=== PATIENT | male | born 1985 | race Caucasian/White ===

== ENCOUNTER 2017-06-25 22:02 | Inpatient (IN) | payer OTHER ==
[2017-06-25] MEDS ORDERED: diazePAM 5 MG TABLET PO ONE (22:07)
[2017-06-25] MEDS ORDERED: diphenhydrAMINE HCL 50 MG CAPSULE PO PRN (22:07)
[2017-06-25] MEDS ORDERED: MENTHOL/PHENOL 1 EACH UD MM PRN (22:07)
[2017-06-25] MEDS ORDERED: IBUPROFEN 400 MG TABLET (FP) PO PRN (22:07)
[2017-06-25] MEDS ORDERED: LOPERAMIDE HCL 2 MG CAPSULE PO PRN (22:07)
[2017-06-25] MEDS ORDERED: hydrOXYzine PAMOATE 25 MG CAPSULE (FP) PO PRN (22:07)
[2017-06-25] MEDS ORDERED: MAG HYDROX/AL HYDROX/SIMETH 30 ML UNIT-DOSE CUP PO PRN (22:07)
[2017-06-25] MEDS ORDERED: NICOTINE POLACRILEX 2 MG GUM BC PRN (22:07)
[2017-06-25] MEDS ORDERED: MAGNESIUM CITRATE 300 ML BOTTLE PO PRN (22:07)
[2017-06-25] MEDS ORDERED: ACETAMINOPHEN 325 MG TABLET (FP) PO PRN (22:07)
[2017-06-25] MEDS ORDERED: P-EPHED 60MG/TRIPROLIDI 2.5MG TABLET PO PRN (22:07)
[2017-06-25] MEDS ORDERED: MAGNESIUM HYDROX 2400MG/30ML ORAL SUSPENSION 30 ML CUP PO PRN (22:07)
[2017-06-25] MEDS ORDERED: CYCLOBENZAPRINE HCL 5 MG TABLET PO PRN (22:10)
--- NOTE | 2017-06-25 22:17 | HP ---
COWS - Scale Resting Pulse: 1= MS 81-100 Sweatin= Beads of Sweat on Face Restless Observation: 1= Difficult to Sit Still Pupil Size: 1= Pupils >than Normal Bone or Joint Aches: 2= Severe Diffuse Aches Runny Nose/ Eye Tearin= Runny Nose/Eyes GI Upset > 30mins: 1= Stomach Cramp Tremor Observation: 2= Slight Tremor Visible Yawning Observation: 0= None Anxiety or Irritability: 2=Irritable/Anxious Goose Flesh Skin: 0=Smooth Skin COWS Score: 15 CIWA Score - CIWA Score Nausea/Vomitin Muscle Tremors: 3 Anxiety: 3 Agitation: 2 Paroxysmal Sweats: 2 Orientation: 0-Oriented Tacttile Disturbances: 2-Mild Itch/Numbness/Burn Auditory Disturbances: 2-Mild Harshness/Frighten Visual Disturbances: 2-Mild Sensitivity Headache: 2-Mild CIWA-Ar Total Score: 20 Admission ROS BHS - HPI Chief Complaint: DEPENDENT ON HEROIN, ETOH, COCAINE AND OCC. MARIJUANA Allergies/Adverse Reactions: Allergies Allergy/AdvReac Type Severity Reaction Status Date / Time No Known Allergies Allergy Verified 12/05/15 15:39 History of Present Illness: THE PT. IS REQUESTING ADMISSION TO THE DETOX UNIT AND CAME FOR MEDICAL CLEARANCE. Exam Limitations: No Limitations - Ebola screening Have you traveled outside of the country in the last 21 days: No Have you had contact with anyone from an Ebola affected area: No Have you been sick,other than usual withdrawal symptoms: No Do you have a fever: No - Review of Systems Constitutional: See HPI, Malaise, Weakness EENT: reports: See HPI Respiratory: reports: See HPI Cardiac: reports: See HPI GI: reports: See HPI, Nausea, Abdominal cramping : reports: No Symptoms Reported, See HPI Musculoskeletal: reports: See HPI, Muscle Pain, Muscle Weakness Integumentary: reports: See HPI, Flushing, Sweating Neuro: reports: See HPI, Headache, Tremors, Weakness Endocrine: reports: See HPI Hematology: reports: See HPI Psychiatric: reports: Judgement Intact, Orientated x3, Anxious, Depressed Patient History - Patient Medical History Hx Seizures: No Hx Human Immunodeficiency Virus (HIV): No Hx Hepatitis C: No Hx Depression: Yes (AND ANXIETY) - Patient Surgical History Past Surgical History: Yes Hx Orthopedic Surgery: Yes (FOR FRACTURED RT. ANKLE BONES IN 2014) Other Surgical History: SURGERY FOR ABSCESS ON THE NECK - SEVERAL YRS. AGO - Smoking Cessation Smoking history: Current every day smoker Aproximately how many cigarettes per day: 10 Hx Chewing Tobacco Use: No Initiated information on smoking cessation: Yes 'Breaking Loose' booklet given: 06/25/17 - Substance & Tx. History Hx Alcohol Use: Yes Hx Substance Use: Yes Substance Use Type: Alcohol, Cocaine, Heroin, Marijuana Hx Substance Use Treatment: Yes - Substances Abused Alcohol Route: Oral Frequency: Daily Amount used: LIQUOR 20 SHOTS/D Age of first use: 7 Date of Last Use: 06/25/17 Heroin Route: Injection Frequency: Daily Amount used: 15 Age of first use: 25 Date of Last Use: 06/25/17 Cocaine Route: Injection Frequency: 3-6 times per week Amount used: $200/ON ALT. DAY Age of first use: 25 Date of Last Use: 06/24/17 Marijuana/Hashish Route: Smoking Frequency: 1-3 times last 30 days Amount used: $10/ONCE A MONTH Age of first use: 9 Date of Last Use: 06/18/17 Family Disease History - Family Disease History Family Disease History: Other: Father (DEPENDENT ON ETOH AND DRUGS), Mother ( DEPENDENT ON ETOH AND DRUGS) Admission Physical Exam [facility] - Physical General Appearance: Yes: No Apparent Distress, Nourished, Appropriately Dressed , Alcohol on Breath, Tremorous, Irritable, Sweating, Anxious HEENTM: Yes: Hearing grossly Normal, Normocephalic, Normal Voice, DEXTER, Pharynx Normal Respiratory: Yes: Chest Non-Tender, Lungs Clear, Normal Breath Sounds, No Respiratory Distress, No Accessory Muscle Use Neck: Yes: No masses,lesions,Nodules, Supple, Trachea in good position Breast: Yes: Breast Exam Deferred, Axillae without masses Cardiology: Yes: Regular Rhythm, S1, S2, Tachycardia Abdominal: Yes: Normal Bowel Sounds, Non Tender, Soft, Protuberent Back: Yes: Normal Inspection Musculoskeletal: Yes: full range of Motion, Gait Steady, Pelvis Stable, Muscle Pain, Muscle weakness Extremities: Yes: Normal Capillary Refill, Normal Range of Motion, Non-Tender, Tremors Neurological: Yes: ticket dispenser changer II-XII NML intact, Fully Oriented, Alert, Motor Strength 5/5, Normal Response, Depressed Affect Integumentary: Yes: Normal Color, Moist, Track [place] Lymphatic: Yes: Within Normal Limits - Diagnostic (1) Heroin dependence Current Visit: Yes Status: Chronic (2) EtOH dependence Current Visit: Yes Status: Chronic Qualifiers: Substance use status: uncomplicated Qualified Code(s): F10.20 - Alcohol dependence, uncomplicated; F10.20 - Alcohol dependence, uncomplicated; F10.20 - Alcohol dependence, uncomplicated (3) Cocaine dependence Current Visit: Yes Status: Chronic Qualifiers: Substance use status: uncomplicated Qualified Code(s): F14.20 - Cocaine dependence, uncomplicated; F14.20 - Cocaine dependence, uncomplicated; F14.20 - Cocaine dependence, uncomplicated (4) Cannabis dependence Current Visit: Yes Status: Chronic (5) Anxiety and depression Current Visit: Yes Status: Chronic (6) Nicotine dependence Current Visit: Yes Status: Chronic Qualifiers: Nicotine product type: cigarettes (7) Methadone maintenance therapy patient Current Visit: Yes Status: Chronic Cleared for Admission S - Detox or Rehab S Level of Care: Medically Managed Detox Regimen/Protocol: Valium S Breath Alcohol Content Breath Alcohol Content: 0.138 Vital Signs - Vital Signs Vital Signs Refused: No Temperature: 96.9 F Temperature Source: Oral Pulse Rate: 94 Respiratory Rate: 16 Blood Pressure: 139/94 BP Location: Left Arm - Height Height: 5 ft 6 in - Weight Weight: 190 lb Weight Measurement Method: Estimated by Patient Body Mass Index (BMI): 30.7 Urine Drug Screen - Test Device Lot Number: [id number] Expiration Date: 02/22/19 - Control Is Test Valid: Yes - Results Drug Screen Negative: No Urine Drug Screen Results: THC-Marijuana, KAYLEE-Cocaine, OPI-Opiates, BZO- Benzodiazepines, MTD-Methadone
[2017-06-25 22:42] VITALS: BMI 30.7
[2017-06-25] MEDS: guaiFENesin/D-METHORPHAN HB 10 ML UNIT-DOSE CUPS PO PRN (23:20)
[2017-06-25] MEDS: diazePAM 5 MG TABLET PO SCH (23:24)
[2017-06-26] MEDS: diazePAM 5 MG TABLET PO SCH ×3 (05:26→22:03)
[2017-06-26] MEDS: guaiFENesin/D-METHORPHAN HB 10 ML UNIT-DOSE CUPS PO PRN (07:19)
[2017-06-26] MEDS: METHADONE HCL 10 MG TABLET PO SCH (07:19)
[2017-06-26] MEDS: cloNIDine HCL 0.1 MG TABLET PO PRN (07:24)
[2017-06-26] MEDS: diazePAM 5 MG TABLET PO PRN ×2 (10:09→16:56)
[2017-06-26] MEDS: PRENATAL VITAMINS W/ FOLIC ACID TABLET (FP) PO SCH (10:09)
[2017-06-26] MEDS: NICOTINE 14 MG/24 HOURS TOPICAL PATCH TD SCH (10:10)
[2017-06-26] MEDS ORDERED: cloNIDine HCL 0.1 MG TABLET PO ONE (10:44)
--- NOTE | 2017-06-26 10:44 | PN ---
S CIWA - CIWA Score Nausea/Vomitin Muscle Tremors: 4-Moderate,w/Arms Extend Anxiety: 4-Mod. Anxious/Guarded Agitation: 4-Moderately Restless Paroxysmal Sweats: 3 Orientation: 0-Oriented Tacttile Disturbances: 0-None Auditory Disturbances: 0-None Visual Disturbances: 0-None Headache: 0-None Present CIWA-Ar Total Score: 18 BHS COWS - Scale Resting Pulse: 2= CO 101-120 Sweatin= Chills/Flushing Restless Observation: 1= Difficult to Sit Still Pupil Size: 1= Pupils >than Normal Bone or Joint Aches: 2= Severe Diffuse Aches Runny Nose/ Eye Tearin= Runny Nose/Eyes GI Upset > 30mins: 2= Nausea/Diarrhea Tremor Observation of Outstretched Hands: 2= Slight Tremor Visible Yawning Observation: 1= 1-2x During Session Anxiety or Irritability: 2=Irritable/Anxious Goose Flesh Skin: 3=Piloerection COWS Score: 19 S Progress Note (SOAP) Subjective: nausea, sweats, interrupted sleep, anxiety, tremors, body aches, tachycardia Objective: 06/26/17 10:43 Vital Signs - 24 hr 06/25/17 06/25/17 06/26/17 22:41 23:03 01:42 Temperature 96.9 F L 97.5 F L Pulse Rate 94 H 93 H Respiratory 16 18 18 Rate Blood Pressure 139/94 140/81 06/26/17 06/26/17 06/26/17 03:30 06:19 08:58 Temperature 97.3 F L 97.5 F L Pulse Rate 115 H 106 H Respiratory 18 18 20 Rate Blood Pressure 152/94 155/83 labs pending, tachycardia and hypertension noted to give all prn valium Assessment: 06/26/17 10:44 withdrawal sx Plan: cont detox, fluids, symptomatic relief of withdrawal prn valium as ordered to be given encoruage ambulation
--- NOTE | 2017-06-26 11:23 | CONSULT ---
[facility] Psychiatric Consult - Data Date of interview: 06/26/17 Admission source: [facility] Identifying data: First admission to [facility] for this 31 y/o male seeking detox treatment on for heroin,cocaine,alcohol and marijuana dependence.Patient s single,a father of three,domiciled,unemployed and supported by relatives. Substance Abuse History: Confirmed by patient in this session. Smoking Cessation. Smoking history: Current every day smoker. Aproximately how many cigarettes per day: 10. Hx Chewing Tobacco Use: No. Initiated information on smoking cessation: Yes. 'Breaking Loose' booklet given: 06/25/17. - Substance & Tx. History. Hx Alcohol Use: Yes. Hx Substance Use: Yes. Substance Use Type : Alcohol, Cocaine, Heroin, Marijuana. Hx Substance Use Treatment: Yes. - Substances Abused. Alcohol. Route: Oral. Frequency: Daily. Amount used: LIQUOR 20 SHOTS/D. Age of first use: 7. Date of Last Use: 06/25/17. Heroin. Route: Injection. Frequency: Daily. Amount used: 15. Age of first use: 25. Date of Last Use: 06/25/17. Cocaine. Route: Injection. Frequency : 3-6 times per week. Amount used: $200/ON ALT. DAY. Age of first use: 25. Date of Last Use: 06/24/17. Marijuana/Hashish. Route: Smoking. Frequency: 1-3 times last 30 days. Amount used: $10/ONCE A MONTH. Age of first use: 9. Date of Last Use: 06/18/17 Medical History: Remarkable for bronchial asthma,sciatica,nephrolithiasis and a history of orthosurgery for fracture of right ankle (2014). Psychiatric History: No reported history of psychiatric hospitalizations.Diagnosed with ADHD during adolescence.No OPD care.Mr Alex reports that he used to be on methadone maintenance (160 mg/day) at [facility] (downstairs).Patient denies history of sucicide attempts. Physical/Sexual Abuse/Trauma History: Patient denies history of abuse. Additional Comment: Urine Drug Screen Results: THC-Marijuana, KAYLEE-Cocaine, OPI- Opiates, BZO-Benzodiazepines, MTD-Methadone.Noted. Mental Status Exam - Mental Status Exam Alert and Oriented to: Time, Place, Person Cognitive Function: Good Patient Appearance: Well Groomed (tattoos on arms + forearms) Mood: Nervous, Withdrawn Affect: Mood Congruent Patient Behavior: Fatigued, Cooperative (superficiallly) Speech Pattern: Clear Voice Loudness: Normal Thought Process: Goal Oriented Thought Disorder: Not Present Hallucinations: Denies Suicidal Ideation: Denies Homicidal Ideation: Denies Insight/Judgement: Poor Sleep: Poorly, Difficulty falling asleep (wants ambien) Appetite: Good Muscle strength/Tone: Normal Gait/Station: Normal Psychiatric Findings - Problem List (Roann 1, 2,3) (1) Opioid dependence on agonist therapy Current Visit: Yes Status: Acute (2) EtOH dependence Current Visit: Yes Status: Chronic Qualifiers: Substance use status: uncomplicated Qualified Code(s): F10.20 - Alcohol dependence, uncomplicated; F10.20 - Alcohol dependence, uncomplicated; F10.20 - Alcohol dependence, uncomplicated (3) Cannabis dependence Current Visit: Yes Status: Acute (4) Cocaine dependence Current Visit: Yes Status: Acute Qualifiers: Substance use status: uncomplicated Qualified Code(s): F14.20 - Cocaine dependence, uncomplicated; F14.20 - Cocaine dependence, uncomplicated; F14.20 - Cocaine dependence, uncomplicated (5) Nicotine dependence Current Visit: Yes Status: Acute Qualifiers: Nicotine product type: cigarettes (6) Substance induced mood disorder Current Visit: Yes Status: Acute (7) Back pain Current Visit: Yes Status: Chronic (8) Insomnia Current Visit: Yes Status: Acute - Initial Treatment Plan Initial Treatment Plan: Psychoeducation.Detoxification.Ambien 10 mg po hs prn.Patient is made aware of parasomnias.Agrees with this careplan.Observation.
[2017-06-26] MEDS: PANTOPRAZOLE 40 MG TABLET (FP) PO SCH (11:53)
[2017-06-26] MEDS: NAPROXEN 500 MG TABLET (FP) PO SCH ×2 (11:54→22:03)
--- NOTE | 2017-06-26 11:57 | EKG ---
Test Reason : Blood Pressure : / mmHG Vent. Rate : 094 BPM Atrial Rate : 094 BPM P-R Int : 112 ms QRS Dur : 096 ms QT Int : 400 ms P-R-T Axes : 051 044 077 degrees QTc Int : 500 ms NORMAL SINUS RHYTHM LEFT VENTRICULAR HYPERTROPHY WITH REPOLARIZATION ABNORMALITY PROLONGED QT ABNORMAL ECG NO PREVIOUS ECGS AVAILABLE Confirmed by STEPHANIE DALY MD ([id number]) on 06/26/2017 11:56:55 AM Referred By: Richard Lira Confirmed By:STEPHANIE DALY MD
[2017-06-26] MEDS ORDERED: ZOLPIDEM TARTRATE 5 MG TABLET PO PRN (12:22)
[2017-06-26] MEDS: CYCLOBENZAPRINE HCL 5 MG TABLET PO SCH ×2 (13:31→22:03)
[2017-06-26] MEDS: GABAPENTIN 100 MG CAPSULE (FP) PO SCH ×2 (13:31→22:03)
[2017-06-26 13:33] LABS: MCHC 34.2 g/dl (32.0-35.9); MEAN CELL VOLUME 90.8 fl (80-96); MEAN PLT VOLUME 9.3 fl (7.5-11.1); PLATELET COUNT 289 K/MM3 (134-434); RDW 14.6 % (11.9-15.9); WHITE BLOOD COUNT 10.2 K/mm3 (4.0-10.0)
[2017-06-26 13:46] LABS: ALBUMIN 3.9 g/dl (3.4-5.0); ANION GAP 13 (8-16); CALCIUM 9.6 mg/dL (8.5-10.1); CO2 31 mmol/L (21-32); GLUCOSE,RANDOM 112 mg/dL (74-106); SGOT/AST 60 U/L (15-37); SGPT/ALT 63 U/L (12-78)
[2017-06-26 13:48] LABS: ALK PHOS 133 U/L (45-117); BILIRUBIN,TOTAL 1.3 mg/dL (0.2-1.0)
[2017-06-26 14:45] LABS: HIV 1 & 2 AB NEGATIVE; HIV 1 AGp24 NEGATIVE
[2017-06-26] MEDS ORDERED: ZOLPIDEM TARTRATE 10 MG TABLET (PARK CARE ONLY) PO PRN (22:00)
[2017-06-26] MEDS ORDERED: THIAMINE HCL 100 MG TABLET (FP) PO SCH (22:00)
[2017-06-27] MEDS: GABAPENTIN 100 MG CAPSULE (FP) PO SCH ×2 (05:37→15:00)
[2017-06-27] MEDS: METHADONE HCL 10 MG TABLET PO SCH (05:37)
[2017-06-27] MEDS: CYCLOBENZAPRINE HCL 5 MG TABLET PO SCH ×2 (05:37→15:00)
[2017-06-27 09:19] VITALS: TEMP 97.8
[2017-06-27] MEDS ORDERED: diazePAM 5 MG TABLET PO SCH (10:00)
[2017-06-27] MEDS: PRENATAL VITAMINS W/ FOLIC ACID TABLET (FP) PO SCH (10:06)
[2017-06-27] MEDS: NAPROXEN 500 MG TABLET (FP) PO SCH (10:06)
[2017-06-27] MEDS: cloNIDine HCL 0.1 MG TABLET PO PRN (10:06)
[2017-06-27] MEDS: PANTOPRAZOLE 40 MG TABLET (FP) PO SCH (10:06)
[2017-06-27] MEDS: NICOTINE 14 MG/24 HOURS TOPICAL PATCH TD SCH (10:08)
--- NOTE | 2017-06-27 11:26 | PN ---
S CIWA - CIWA Score Nausea/Vomitin Muscle Tremors: 4-Moderate,w/Arms Extend Anxiety: 3 Agitation: 1-Slight > Activity Paroxysmal Sweats: No Perspiration Orientation: 2-Disoriented Date<2 days Tacttile Disturbances: 2-Mild Itch/Numbness/Burn Auditory Disturbances: 0-None Visual Disturbances: 0-None Headache: 3-Moderate CIWA-Ar Total Score: 20 BHS COWS - Scale Resting Pulse: 0= NV 80 or Below Sweatin= Chills/Flushing Restless Observation: 1= Difficult to Sit Still Pupil Size: 0= Normal to Room Light Bone or Joint Aches: 2= Severe Diffuse Aches Runny Nose/ Eye Tearin= None GI Upset > 30mins: 1= Stomach Cramp Tremor Observation of Outstretched Hands: 2= Slight Tremor Visible Yawning Observation: 0= None Anxiety or Irritability: 2=Irritable/Anxious Goose Flesh Skin: 3=Piloerection COWS Score: 12 S Progress Note (SOAP) Subjective: Body Aches, Tremors, H/A, Fatigue, Vomiting. Objective: PT. A & O X 2 (DISORIENTED ABOUT DAY / DATE). NO ACUTE DISTRESS. 06/27/17 11:23 Vital Signs Temperature 97.8 F 06/27/17 09:18 Pulse Rate 79 06/27/17 09:18 Respiratory Rate 18 06/27/17 09:18 Blood Pressure 144/84 06/27/17 09:18 O2 Sat by Pulse Oximetry (%) Laboratory Tests 06/26/17 06/26/17 06/26/17 09:00 09:00 09:00 WBC 10.2 H D RBC 4.80 Hgb 14.9 Hct 43.6 MCV 90.8 MCH 31.0 MCHC 34.2 RDW 14.6 Plt Count 289 MPV 9.3 Sodium 133 L Potassium 3.6 D Chloride 89 L D Carbon Dioxide 31 Anion Gap 13 BUN 13 D Creatinine 1.0 Creat Clearance w eGFR > 60 Random Glucose 112 H Calcium 9.6 Total Bilirubin 1.3 H D AST 60 H D ALT 63 D Alkaline Phosphatase 133 H D Total Protein 8.0 Albumin 3.9 RPR Titer Nonreactive HIV 1&2 Antibody Screen HIV P24 Antigen 06/26/17 09:00 WBC RBC Hgb Hct MCV MCH MCHC RDW Plt Count MPV Sodium Potassium Chloride Carbon Dioxide Anion Gap BUN Creatinine Creat Clearance w eGFR Random Glucose Calcium Total Bilirubin AST ALT Alkaline Phosphatase Total Protein Albumin RPR Titer HIV 1&2 Antibody Screen Negative HIV P24 Antigen Negative LABS NOTED. UA RESULTS PENDING. 06/27/17 11:25 Assessment: 06/27/17 11:24 WITHDRAWAL SYMPTOMS. Plan: CONTINUE DETOX. INCREASE DAILY PO FLUID INTAKE.
[2017-06-27] MEDS ORDERED: TRIMETHOBENZAMIDE HCL 200MG/2ML INJ IM PRN (12:45)
[2017-06-27] MEDS: diazePAM 5 MG TABLET PO PRN (12:46)
[2017-06-27 14:23] VITALS: BP 123/63; PULSE 84
--- NOTE | 2017-06-27 15:17 | DS ---
[facility] Detox Discharge Summary Admission Date: 06/25/17 Discharge Date: 06/27/17 - History Present History: Alcohol Dependence, Cannabis Dependence, Cocaine Dependence, Opioid Dependence, MMTP Additional Comments: PATIENT DOES NOT WISH TO COMPLETE DETOX REGIMEN. PATIENT PREFERS TO RETURN TO HIS PREVIOUS MMTP PROGRAM ([facility] OTP / MMTP PROGRAM, [facility].) FOR TREATMENT RATHER THAN TO STAY TO COMPLETE DETOX REGIMEN. PATIENT ADVISED TO GO IMMEDIATELY TO NEAREST ER SHOULD ANY INTOLERABLE DETOX SYMPTOMS DEVELOP AT ANY TIME. PATIENT LEFT DETOX UNIT IN STABLE MEDICAL CONDITION. Pertinent Past History: MMTP, Anxiety / Depression, Insomnia. - Physical Exam Results Vital Signs: Vital Signs Temperature 97.8 F 06/27/17 14:22 Pulse Rate 84 06/27/17 14:22 Respiratory Rate 18 06/27/17 14:22 Blood Pressure 123/63 06/27/17 14:22 O2 Sat by Pulse Oximetry (%) Pertinent Admission Physical Exam Findings: WITHDRAWAL SYMPTOMS. Laboratory Tests 06/26/17 06/26/17 06/26/17 09:00 09:00 09:00 WBC 10.2 H D RBC 4.80 Hgb 14.9 Hct 43.6 MCV 90.8 MCH 31.0 MCHC 34.2 RDW 14.6 Plt Count 289 MPV 9.3 Sodium 133 L Potassium 3.6 D Chloride 89 L D Carbon Dioxide 31 Anion Gap 13 BUN 13 D Creatinine 1.0 Creat Clearance w eGFR > 60 Random Glucose 112 H Calcium 9.6 Total Bilirubin 1.3 H D AST 60 H D ALT 63 D Alkaline Phosphatase 133 H D Total Protein 8.0 Albumin 3.9 RPR Titer Nonreactive HIV 1&2 Antibody Screen HIV P24 Antigen 06/26/17 09:00 WBC RBC Hgb Hct MCV MCH MCHC RDW Plt Count MPV Sodium Potassium Chloride Carbon Dioxide Anion Gap BUN Creatinine Creat Clearance w eGFR Random Glucose Calcium Total Bilirubin AST ALT Alkaline Phosphatase Total Protein Albumin RPR Titer HIV 1&2 Antibody Screen Negative HIV P24 Antigen Negative LABS NOTED. - Treatment Hospital Course: Detoxed Safely - Medication Discharge Medications: Ambulatory Orders NK [No Known Home Medication] 06/25/17 - Diagnosis (1) Cannabis dependence Current Visit: Yes Status: Acute (2) Cocaine dependence Current Visit: Yes Status: Acute Qualifiers: Substance use status: uncomplicated Qualified Code(s): F14.20 - Cocaine dependence, uncomplicated; F14.20 - Cocaine dependence, uncomplicated; F14.20 - Cocaine dependence, uncomplicated (3) Insomnia Current Visit: Yes Status: Acute Qualifiers: Insomnia type: unspecified Qualified Code(s): G47.00 - Insomnia, unspecified; G47.00 - Insomnia, unspecified (4) Nicotine dependence Current Visit: Yes Status: Chronic Qualifiers: Nicotine product type: cigarettes Substance use status: uncomplicated Qualified Code(s): F17.210 - Nicotine dependence, cigarettes, uncomplicated; F17.210 - Nicotine dependence, cigarettes, uncomplicated (5) Opioid dependence on agonist therapy Current Visit: Yes Status: Chronic (6) Substance induced mood disorder Current Visit: Yes Status: Acute (7) Anxiety and depression Current Visit: Yes Status: Chronic (8) Methadone maintenance therapy patient Current Visit: Yes Status: Chronic - AMA Did Patient Leave Against Medical Advice: Yes (PT DID NOT WISH TO STAY TO COMPLETE DETOX. SEE COMMENTS SECTION ABOVE.)
[2017-06-27 17:10] LABS: URINE APPEARANCE SLCLOUDY; URINE BILIRUBIN NEGATIVE (NEGATIVE); URINE BLOOD NEGATIVE (NEGATIVE); URINE COLOR AMBER; URINE GLUCOSE (UA) NEGATIVE (NEGATIVE); URINE KETONE TRACE (NEGATIVE); URINE LEUK ESTERASE NEGATIVE (NEGATIVE); URINE NITRITE NEGATIVE (NEGATIVE)
[2017-06-27 17:14] LABS: URINE PROTEIN 1+ (NEGATIVE)
[2017-06-27 18:03] LABS: URINE HYALINE CAST 5 /lpf; URINE MUCUS MANY; URINE RBC 5 /hpf (0-3); URINE WBC 18 /hpf (3-5)
[2017-06-29] MEDS ORDERED: diazePAM 5 MG TABLET PO SCH (10:00)
== END 2017-06-27 14:50 | disposition left against medical advice (07) | DRG 770 ==
LOC: YASAS 22:02 → Y3N 22:03 → UNDODISIN 06-27 14:55
PROVIDERS: ADMIT Internal Medicine; ATTEND Internal Medicine
PROC: HZ2ZZZZ Detoxification Services for Substance Abuse Treatment (ICD-10-PCS; principal; 2017-06-25)
DX: F11.20 Opioid dependence, uncomplicated (principal); F10.20 Alcohol dependence, uncomplicated; F14.20 Cocaine dependence, uncomplicated; F12.20 Cannabis dependence, uncomplicated; F17.210 Nicotine dependence, cigarettes, uncomplicated; F19.24 Other psychoactive substance dependence with psychoactive substance-induced mood disorder; F41.8 Other specified anxiety disorders; G47.00 Insomnia, unspecified; M54.5 Low back pain; G89.29 Other chronic pain
CPT/HCPCS: 36415; 80053; 81003; 81015; 85027; 86593; 87389; 93005; 93010

== ENCOUNTER 2018-02-02 21:28 | Inpatient (IN) | payer OTHER ==
[2018-02-02 23:39] VITALS: BMI 29.1
--- NOTE | 2018-02-03 02:34 | HP ---
COWS - Scale Resting Pulse: 1= OK 81-100 Sweatin=Flushed/Facial Moisture Restless Observation: 1= Difficult to Sit Still Pupil Size: 1= Pupils >than Normal Bone or Joint Aches: 2= Severe Diffuse Aches Runny Nose/ Eye Tearin= Nasal Congestion GI Upset > 30mins: 3= Vomiting/Diarrhea (vomiting x 7, diarrhea x 5) Tremor Observation: 2= Slight Tremor Visible Yawning Observation: 0= None Anxiety or Irritability: 2=Irritable/Anxious Goose Flesh Skin: 0=Smooth Skin COWS Score: 15 CIWA Score - CIWA Score Nausea/Vomitin Muscle Tremors: 4-Moderate,w/Arms Extend Anxiety: 4-Mod. Anxious/Guarded Agitation: 2 Paroxysmal Sweats: No Perspiration Orientation: 0-Oriented Tacttile Disturbances: 0-None Auditory Disturbances: 0-None Visual Disturbances: 0-None Headache: 3-Moderate CIWA-Ar Total Score: 16 Admission ROS S - HPI Chief Complaint: Alcohol and heroin withdrawal symptoms Allergies/Adverse Reactions: Allergies Allergy/AdvReac Type Severity Reaction Status Date / Time No Known Allergies Allergy Verified 02/03/18 02:42 History of Present Illness: 32 years old male with aq long history of alcohol and heroin dependence is seeking admission to detox. Patient has been to previous detox and reports 3 years of sobriety. He has medical history of HTN, asthma, depression and anxiety. Patient has an abscess to his left arm. He starts that he wasa treated at [facility] and released today. He denies suicide attempt and suicidal ideation at this time. He is on methadone 120mg tablet at [facility]. LDM was 02/02/2018. Dose is yet to be confirmed by the nurse. Exam Limitations: No Limitations - Ebola screening Have you traveled outside of the country in the last 21 days: No Have you had contact with anyone from an Ebola affected area: No Have you been sick,other than usual withdrawal symptoms: No Do you have a fever: No - Review of Systems Constitutional: Chills, Loss of Appetite, Malaise, Night Sweats, Changes in sleep EENT: reports: No Symptoms Reported Respiratory: reports: No Symptoms reported Cardiac: reports: No Symptoms Reported GI: reports: Diarrhea, Nausea, Poor Appetite, Poor Fluid Intake, Vomiting : reports: No Symptoms Reported Musculoskeletal: reports: Back Pain, Muscle Pain Integumentary: reports: No Symptoms Reported Neuro: reports: Tremors Endocrine: reports: No Symptoms Reported Hematology: reports: No Symptoms Reported Psychiatric: reports: Orientated x3, Agitated, Anxious, Depressed Other Systems: Reviewed and Negative Patient History - Patient Medical History Hx Asthma: Yes (VENTOLIN) Hx Chronic Obstructive Pulmonary Disease (COPD): No Hx Cardiac Disorders: No Hx Hypertension: Yes (Not on medication) Hx Seizures: No Hx Diabetes: No Hx Gastrointestinal Disorders: No Hx Genitourinary Disorders: No Hx Sexually Transmitted Disorders: No Hx Renal Disease (ESRD): No Hx Human Immunodeficiency Virus (HIV): No Hx Hepatitis C: No Hx Depression: Yes Hx Suicide Attempt: No Hx Bipolar Disorder: No Hx Schizophrenia: No - Patient Surgical History Past Surgical History: Yes Hx Neurologic Surgery: No Hx Cataract Extraction: No Hx Cardiac Surgery: No Hx Lung Surgery: No Hx Breast Surgery: No Hx Breast Biopsy: No Hx Abdominal Surgery: No Hx Appendectomy: No Hx Cholecystectomy: No Hx Genitourinary Surgery: No Hx Section: No Hx Orthopedic Surgery: Yes (FOR FRACTURED RT. ANKLE BONES IN 2014) Other Surgical History: SURGERY FOR ABSCESS ON THE NECK - SEVERAL YRS. AGO Anesthesia Reaction: No - PPD History Previous Implant?: Yes Documented Results: Negative w/o proof Implanted On Prior [facility] Admission?: No Date: 06/27/17 - Smoking Cessation Smoking history: Current every day smoker Have you smoked in the past 12 months: Yes Aproximately how many cigarettes per day: 10 Hx Chewing Tobacco Use: No Initiated information on smoking cessation: Yes 'Breaking Loose' booklet given: 02/03/18 - Substance & Tx. History Hx Alcohol Use: Yes Hx Substance Use: Yes Substance Use Type: Cocaine, Heroin Hx Substance Use Treatment: Yes - Substances Abused Cocaine Route: Smoking Frequency: Daily Amount used: $50 Age of first use: 17 Date of Last Use: 02/02/18 Heroin Route: Inhalation Frequency: Daily Amount used: 10bags Age of first use: 19 Date of Last Use: 02/03/18 Alcohol Route: Oral Frequency: Daily Amount used: liquor- 2nibs Age of first use: 18 Date of Last Use: 02/03/18 xanax Route: Oral Frequency: Daily Amount used: 2mg Age of first use: 17 Date of Last Use: 02/01/18 Family Disease History - Family Disease History Family Disease History: Other: Father (DEPENDENT ON ETOH AND DRUGS), Mother ( DEPENDENT ON ETOH AND DRUGS) Admission Physical Exam [facility] - Vital Signs Vital Signs: Vital Signs - 24 hr 02/02/18 23:36 Temperature 98.6 F Pulse Rate 93 H Respiratory 20 Rate Blood Pressure 155/91 - Physical General Appearance: Yes: Moderate Distress, Tremorous, Irritable, Sweating, Anxious HEENTM: Yes: Normal ENT Inspection, Normal Voice, DEXTER Respiratory: Yes: Lungs Clear, Normal Breath Sounds, No Respiratory Distress Neck: Yes: Supple Breast: Yes: Breast Exam Deferred Cardiology: Yes: Regular Rhythm, Regular Rate Abdominal: Yes: Normal Bowel Sounds, Soft Genitourinary: Yes: Within Normal Limits Back: Yes: Normal Inspection Musculoskeletal: Yes: Back pain, Muscle Pain Extremities: Yes: Tremors Neurological: Yes: Alert, Normal Mood/Affect Integumentary: Yes: Dry, Rash Lymphatic: Yes: Within Normal Limits - Diagnostic (1) HTN (hypertension) Current Visit: Yes Status: Chronic (2) Asthma Current Visit: Yes Status: Chronic Qualifiers: Asthma complication type: unspecified (3) Cannabis dependence Current Visit: Yes Status: Chronic (4) Cocaine dependence Current Visit: Yes Status: Chronic Qualifiers: Substance use status: uncomplicated Qualified Code(s): F14.20 - Cocaine dependence, uncomplicated (5) Anxiety and depression Current Visit: Yes Status: Chronic (6) Methadone maintenance therapy patient Current Visit: Yes Status: Chronic (7) Opioid dependence on agonist therapy Current Visit: Yes Status: Chronic S Breath Alcohol Content Breath Alcohol Content: 0.228 Urine Drug Screen - Results Drug Screen Negative: No Urine Drug Screen Results: KAYLEE-Cocaine, OPI-Opiates, BZO-Benzodiazepines, MTD- Methadone
[2018-02-03] MEDS ORDERED: diazePAM 5 MG TABLET PO ONE (02:47)
[2018-02-03] MEDS ORDERED: guaiFENesin/D-METHORPHAN HB 10 ML UNIT-DOSE CUPS PO PRN (02:47)
[2018-02-03] MEDS ORDERED: MAGNESIUM CITRATE 300 ML BOTTLE PO PRN (02:47)
[2018-02-03] MEDS ORDERED: MAG HYDROX/AL HYDROX/SIMETH 30 ML UNIT-DOSE CUP PO PRN (02:47)
[2018-02-03] MEDS ORDERED: MAGNESIUM HYDROX 2400MG/30ML ORAL SUSPENSION 30 ML CUP PO PRN (02:47)
[2018-02-03] MEDS ORDERED: P-EPHED 60MG/TRIPROLIDI 2.5MG TABLET PO PRN (02:47)
[2018-02-03] MEDS ORDERED: NICOTINE POLACRILEX 2 MG GUM BC PRN (02:47)
[2018-02-03] MEDS ORDERED: LOPERAMIDE HCL 2 MG CAPSULE PO PRN (02:47)
[2018-02-03] MEDS ORDERED: MENTHOL/PHENOL 1 EACH UD MM PRN (02:47)
[2018-02-03] MEDS: ACETAMINOPHEN 325 MG TABLET (FP) PO PRN ×2 (03:22→22:08)
[2018-02-03] MEDS: IBUPROFEN 400 MG TABLET (FP) PO PRN ×2 (05:35→18:14)
[2018-02-03] MEDS: diazePAM 5 MG TABLET PO SCH ×3 (05:36→22:07)
[2018-02-03] MEDS: diazePAM 5 MG TABLET PO PRN ×2 (07:34→17:32)
--- NOTE | 2018-02-03 09:23 | EKG ---
Test Reason : Blood Pressure : / mmHG Vent. Rate : 083 BPM Atrial Rate : 083 BPM P-R Int : 134 ms QRS Dur : 090 ms QT Int : 420 ms P-R-T Axes : 002 008 006 degrees QTc Int : 493 ms NORMAL SINUS RHYTHM MODERATE VOLTAGE CRITERIA FOR LVH, MAY BE NORMAL VARIANT CANNOT RULE OUT INFERIOR INFARCT , AGE UNDETERMINED ABNORMAL ECG WHEN COMPARED WITH ECG OF 25-JUN-2017 22:58, MINIMAL CRITERIA FOR INFERIOR INFARCT ARE NOW PRESENT ST NO LONGER DEPRESSED IN LATERAL LEADS T WAVE INVERSION NO LONGER EVIDENT IN ANTERIOR LEADS Confirmed by RENATA CRAWFORD, HEELN ([id number]) on 02/03/2018 9:22:47 AM Referred By: Greg Smith Confirmed By:HELEN YANEZ MD
[2018-02-03] MEDS ORDERED: METHADONE HCL 10 MG TABLET PO SCH (09:45)
[2018-02-03] MEDS: PRENATAL VITAMINS W/ FOLIC ACID TABLET (FP) PO SCH (10:11)
[2018-02-03] MEDS: NICOTINE 14 MG/24 HOURS TOPICAL PATCH TD SCH (10:11)
[2018-02-03 10:12] LABS: URINE APPEARANCE CLEAR; URINE BILIRUBIN NEGATIVE (<2.0 mg/dL); URINE COLOR YELLOW; URINE GLUCOSE (UA) NEGATIVE (NEGATIVE); URINE KETONE TRACE (NEGATIVE); URINE LEUK ESTERASE NEGATIVE (NEGATIVE); URINE NITRITE NEGATIVE (NEGATIVE); URINE PROTEIN NEGATIVE (NEGATIVE); URINE UROBILINOGEN 4.0 E.U/dl mg/dL (0.2-1.0)
[2018-02-03 10:21] LABS: HEMATOCRIT 38.1 % (35.4-49); HEMOGLOBIN 13.2 GM/dL (11.7-16.9); MCH 33.2 pg (25.7-33.7); MCHC 34.7 g/dl (32.0-35.9); MEAN CELL VOLUME 95.5 fl (80-96); MEAN PLT VOLUME 8.7 fl (7.5-11.1); PLATELET COUNT 233 K/MM3 (134-434); RBC 3.99 M/mm3 (4.00-5.60); RDW 13.6 % (11.9-15.9); WHITE BLOOD COUNT 5.9 K/mm3 (4.0-10.0)
[2018-02-03 10:40] LABS: CHLORIDE 103 mmol/L (98-107); POTASSIUM 4.2 mmol/L (3.5-5.1); SODIUM 141 mmol/L (136-145)
[2018-02-03 11:12] LABS: ALBUMIN 3.1 g/dl (3.4-5.0); ALK PHOS 114 U/L (45-117); ANION GAP 9 (8-16); BILIRUBIN,TOTAL 0.7 mg/dL (0.2-1.0); BLOOD UREA NITROGEN 11 mg/dL (7-18); CALCIUM 8.6 mg/dL (8.5-10.1); CO2 29 mmol/L (21-32); CREATININE 0.8 mg/dL (0.7-1.3); GLUCOSE,RANDOM 100 mg/dL (74-106); SGOT/AST 116 U/L (15-37); SGPT/ALT 61 U/L (12-78); TOT PROT 6.6 g/dl (6.4-8.2)
[2018-02-03] MEDS ORDERED: CEPHALEXIN MONOHYDRATE 500 MG CAPSULE (UD) PO ONE (13:30)
--- NOTE | 2018-02-03 15:37 | EKG ---
Test Reason : Blood Pressure : / mmHG Vent. Rate : 071 BPM Atrial Rate : 071 BPM P-R Int : 106 ms QRS Dur : 094 ms QT Int : 450 ms P-R-T Axes : 014 044 039 degrees QTc Int : 489 ms SINUS RHYTHM WITH SHORT TN PROLONGED QT ABNORMAL ECG WHEN COMPARED WITH ECG OF 03-FEB-2018 03:31, MINIMAL CRITERIA FOR INFERIOR INFARCT ARE NO LONGER PRESENT Confirmed by RENATA CRAWFORD, HELEN ([id number]) on 02/03/2018 3:37:41 PM Referred By: Greg Smtih Confirmed By:HELEN YANEZ MD
[2018-02-03] MEDS ORDERED: cloNIDine HCL 0.1 MG TABLET PO ONE ×2 (16:05→22:20)
[2018-02-03] MEDS: CEPHALEXIN MONOHYDRATE 500 MG CAPSULE (UD) PO SCH ×2 (17:32→23:19)
[2018-02-03] MEDS ORDERED: ONDANSETRON *ODT* 4 MG TABLET SL PRN (18:01)
[2018-02-03] MEDS: ALBUTEROL SO4 18 GM HFA INHALER IH PRN (18:11)
[2018-02-03] MEDS: THIAMINE HCL 100 MG TABLET (FP) PO SCH (22:08)
--- NOTE | 2018-02-03 22:26 | PN ---
[facility] Progress Note (SOAP) Subjective: Nurse, Mr. Casey Sharma reports that patient's blood pressure is B/P 165/112 , HR 73. Patient is asymptomatic. Objective: 02/03/18 22:25 Vital Signs Temperature 97.5 F L 02/03/18 22:20 Pulse Rate 73 02/03/18 22:20 Respiratory Rate 22 02/03/18 22:20 Blood Pressure 165/112 02/03/18 22:20 O2 Sat by Pulse Oximetry (%) Laboratory Last Values WBC 5.9 K/mm3 (4.0-10.0) D 02/03/18 08:00 RBC 3.99 M/mm3 (4.00-5.60) L 02/03/18 08:00 Hgb 13.2 GM/dL (11.7-16.9) D 02/03/18 08:00 Hct 38.1 % (35.4-49) 02/03/18 08:00 MCV 95.5 fl (80-96) 02/03/18 08:00 MCH 33.2 pg (25.7-33.7) 02/03/18 08:00 MCHC 34.7 g/dl (32.0-35.9) 02/03/18 08:00 RDW 13.6 % (11.9-15.9) 02/03/18 08:00 Plt Count 233 K/MM3 (134-434) 02/03/18 08:00 MPV 8.7 fl (7.5-11.1) 02/03/18 08:00 Sodium 141 mmol/L (136-145) 02/03/18 08:00 Potassium 4.2 mmol/L (3.5-5.1) 02/03/18 08:00 Chloride 103 mmol/L (98-107) D 02/03/18 08:00 Carbon Dioxide 29 mmol/L (21-32) 02/03/18 08:00 Anion Gap 9 (8-16) 02/03/18 08:00 BUN 11 mg/dL (7-18) 02/03/18 08:00 Creatinine 0.8 mg/dL (0.7-1.3) 02/03/18 08:00 Creat Clearance w eGFR > 60 (>60) 02/03/18 08:00 Random Glucose 100 mg/dL (74-106) 02/03/18 08:00 Calcium 8.6 mg/dL (8.5-10.1) 02/03/18 08:00 Total Bilirubin 0.7 mg/dL (0.2-1.0) D 02/03/18 08:00 AST 116 U/L (15-37) H D 02/03/18 08:00 ALT 61 U/L (12-78) 02/03/18 08:00 Alkaline Phosphatase 114 U/L (45-117) 02/03/18 08:00 Total Protein 6.6 g/dl (6.4-8.2) 02/03/18 08:00 Albumin 3.1 g/dl (3.4-5.0) L D 02/03/18 08:00 Urine Color Yellow 02/03/18 08:00 Urine Appearance Clear 02/03/18 08:00 Urine pH 6.0 (5.0-8.0) 02/03/18 08:00 Ur Specific [place] 1.021 (1.001-1.035) 02/03/18 08:00 Urine Protein Negative (NEGATIVE) 02/03/18 08:00 Urine Glucose (UA) Negative (NEGATIVE) 02/03/18 08:00 Urine Ketones Trace (NEGATIVE) H 02/03/18 08:00 Urine Blood Negative (NEGATIVE) 02/03/18 08:00 Urine Nitrite Negative (NEGATIVE) 02/03/18 08:00 Urine Bilirubin Negative (<2.0 mg/dL) 02/03/18 08:00 Urine Urobilinogen 4.0 e.u/dl mg/dL (0.2-1.0) 02/03/18 08:00 Ur Leukocyte Esterase Negative (NEGATIVE) 02/03/18 08:00 RPR Titer Nonreactive (NONREACTIVE) 02/03/18 08:00 labs reviewed Assessment: 02/03/18 22:25 HTN Withdrawal symptoms Plan: Clonidine 0.1mg tablet oral stat
[2018-02-04] MEDS: CEPHALEXIN MONOHYDRATE 500 MG CAPSULE (UD) PO SCH ×4 (05:47→23:18)
[2018-02-04] MEDS: METHADONE HCL 40 MG DISPERSABLE TABLET PO SCH (05:47)
[2018-02-04] MEDS: diazePAM 5 MG TABLET PO SCH ×3 (05:47→22:14)
[2018-02-04] MEDS: ACETAMINOPHEN 325 MG TABLET (FP) PO PRN ×3 (05:49→20:45)
[2018-02-04] MEDS: diazePAM 5 MG TABLET PO PRN ×3 (08:42→17:26)
[2018-02-04] MEDS: NICOTINE 14 MG/24 HOURS TOPICAL PATCH TD SCH (10:36)
[2018-02-04] MEDS: PRENATAL VITAMINS W/ FOLIC ACID TABLET (FP) PO SCH (10:36)
[2018-02-04] MEDS: ALBUTEROL SO4 18 GM HFA INHALER IH PRN ×2 (10:48→13:55)
--- NOTE | 2018-02-04 14:51 | CONSULT ---
[facility] Psychiatric Consult - Data Date of interview: 02/04/18 Admission source: Self-referred Identifying data: Patient is a 32 y/o male single, unemployed , homeless, father of 4 children Substance Abuse History: He came in for Detox of ETOH, cocaine, Heroin, Cocaine , Cigarettes, Methadone dependent. Refer to [facility] for more detailed drug history Medical History: Medical history is significant for bronchial asthma,sciatica, nephrolithiasis and a history of orthosurgery for fracture of right ankle (2014) . Psychiatric History: Patient prior psychistric admission, he was diagnosed with ADHD during his latency age, his mother has refused him to be medicated with psychostimulant Physical/Sexual Abuse/Trauma History: Patient denies history of abuse Mental Status Exam - Mental Status Exam Alert and Oriented to: Place, Person Cognitive Function: Grossly Intact Patient Appearance: Well Groomed Mood: Depressed, Nervous Affect: Appropriate Patient Behavior: Cooperative Speech Pattern: Clear Voice Loudness: Normal Thought Process: Intact Thought Disorder: Not Present Hallucinations: None Suicidal Ideation: None Homicidal Ideation: None Insight/Judgement: Poor Sleep: Well Appetite: Good Muscle strength/Tone: Normal Gait/Station: Normal Psychiatric Findings - Problem List ([place] 1, 2,3) (1) Asthma Current Visit: Yes Status: Chronic Qualifiers: Asthma complication type: unspecified (2) Cannabis dependence Current Visit: Yes Status: Acute (3) Cocaine dependence Current Visit: Yes Status: Acute Qualifiers: Substance use status: uncomplicated Qualified Code(s): F14.20 - Cocaine dependence, uncomplicated (4) HTN (hypertension) Current Visit: Yes Status: Chronic (5) Methadone maintenance therapy patient Current Visit: Yes Status: Chronic (6) Opioid dependence on agonist therapy Current Visit: Yes Status: Acute - Initial Treatment Plan Initial Treatment Plan: Continue in patient Detox treatment
--- NOTE | 2018-02-04 15:52 | PN ---
[facility] CIWA - CIWA Score Nausea/Vomitin Muscle Tremors: 3 Anxiety: 3 Agitation: 3 Paroxysmal Sweats: 3 Orientation: 0-Oriented Tacttile Disturbances: 1-Very Mild Itch/Numbness Auditory Disturbances: 0-None Visual Disturbances: 0-None Headache: 1-Very Mild CIWA-Ar Total Score: 17 [facility] Progress Note (SOAP) Subjective: Tremor, anxious, nauseous Objective: 02/04/18 15:51 Last Vital Signs Temp Pulse Resp BP Pulse Ox 97.7 F 58 L 16 131/82 02/04/18 09:36 02/04/18 09:36 02/04/18 09:36 02/04/18 09:36 Laboratory Tests 02/03/18 02/03/18 02/03/18 08:00 08:00 08:00 WBC 5.9 D RBC 3.99 L Hgb 13.2 D Hct 38.1 MCV 95.5 MCH 33.2 MCHC 34.7 RDW 13.6 Plt Count 233 MPV 8.7 Sodium 141 Potassium 4.2 Chloride 103 D Carbon Dioxide 29 Anion Gap 9 BUN 11 Creatinine 0.8 Creat Clearance w eGFR > 60 Random Glucose 100 Calcium 8.6 Total Bilirubin 0.7 D AST 116 H D ALT 61 Alkaline Phosphatase 114 Total Protein 6.6 Albumin 3.1 L D Urine Color Urine Appearance Urine pH Ur Specific [place] Urine Protein Urine Glucose (UA) Urine Ketones Urine Blood Urine Nitrite Urine Bilirubin Urine Urobilinogen Ur Leukocyte Esterase RPR Titer Nonreactive 02/03/18 08:00 WBC RBC Hgb Hct MCV MCH MCHC RDW Plt Count MPV Sodium Potassium Chloride Carbon Dioxide Anion Gap BUN Creatinine Creat Clearance w eGFR Random Glucose Calcium Total Bilirubin AST ALT Alkaline Phosphatase Total Protein Albumin Urine Color Yellow Urine Appearance Clear Urine pH 6.0 Ur Specific [place] 1.021 Urine Protein Negative Urine Glucose (UA) Negative Urine Ketones Trace H Urine Blood Negative Urine Nitrite Negative Urine Bilirubin Negative Urine Urobilinogen 4.0 e.u/dl Ur Leukocyte Esterase Negative RPR Titer Labs reviewed Assessment: 02/04/18 15:51 Withdrawal symptoms Plan: Continue detox Encouraged PO hydration
[2018-02-04] MEDS: IBUPROFEN 400 MG TABLET (FP) PO PRN (18:48)
[2018-02-04] MEDS: THIAMINE HCL 100 MG TABLET (FP) PO SCH (22:14)
[2018-02-04] MEDS: MELATONIN 5 MG TABLETS PO PRN (22:15)
[2018-02-05] MEDS: CEPHALEXIN MONOHYDRATE 500 MG CAPSULE (UD) PO SCH ×3 (05:45→17:12)
[2018-02-05] MEDS: METHADONE HCL 40 MG DISPERSABLE TABLET PO SCH (05:45)
[2018-02-05] MEDS: diazePAM 5 MG TABLET PO PRN ×4 (05:47→21:37)
[2018-02-05] MEDS: diazePAM 5 MG TABLET PO SCH ×2 (10:15→21:37)
[2018-02-05] MEDS: NICOTINE 14 MG/24 HOURS TOPICAL PATCH TD SCH (10:15)
[2018-02-05] MEDS: PRENATAL VITAMINS W/ FOLIC ACID TABLET (FP) PO SCH (10:15)
[2018-02-05] MEDS: IBUPROFEN 400 MG TABLET (FP) PO PRN ×2 (12:25→20:10)
--- NOTE | 2018-02-05 13:43 | PN ---
[facility] CIWA - CIWA Score Nausea/Vomitin-Mild Nausea/No Vomiting Muscle Tremors: 4-Moderate,w/Arms Extend Anxiety: 4-Mod. Anxious/Guarded Agitation: 4-Moderately Restless Paroxysmal Sweats: 1-Minimal Palms Moist Orientation: 0-Oriented Tacttile Disturbances: 0-None Auditory Disturbances: 0-None Visual Disturbances: 0-None Headache: 0-None Present CIWA-Ar Total Score: 14 S Progress Note (SOAP) Subjective: sweat tremor anxiety restlessness trouble sleep at night Objective: 02/05/18 13:42 Vital Signs Temperature 97.0 F L 02/05/18 10:13 Pulse Rate 66 02/05/18 10:13 Respiratory Rate 20 02/05/18 10:13 Blood Pressure 138/88 02/05/18 10:13 O2 Sat by Pulse Oximetry (%) Laboratory Last Values WBC 5.9 K/mm3 (4.0-10.0) D 02/03/18 08:00 RBC 3.99 M/mm3 (4.00-5.60) L 02/03/18 08:00 Hgb 13.2 GM/dL (11.7-16.9) D 02/03/18 08:00 Hct 38.1 % (35.4-49) 02/03/18 08:00 MCV 95.5 fl (80-96) 02/03/18 08:00 MCH 33.2 pg (25.7-33.7) 02/03/18 08:00 MCHC 34.7 g/dl (32.0-35.9) 02/03/18 08:00 RDW 13.6 % (11.9-15.9) 02/03/18 08:00 Plt Count 233 K/MM3 (134-434) 02/03/18 08:00 MPV 8.7 fl (7.5-11.1) 02/03/18 08:00 Sodium 141 mmol/L (136-145) 02/03/18 08:00 Potassium 4.2 mmol/L (3.5-5.1) 02/03/18 08:00 Chloride 103 mmol/L (98-107) D 02/03/18 08:00 Carbon Dioxide 29 mmol/L (21-32) 02/03/18 08:00 Anion Gap 9 (8-16) 02/03/18 08:00 BUN 11 mg/dL (7-18) 02/03/18 08:00 Creatinine 0.8 mg/dL (0.7-1.3) 02/03/18 08:00 Creat Clearance w eGFR > 60 (>60) 02/03/18 08:00 Random Glucose 100 mg/dL (74-106) 02/03/18 08:00 Calcium 8.6 mg/dL (8.5-10.1) 02/03/18 08:00 Total Bilirubin 0.7 mg/dL (0.2-1.0) D 02/03/18 08:00 AST 116 U/L (15-37) H D 02/03/18 08:00 ALT 61 U/L (12-78) 02/03/18 08:00 Alkaline Phosphatase 114 U/L (45-117) 02/03/18 08:00 Total Protein 6.6 g/dl (6.4-8.2) 02/03/18 08:00 Albumin 3.1 g/dl (3.4-5.0) L D 02/03/18 08:00 Urine Color Yellow 02/03/18 08:00 Urine Appearance Clear 02/03/18 08:00 Urine pH 6.0 (5.0-8.0) 02/03/18 08:00 Ur Specific [place] 1.021 (1.001-1.035) 02/03/18 08:00 Urine Protein Negative (NEGATIVE) 02/03/18 08:00 Urine Glucose (UA) Negative (NEGATIVE) 02/03/18 08:00 Urine Ketones Trace (NEGATIVE) H 02/03/18 08:00 Urine Blood Negative (NEGATIVE) 02/03/18 08:00 Urine Nitrite Negative (NEGATIVE) 02/03/18 08:00 Urine Bilirubin Negative (<2.0 mg/dL) 02/03/18 08:00 Urine Urobilinogen 4.0 e.u/dl mg/dL (0.2-1.0) 02/03/18 08:00 Ur Leukocyte Esterase Negative (NEGATIVE) 02/03/18 08:00 RPR Titer Nonreactive (NONREACTIVE) 02/03/18 08:00 lab noted Assessment: 02/05/18 13:42 withdrawal sx Plan: continue detox
[2018-02-05] MEDS: ALBUTEROL SO4 18 GM HFA INHALER IH PRN (20:11)
[2018-02-05] MEDS: THIAMINE HCL 100 MG TABLET (FP) PO SCH (21:37)
[2018-02-05] MEDS: MELATONIN 5 MG TABLETS PO PRN (21:39)
[2018-02-06] MEDS: CEPHALEXIN MONOHYDRATE 500 MG CAPSULE (UD) PO SCH ×2 (00:06→05:33)
[2018-02-06] MEDS: METHADONE HCL 40 MG DISPERSABLE TABLET PO SCH (05:33)
[2018-02-06] MEDS: IBUPROFEN 400 MG TABLET (FP) PO PRN (05:36)
[2018-02-06 06:14] VITALS: BP 149/83; PULSE 65; TEMP 97
--- NOTE | 2018-02-06 08:40 | DS ---
[facility] Detox Discharge Summary Admission Date: 02/03/18 Discharge Date: 02/06/18 - History Present History: Alcohol Dependence Additional Comments: 32 years old male admitted on 02/03/18 for alcohol withdrawal sx feeling better tolerated detox regimen well denies alcohol withdrawal sx patient is alert oriented x 3 no acute distress, wants to return home today and return to [facility] the next day for rehab patient is on methadone maintenance program 120 mg po daily, agrees to follow up with the methadone program for addiction and biopsychosocial services. - Physical Exam Results Vital Signs: Vital Signs Temperature 97.0 F L 02/06/18 06:00 Pulse Rate 65 02/06/18 06:00 Respiratory Rate 18 02/06/18 06:00 Blood Pressure 149/83 02/06/18 06:00 O2 Sat by Pulse Oximetry (%) Pertinent Admission Physical Exam Findings: withdrawal sx Vital Signs Temperature 97.0 F L 02/06/18 06:00 Pulse Rate 65 02/06/18 06:00 Respiratory Rate 18 02/06/18 06:00 Blood Pressure 149/83 02/06/18 06:00 O2 Sat by Pulse Oximetry (%) Laboratory Last Values WBC 5.9 K/mm3 (4.0-10.0) D 02/03/18 08:00 RBC 3.99 M/mm3 (4.00-5.60) L 02/03/18 08:00 Hgb 13.2 GM/dL (11.7-16.9) D 02/03/18 08:00 Hct 38.1 % (35.4-49) 02/03/18 08:00 MCV 95.5 fl (80-96) 02/03/18 08:00 MCH 33.2 pg (25.7-33.7) 02/03/18 08:00 MCHC 34.7 g/dl (32.0-35.9) 02/03/18 08:00 RDW 13.6 % (11.9-15.9) 02/03/18 08:00 Plt Count 233 K/MM3 (134-434) 02/03/18 08:00 MPV 8.7 fl (7.5-11.1) 02/03/18 08:00 Sodium 141 mmol/L (136-145) 02/03/18 08:00 Potassium 4.2 mmol/L (3.5-5.1) 02/03/18 08:00 Chloride 103 mmol/L (98-107) D 02/03/18 08:00 Carbon Dioxide 29 mmol/L (21-32) 02/03/18 08:00 Anion Gap 9 (8-16) 02/03/18 08:00 BUN 11 mg/dL (7-18) 02/03/18 08:00 Creatinine 0.8 mg/dL (0.7-1.3) 02/03/18 08:00 Creat Clearance w eGFR > 60 (>60) 02/03/18 08:00 Random Glucose 100 mg/dL (74-106) 02/03/18 08:00 Calcium 8.6 mg/dL (8.5-10.1) 02/03/18 08:00 Total Bilirubin 0.7 mg/dL (0.2-1.0) D 02/03/18 08:00 AST 116 U/L (15-37) H D 02/03/18 08:00 ALT 61 U/L (12-78) 02/03/18 08:00 Alkaline Phosphatase 114 U/L (45-117) 02/03/18 08:00 Total Protein 6.6 g/dl (6.4-8.2) 02/03/18 08:00 Albumin 3.1 g/dl (3.4-5.0) L D 02/03/18 08:00 Urine Color Yellow 02/03/18 08:00 Urine Appearance Clear 02/03/18 08:00 Urine pH 6.0 (5.0-8.0) 02/03/18 08:00 Ur Specific [place] 1.021 (1.001-1.035) 02/03/18 08:00 Urine Protein Negative (NEGATIVE) 02/03/18 08:00 Urine Glucose (UA) Negative (NEGATIVE) 02/03/18 08:00 Urine Ketones Trace (NEGATIVE) H 02/03/18 08:00 Urine Blood Negative (NEGATIVE) 02/03/18 08:00 Urine Nitrite Negative (NEGATIVE) 02/03/18 08:00 Urine Bilirubin Negative (<2.0 mg/dL) 02/03/18 08:00 Urine Urobilinogen 4.0 e.u/dl mg/dL (0.2-1.0) 02/03/18 08:00 Ur Leukocyte Esterase Negative (NEGATIVE) 02/03/18 08:00 RPR Titer Nonreactive (NONREACTIVE) 02/03/18 08:00 lab noted - Treatment Hospital Course: Detox Protocol Followed, Detoxed Safely, Responded well, Discharged Condition Good, Rehab Referral Accepted Patient has Accepted a Rehab Referral to: [facility] - Medication Discharge Medications: Ambulatory Orders Methadone [Dolophine -] 120 mg PO DAILY 02/05/18 - Diagnosis (1) Asthma Current Visit: Yes Status: Chronic Qualifiers: Asthma severity: mild Asthma persistence: intermittent Asthma complication type: with status asthmaticus Qualified Code(s): J45.22 - Mild intermittent asthma with status asthmaticus (2) HTN (hypertension) Current Visit: Yes Status: Chronic Qualifiers: Hypertension type: essential hypertension Qualified Code(s): I10 - Essential (primary) hypertension (3) Methadone maintenance therapy patient Current Visit: Yes Status: Chronic - AMA Did Patient Leave Against Medical Advice: No
[2018-02-07] MEDS ORDERED: diazePAM 5 MG TABLET PO SCH (10:00)
== END 2018-02-06 09:20 | disposition home or self-care (01) | DRG 773 ==
LOC: YASAS 21:28 → Y6N 02-03 00:14
PROVIDERS: ADMIT Internal Medicine; ATTEND Internal Medicine
PROC: HZ2ZZZZ Detoxification Services for Substance Abuse Treatment (ICD-10-PCS; principal; 2018-02-03)
DX: F10.230 Alcohol dependence with withdrawal, uncomplicated (principal); F11.20 Opioid dependence, uncomplicated; F13.230 Sedative, hypnotic or anxiolytic dependence with withdrawal, uncomplicated; F14.20 Cocaine dependence, uncomplicated; F12.20 Cannabis dependence, uncomplicated; F17.210 Nicotine dependence, cigarettes, uncomplicated; F41.8 Other specified anxiety disorders; I10 Essential (primary) hypertension; J45.22 Mild intermittent asthma with status asthmaticus; G47.00 Insomnia, unspecified
CPT/HCPCS: 36415; 80053; 81003; 85027; 86593; 93005; 93010; J0735

== ENCOUNTER 2018-05-15 15:54 | Inpatient (IN) | payer OTHER ==
[2018-05-15] MEDS ORDERED: ALBUTEROL SO4 8 GM HFA INHALER IH PRN (17:23)
[2018-05-15] MEDS ORDERED: MAG HYDROX/AL HYDROX/SIMETH 30 ML UNIT-DOSE CUP PO PRN (17:23)
[2018-05-15] MEDS ORDERED: MAGNESIUM CITRATE 300 ML BOTTLE PO PRN (17:23)
[2018-05-15] MEDS ORDERED: P-EPHED 60MG/TRIPROLIDI 2.5MG TABLET PO PRN (17:23)
[2018-05-15] MEDS ORDERED: ACETAMINOPHEN 325 MG TABLET (FP) PO PRN (17:23)
[2018-05-15] MEDS ORDERED: MENTHOL/PHENOL 1 EACH UD MM PRN (17:23)
[2018-05-15] MEDS ORDERED: MAGNESIUM HYDROX 2400MG/30ML ORAL SUSPENSION 30 ML CUP PO PRN (17:23)
[2018-05-15] MEDS ORDERED: NICOTINE POLACRILEX 2 MG GUM BUC PRN (17:25)
[2018-05-15] MEDS: hydrOXYzine PAMOATE 50 MG CAPSULE (FP) PO PRN ×2 (17:34→21:35)
[2018-05-15] MEDS: LOPERAMIDE HCL 2 MG CAPSULE PO PRN (18:05)
[2018-05-15] MEDS: POTASSIUM CHLORIDE TABS 20 MEQ TABLET.ER (FP) PO SCH (18:05)
[2018-05-15] MEDS: THIAMINE HCL 100 MG TABLET (FP) PO SCH (21:15)
[2018-05-15] MEDS: CYCLOBENZAPRINE HCL 10 MG TABLET (FP) PO PRN (21:16)
--- NOTE | 2018-05-15 21:20 | HP ---
ERNESTO CRAWFORD Rehab Assess/Revision - Admission History Admitted to Rehab from: [address] [place] Date of Admission to Rehab: 05/15/18 - Findings Detox History & Physical reviewed: Yes Concur with findings: Yes Inpatient Rehab Admission - Initial Determination Are CD services needed?: Yes Free of communicable disease: Yes Not in need of hospitalization: Yes - Rehab Admission Criteria Previous failed treatment: Yes Poor recovery environment: Yes Comorbidities: Yes Lacks judgement: Yes Patient is meeting Inpatient Rehab admission criteria:: Yes
--- NOTE | 2018-05-15 21:22 | PN ---
S Progress Note Note: Patient transferred from 6N to 5N . Patient was started on amoxicillin PO TID for dental abcess on 05/12/18 ordered continue as previously prescribed. continue to monitor
--- NOTE | 2018-05-15 21:31 | PN ---
[facility] Progress Note Note: Psychiatry Attending's on-call note : Called to enter order for seroquel. Patient is requesting 500 mg/hs. Mr Rodriguez just got transferred from [address] [place] [address]. Chart reviewed. NO evidence of treatment with seroquel. Issue to be addressed in AM by covering psychiatrist.
[2018-05-15] MEDS: AMOXICILLIN 500 MG CAPSULE (FP) PO SCH (21:35)
[2018-05-16] MEDS: hydrOXYzine PAMOATE 50 MG CAPSULE (FP) PO PRN ×5 (06:14→21:48)
[2018-05-16] MEDS: METHADONE HCL 40 MG DISPERSABLE TABLET PO SCH (06:15)
[2018-05-16] MEDS: LOPERAMIDE HCL 2 MG CAPSULE PO PRN ×2 (06:15→13:35)
[2018-05-16] MEDS: AMOXICILLIN 500 MG CAPSULE (FP) PO SCH ×3 (06:15→21:06)
[2018-05-16] MEDS: amLODIPine BESYLATE 10 MG TABLET (FP) PO SCH (09:44)
[2018-05-16] MEDS: POTASSIUM CHLORIDE TABS 20 MEQ TABLET.ER (FP) PO SCH (09:44)
[2018-05-16] MEDS: PRENATAL VITAMINS W/ FOLIC ACID TABLET (FP) PO SCH (09:44)
[2018-05-16] MEDS: HYDROCHLOROTHIAZIDE 25 MG TABLET (FP) PO SCH (09:44)
[2018-05-16] MEDS: NICOTINE 14 MG/24 HOURS TOPICAL PATCH TD SCH (09:44)
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
--- NOTE | 2018-05-16 12:48 | PN ---
S Progress Note Note: Vital Signs Temperature 97.0 F L 05/16/18 06:42 Pulse Rate 106 H 05/16/18 10:00 Respiratory Rate 18 05/16/18 06:42 Blood Pressure 126/85 05/16/18 10:00 O2 Sat by Pulse Oximetry (%) Laboratory Last Values Potassium 3.9 mmol/L (3.5-5.1) D 05/16/18 07:00 c/o of upset stomach relief with gingerale Patient Aox3 no distress, obese no adventitious breath sounds full ROM ambulating in the unit Plan: encourage fluids jack gisella bid d/c k-dur continue to monitor
--- NOTE | 2018-05-16 13:51 | PN ---
S Progress Note Note: Vital Signs Temperature 97.0 F L 05/16/18 06:42 Pulse Rate 106 H 05/16/18 10:00 Respiratory Rate 18 05/16/18 06:42 Blood Pressure 126/85 05/16/18 10:00 O2 Sat by Pulse Oximetry (%) Laboratory Last Values Potassium 3.9 mmol/L (3.5-5.1) D 05/16/18 07:00 c/o of upset stomach relief with gingerale Patient Aox3 no distress, obese no adventitious breath sounds full ROM ambulating int he unit Plan: encourage fluids jack gisella bid
[2018-05-16] MEDS: THIAMINE HCL 100 MG TABLET (FP) PO SCH (21:06)
[2018-05-16] MEDS: SUVOREXANT 10 MG TABLET PO PRN (21:07)
[2018-05-16] MEDS: MELATONIN 5 MG TABLETS PO PRN (21:48)
[2018-05-17] MEDS: IBUPROFEN 400 MG TABLET (FP) PO PRN ×2 (03:34→09:52)
[2018-05-17] MEDS: hydrOXYzine PAMOATE 50 MG CAPSULE (FP) PO PRN ×5 (03:53→21:04)
[2018-05-17] MEDS: METHADONE HCL 40 MG DISPERSABLE TABLET PO SCH (06:09)
[2018-05-17] MEDS: AMOXICILLIN 500 MG CAPSULE (FP) PO SCH ×3 (06:10→21:03)
[2018-05-17] MEDS: HYDROCHLOROTHIAZIDE 25 MG TABLET (FP) PO SCH (09:52)
[2018-05-17] MEDS: PRENATAL VITAMINS W/ FOLIC ACID TABLET (FP) PO SCH (09:52)
[2018-05-17] MEDS: NICOTINE 14 MG/24 HOURS TOPICAL PATCH TD SCH (09:52)
[2018-05-17] MEDS: amLODIPine BESYLATE 10 MG TABLET (FP) PO SCH (09:52)
[2018-05-17] MEDS: LOPERAMIDE HCL 2 MG CAPSULE PO PRN (09:53)
[2018-05-17] MEDS: guaiFENesin/D-METHORPHAN HB 10 ML UNIT-DOSE CUPS PO PRN ×2 (13:01→19:35)
[2018-05-17] MEDS: CYCLOBENZAPRINE HCL 10 MG TABLET (FP) PO PRN ×2 (17:15→21:04)
[2018-05-17] MEDS: THIAMINE HCL 100 MG TABLET (FP) PO SCH (21:04)
[2018-05-17] MEDS: SUVOREXANT 10 MG TABLET PO PRN (21:05)
[2018-05-18] MEDS: hydrOXYzine PAMOATE 50 MG CAPSULE (FP) PO PRN ×5 (02:28→19:56)
[2018-05-18] MEDS: guaiFENesin/D-METHORPHAN HB 10 ML UNIT-DOSE CUPS PO PRN ×2 (06:21→19:56)
[2018-05-18] MEDS: AMOXICILLIN 500 MG CAPSULE (FP) PO SCH ×2 (06:22→13:15)
[2018-05-18] MEDS: METHADONE HCL 40 MG DISPERSABLE TABLET PO SCH (06:22)
[2018-05-18] MEDS: HYDROCHLOROTHIAZIDE 25 MG TABLET (FP) PO SCH (09:44)
[2018-05-18] MEDS: amLODIPine BESYLATE 10 MG TABLET (FP) PO SCH (09:44)
[2018-05-18] MEDS: PRENATAL VITAMINS W/ FOLIC ACID TABLET (FP) PO SCH (09:44)
[2018-05-18] MEDS: NICOTINE 14 MG/24 HOURS TOPICAL PATCH TD SCH (09:47)
[2018-05-18] MEDS: LOPERAMIDE HCL 2 MG CAPSULE PO PRN (13:16)
--- NOTE | 2018-05-18 13:29 | PN ---
S Progress Note Note: sorethroat,running nose,coughing,on amoxicillin acute bronchitis d/c amocicillin zithromax 500 mgs po now then 250 mgs po daily for 3 ore days
[2018-05-18] MEDS ORDERED: AZITHROMYCIN 250 MG TABLET PO ONE (14:00)
[2018-05-18] MEDS: CYCLOBENZAPRINE HCL 10 MG TABLET (FP) PO PRN (19:57)
[2018-05-18] MEDS: THIAMINE HCL 100 MG TABLET (FP) PO SCH (21:01)
[2018-05-18] MEDS: SUVOREXANT 10 MG TABLET PO PRN (21:03)
[2018-05-18] MEDS: IBUPROFEN 400 MG TABLET (FP) PO PRN (21:03)
[2018-05-18] MEDS: MELATONIN 5 MG TABLETS PO PRN (22:52)
[2018-05-19] MEDS: hydrOXYzine PAMOATE 50 MG CAPSULE (FP) PO PRN ×4 (03:42→18:55)
[2018-05-19] MEDS: guaiFENesin/D-METHORPHAN HB 10 ML UNIT-DOSE CUPS PO PRN ×3 (03:42→18:55)
[2018-05-19] MEDS: METHADONE HCL 40 MG DISPERSABLE TABLET PO SCH (06:22)
[2018-05-19] MEDS: CYCLOBENZAPRINE HCL 10 MG TABLET (FP) PO PRN ×3 (06:24→18:55)
[2018-05-19] MEDS: HYDROCHLOROTHIAZIDE 25 MG TABLET (FP) PO SCH (09:39)
[2018-05-19] MEDS: amLODIPine BESYLATE 10 MG TABLET (FP) PO SCH (09:39)
[2018-05-19] MEDS: PRENATAL VITAMINS W/ FOLIC ACID TABLET (FP) PO SCH (09:39)
[2018-05-19] MEDS: NICOTINE 14 MG/24 HOURS TOPICAL PATCH TD SCH (09:39)
[2018-05-19] MEDS: AZITHROMYCIN 250 MG TABLET PO SCH (09:40)
--- NOTE | 2018-05-19 18:46 | PN ---
S Progress Note Note: Psychiatry Attending's on-call note : Contacted by nurse for renewal of belsomra. Chart reviewed.Previous order is confirmed. Intervention : Belsomra 10 mg po hs prn. Renewed.
[2018-05-19] MEDS: SUVOREXANT 10 MG TABLET PO PRN (21:06)
[2018-05-19] MEDS: THIAMINE HCL 100 MG TABLET (FP) PO SCH (21:06)
[2018-05-19] MEDS: MELATONIN 5 MG TABLETS PO PRN (21:47)
[2018-05-20] MEDS: hydrOXYzine PAMOATE 50 MG CAPSULE (FP) PO PRN ×5 (00:51→21:47)
[2018-05-20] MEDS: CYCLOBENZAPRINE HCL 10 MG TABLET (FP) PO PRN ×3 (03:52→21:03)
[2018-05-20] MEDS: METHADONE HCL 40 MG DISPERSABLE TABLET PO SCH (05:59)
[2018-05-20] MEDS: NICOTINE 14 MG/24 HOURS TOPICAL PATCH TD SCH (09:37)
[2018-05-20] MEDS: HYDROCHLOROTHIAZIDE 25 MG TABLET (FP) PO SCH (09:37)
[2018-05-20] MEDS: PRENATAL VITAMINS W/ FOLIC ACID TABLET (FP) PO SCH (09:37)
[2018-05-20] MEDS: amLODIPine BESYLATE 10 MG TABLET (FP) PO SCH (09:37)
[2018-05-20] MEDS: AZITHROMYCIN 250 MG TABLET PO SCH (09:38)
[2018-05-20] MEDS: guaiFENesin/D-METHORPHAN HB 10 ML UNIT-DOSE CUPS PO PRN (13:39)
[2018-05-20] MEDS: THIAMINE HCL 100 MG TABLET (FP) PO SCH (21:02)
[2018-05-20] MEDS: MELATONIN 5 MG TABLETS PO PRN (21:02)
[2018-05-20] MEDS: SUVOREXANT 10 MG TABLET PO PRN (21:03)
[2018-05-21] MEDS: hydrOXYzine PAMOATE 50 MG CAPSULE (FP) PO PRN ×5 (02:03→22:17)
[2018-05-21] MEDS: guaiFENesin/D-METHORPHAN HB 10 ML UNIT-DOSE CUPS PO PRN ×2 (02:03→09:29)
[2018-05-21] MEDS: METHADONE HCL 40 MG DISPERSABLE TABLET PO SCH (06:53)
[2018-05-21] MEDS: CYCLOBENZAPRINE HCL 10 MG TABLET (FP) PO PRN ×2 (06:56→16:43)
[2018-05-21] MEDS ORDERED: PT OWN MED DRAWER 7, Y5N ONE (08:34)
[2018-05-21] MEDS: AZITHROMYCIN 250 MG TABLET PO SCH (09:27)
[2018-05-21] MEDS: amLODIPine BESYLATE 10 MG TABLET (FP) PO SCH (09:27)
[2018-05-21] MEDS: HYDROCHLOROTHIAZIDE 25 MG TABLET (FP) PO SCH (09:27)
[2018-05-21] MEDS: PRENATAL VITAMINS W/ FOLIC ACID TABLET (FP) PO SCH (09:28)
[2018-05-21] MEDS: NICOTINE 14 MG/24 HOURS TOPICAL PATCH TD SCH (09:29)
[2018-05-21] MEDS: MELATONIN 5 MG TABLETS PO PRN (21:09)
[2018-05-21] MEDS: SUVOREXANT 10 MG TABLET PO PRN (21:09)
[2018-05-21] MEDS: THIAMINE HCL 100 MG TABLET (FP) PO SCH (21:09)
[2018-05-22] MEDS ORDERED: METHADONE HCL 40 MG DISPERSABLE TABLET PO SCH (06:00)
[2018-05-22] MEDS: hydrOXYzine PAMOATE 50 MG CAPSULE (FP) PO PRN (06:18)
[2018-05-22] MEDS: CYCLOBENZAPRINE HCL 10 MG TABLET (FP) PO PRN (06:18)
[2018-05-22 06:43] VITALS: TEMP 97.9
[2018-05-22] MEDS: AZITHROMYCIN 250 MG TABLET PO SCH (09:26)
[2018-05-22] MEDS: HYDROCHLOROTHIAZIDE 25 MG TABLET (FP) PO SCH (09:26)
[2018-05-22] MEDS: NICOTINE 14 MG/24 HOURS TOPICAL PATCH TD SCH (09:26)
[2018-05-22] MEDS: PRENATAL VITAMINS W/ FOLIC ACID TABLET (FP) PO SCH (09:26)
[2018-05-22] MEDS: amLODIPine BESYLATE 10 MG TABLET (FP) PO SCH (09:26)
[2018-05-22 11:15] VITALS: BP 132/86; PULSE 93
[2018-05-22] MEDS: guaiFENesin/D-METHORPHAN HB 10 ML UNIT-DOSE CUPS PO PRN (12:47)
--- NOTE | 2018-05-22 13:56 | PN ---
Psychiatric Progress Note Vital Signs: Vital Signs Period Temp Pulse Resp BP Sys/Kim Pulse Ox Last 24 Hr 97.9 F 87-93 18-18 132-132/81-86 Date of Session: 05/22/18 Chief Complaint:: "Discharge" HPI: Patient was admitted to for alcohol dependence. ROS: Asthma, hypertension Current Medications: Active Medications Generic Name Dose Route Start Last Admin Trade Name Freq PRN Reason Stop Dose Admin Al Hydroxide/Mg Hydroxide 30 ml 05/15/18 17:23 Mylanta Oral Suspension - PO Q6H PRN DYSPEPSIA Albuterol Sulfate 2 puff 05/15/18 17:23 05/16/18 11:22 Ventolin Hfa Inhaler - IH 2 puff Q4H PRN Administration SHORT OF BREATH/WHEEZING Amlodipine Besylate 10 mg 05/16/18 10:00 05/22/18 09:26 Norvasc - PO 10 mg DAILY AUDIE Administration Cyclobenzaprine HCl 10 mg 05/15/18 18:09 05/22/18 06:18 Flexeril - PO 10 mg TID PRN Administration MUSCLE SPASMS Eucalyptus/Menthol/Phenol/Sorbitol 1 each 05/15/18 17:23 Cepastat Lozenge - MM Q4H PRN SORE THROAT Guaifenesin 10 ml 05/15/18 17:23 05/22/18 12:47 Robitussin Dm - PO 10 ml Q6H PRN Administration COUGH Hydrochlorothiazide 25 mg 05/16/18 10:00 05/22/18 09:26 Hctz - PO 25 mg DAILY AUDIE Administration Hydroxyzine Pamoate 50 mg 05/15/18 17:23 05/22/18 06:18 Vistaril - PO 50 mg Q4H PRN Administration AGITATION Ibuprofen 400 mg 05/15/18 17:23 05/18/18 21:03 Motrin - PO 400 mg Q6H PRN Administration Pain Level 4-6 Loperamide HCl 4 mg 05/15/18 17:23 05/18/18 13:16 Imodium - PO 4 mg Q6H PRN Administration DIARRHEA Magnesium Citrate 300 ml 05/15/18 17:23 Citroma - PO Q48H PRN CONSTIPATION Magnesium Hydroxide 30 ml 05/15/18 17:23 Milk Of Magnesia - PO DAILY PRN CONSTIPATION Melatonin 5 mg 05/15/18 22:00 05/21/18 21:09 Melatonin PO 5 mg HS PRN Administration INSOMNIA Methadone HCl 120 mg 05/22/18 06:00 05/22/18 06:17 Dolophine - PO 05/28/18 05:59 120 mg DAILY@0600 AUDIE Administration Nicotine 14 mg 05/16/18 10:00 05/22/18 09:26 Nicoderm Patch - TD 14 mg DAILY AUDIE Administration Nicotine Polacrilex 2 mg 05/15/18 17:25 05/21/18 12:54 Nicorette Gum - BUC 2 mg Q2H PRN Administration NICOTINE REPLACEMENT RX Multivit/Folic Acid/Iron 1 tab 05/16/18 10:00 05/22/18 09:26 Vitamins (Sjr) - PO 1 tab DAILY AUDIE Administration Pseudoephedrine/Triprolidine 1 combo 05/15/18 17:23 Actifed - PO TID PRN NASAL CONGESTION Suvorexant 10 mg 05/19/18 22:00 05/21/18 21:09 Belsomra PO 10 mg HS PRN Administration INSOMNIA Thiamine HCl 100 mg 05/15/18 22:00 05/21/18 21:09 Vitamin B1 - PO 100 mg HS AUDIE Administration Medication(s) Change(s): No. Current Side Effect: No Lab tests ordered: No Lab tests reviewed: Yes Provider note:: Patient requesting early discharge on 05/22/18. Patient able to complete seven days of inpatient rehabilitation. Pt has met his treatment goals and will continue to address other issues at the [facility] outpatient program in [place]. Pt. will follow up with the outpatient psychiatrist (Dr. Orourke) in [facility]. Pt. requesting to leave early due to needing to attend work or he will lose his apartment. Pt. was not accepting psychotropic medications while in rehab. Pt. is stable for discharge on 05/22/18. Total face to face time:: 35 Mental Status Exam - Mental Status Exam Alert and Oriented to: Time, Place, Person Cognitive Function: Good Patient Appearance: Well Groomed Mood: Hopeful Affect: Appropriate Patient Behavior: Appropriate, Cooperative Speech Pattern: Clear, Appropriate Voice Loudness: Normal Thought Process: Intact, Goal Oriented Thought Disorder: Not Present Hallucinations: Denies Suicidal Ideation: Denies Homicidal Ideation: Denies Insight/Judgement: Good Sleep: Well Appetite: Good Muscle strength/Tone: Normal Gait/Station: Normal Psychiatric Treatment Plan - Problem List (1) Alcohol dependence Current Visit: Yes (2) Substance induced mood disorder Current Visit: Yes (3) Opioid dependence on agonist therapy Current Visit: Yes (4) Insomnia Current Visit: Yes Qualifiers: Insomnia type: unspecified Qualified Code(s): G47.00 - Insomnia, unspecified
--- NOTE | 2018-05-22 14:13 | PN ---
[facility] Progress Note Note: Vital Signs Temperature 97.9 F 05/22/18 06:42 Pulse Rate 93 H 05/22/18 11:12 Respiratory Rate 18 05/22/18 06:42 Blood Pressure 132/86 05/22/18 11:12 O2 Sat by Pulse Oximetry (%) Patient medically stable. Patient completes tis program today. Patient to follow up with primary care provider 1 -2 weeks and follow up with referral to [facility] outpatient program in [place].
== END 2018-05-22 14:28 | disposition home or self-care (01) | DRG 772 ==
LOC: YASAS 15:54 → Y5N 15:55
PROVIDERS: ADMIT Psychiatry & Neurology Psychiatry; ATTEND Psychiatry & Neurology Psychiatry
PROC: HZ42ZZZ Group Counseling for Substance Abuse Treatment, Cognitive-Behavioral (ICD-10-PCS; principal; 2018-05-15)
DX: F10.20 Alcohol dependence, uncomplicated (principal); F11.20 Opioid dependence, uncomplicated; F19.24 Other psychoactive substance dependence with psychoactive substance-induced mood disorder; G47.00 Insomnia, unspecified; J20.9 Acute bronchitis, unspecified
CPT/HCPCS: 36415; 84132

== ENCOUNTER 2018-06-03 14:57 | Inpatient (IN) | payer OTHER ==
[2018-06-03 15:43] VITALS: BMI 33.8
[2018-06-03] MEDS ORDERED: PANTOPRAZOLE SODIUM 40 MG VIAL IVPUSH ONE (15:43)
[2018-06-03] MEDS ORDERED: ONDANSETRON 4 MG/2 ML VIAL IVPUSH ONE (15:44)
[2018-06-03] MEDS ORDERED: SODIUM CHLORIDE 0.9% 500 ML INFUS.BAG IV ONE (15:47)
[2018-06-03 15:55] LABS: HEMATOCRIT 49.1 % (35.4-49); HEMOGLOBIN 16.6 GM/dL (11.7-16.9); MCH 31.3 pg (25.7-33.7); MCHC 33.7 g/dl (32.0-35.9); MEAN CELL VOLUME 92.8 fl (80-96); MEAN PLT VOLUME 8.1 fl (7.5-11.1); PLATELET COUNT 326 K/MM3 (134-434); RDW 14.1 % (11.9-15.9); WHITE BLOOD COUNT 18.9 K/mm3 (4.0-10.0)
--- NOTE | 2018-06-03 16:04 | PDOC ---
Attending Attestation - HPI HPI: 06/03/18 16:07 32 Y/O M SAMANTHA w/ pmh of degenerative disc disease, ETOH dependence and opioid dependence on methadone use presents for evaluation s/p witnessed fall fall from chair at [facility], +hit head, and alcohol intoxication. Pt reports moderate abdominal pain. Patient was sent by Dr. Mendenhall for a head CT s/ p fall. Patient was intoxicated at [facility] and fell from a chair while waiting to be admitted to a detox program. - Physicial Exam PE: (+)In mild distress secondary to intoxication and pain. Slurring speech, moaning and groaning. Eyes closed, poorly cooperative. No nystagmus. Malodorous with alcohol on breath. RRR. Lungs clear, normal respirations. No chest wall tenderness. No c-spine or midline back tenderness. Distended and soft, diffusely tender. LANTIGUA x4, nonfocal exam. Normal genitalia, no scrotal or testicular tenderness/swelling. <Ozzie Acevedo - Last Filed: 06/03/18 18:21> - Resident Resident Name: Celso Becker - ED Attending Attestation I have performed the following: I have examined & evaluated the patient, The case was reviewed & discussed with the resident, I agree w/resident's findings & plan - Medical Decision Making 06/03/18 16:03 32 Y/O M SAMANTHA w/ pmh of degenerative disc disease, ETOH dependence and opioid dependence on methadone use presents for evaluation s/p witnessed fall fall from chair at [facility], +hit head, and alcohol intoxication, drinking "lots of liquor." beginning yesterday, diffuse abdominal pain, n/v. DDx. drug intox, alcohol intox, withdrawal, opioid dependence. pancreatitis, hepatitis, tylenol/salicylate intox/OD, toxic alcohol ingestion. intra abdominal injury. C spine injury, Intracranial bleed/head injury. Vitals wnl. limitations with exam and history due to acute alcohol intoxication clinically. no other external signs of injury or trauma, unable to clear so will need CT imaging of head, C spine (cannot clear with nexus), CT a/p to eval for intra abdominal pathology. alcohol intoxication confirmed with ETOH in 400s, thus limiting much of exam. labs and lytes remarkable for WBC ct of 18.9K, +transaminitis in 200s, ALP elevation and Lipase in 3800s, c/w acute pancreatitis, likely from alcohol. tylenol/salicylate levels negative. toxic alcohol panel pending, hepatitis panel pending. given Protonix and zofran. ketamine low dose for analgesia, given relative contraindication (intoxicated, liver dysfunction) for other forms of analgesia IVF with LR, placed on monitor for close observation. keeping NPO, bowel rest CT head wet read neg for bleed, CT a/p on my read with fat stranding around proximal small intestine and pancreas. Bedside biliary pocus exam for abdominal pain, no evidence of cholelithiasis, no s/s cholecystitis (neg sonographic murphys, no pericholecystitic fluid or edema). defer to inpatient team for further imaging if necessary dispo: admit to hospitalist for medical management, bowel rest, hydration, management of Acute Pancreatitis and alcohol intoxication, risk of alcohol withdrawal as well. 06/03/18 18:28 <Judith Hernandez - Last Filed: 06/03/18 18:29> Attestations - Attestations Documentation prepared by Ozzie Acevedo, acting as medical record transcriber for Judith Hernandez MD. <Ozzie Acevedo - Last Filed: 06/03/18 18:21> - Attestations Physician Attestation: 06/03/18 18:08 I, Judith Hernandez MD, attest that this document has been prepared under my direction and personally reviewed by me in its entirety. I further attest, that it accurately reflects all work, treatment, procedures and medical decision -making performed by me. <Judith Hernandez - Last Filed: 06/03/18 18:29>
[2018-06-03] MEDS ORDERED: ONDANSETRON 4 MG/2 ML VIAL ONE (16:06)
[2018-06-03] MEDS ORDERED: PANTOPRAZOLE SODIUM 40 MG VIAL ONE (16:06)
--- NOTE | 2018-06-03 16:21 | PDOC ---
History of Present Illness <Judith Hernandez Jeseniajuan j - Last Filed: 06/03/18 18:21> - General History Source: Patient Exam Limitations: Intoxication - History of Present Illness Initial Comments: 32 y/o male presenting to [facility] ER via ambulance as transfer from [facility]. Pre- arrival notification provided by Joyce Mendenhall from admissions, who reports pt fell from chair while waiting for admission. Subsequently, the pt began to complain of abdominal pain. Vitals: 151/103 HR 92. On arrival, interview technically limited as pt likely intoxicated. Endorses drinking liquor but will not quantify amount. Denies using other substances. Moaning and complaining but not localizing abdominal pain. PCP: None Medical Hx: Denies medical history. Surgical Hx: Denies surgical history. <Celso Becker - Last Filed: 06/03/18 19:25> - General Chief Complaint: Injury Stated Complaint: INTOX Time Seen by Provider: 06/03/18 15:14 Past History <HernandezJudith Arnie - Last Filed: 06/03/18 18:21> - Past Medical History Asthma: Yes Cancer: No Cardiac Disorders: No CVA: No COPD: No CHF: No Diabetes: No GI Disorders: No Disorders: No HTN: Yes Hypercholesterolemia: No Kidney Stones: Yes (2011) Liver Disease: No Seizures: No Thyroid Disease: No - Surgical History Abdominal Surgery: No Appendectomy: No Cardiac Surgery: No Cholecystectomy: No Lung Surgery: No Neurologic Surgery: No Orthopedic Surgery: Yes (FOR FRACTURED RT. ANKLE BONES IN 2015) - Reproductive History Testicular Surgery: No - Immunization History Immunization Up to Date: Yes - Suicide/Smoking/Psychosocial Hx Smoking History: Never smoked Have you smoked in the past 12 months: Yes Number of Cigarettes Smoked Daily: 3 Information on smoking cessation initiated: No 'Breaking Loose' booklet given: 05/12/18 Hx Alcohol Use: Yes Drug/Substance Use Hx: Yes (on Methadone) Substance Use Type: Cocaine Hx Substance Use Treatment: No <Celso Becker - Last Filed: 06/03/18 19:25> - Past Medical History Allergies/Adverse Reactions: Allergies Allergy/AdvReac Type Severity Reaction Status Date / Time No Known Allergies Allergy Verified 06/03/18 15:29 Home Medications: Ambulatory Orders Methadone [Dolophine -] 120 mg PO DAILY 02/05/18 Albuterol Sulfate Inhaler - [Ventolin HFA Inhaler -] 2 puff IH Q4H PRN #1 inhaler 04/03/18 Hydrochlorothiazide [Hctz -] 25 mg PO DAILY #14 tablet 04/03/18 Amlodipine Besylate [Norvasc -] 10 mg PO DAILY tablet 05/15/18 Amoxicillin - [Amoxicillin 500mg Capsule -] 500 mg PO TID #0 capsule 05/15/18 Potassium Chloride [K-Dur -] 20 meq PO BID #0 tablet.er 05/15/18 Albuterol Sulfate Inhaler - [Ventolin HFA Inhaler -] 2 puff IH Q4H PRN #1 inhaler 05/22/18 Amlodipine Besylate [Norvasc -] 10 mg PO DAILY #30 tablet 05/22/18 Hydrochlorothiazide [Hctz -] 25 mg PO DAILY #30 tablet 05/22/18 Trauma Specific PMHX - Complaint Specific PMHX Arthritis: No <Celso Becker - Last Filed: 06/03/18 19:25> Review of Systems - Review of Systems Able to Perform ROS?: No Comments:: Pt intoxicated. <Celso Becker - Last Filed: 06/03/18 19:25> *Physical Exam - Vital Signs Last Vital Signs Temp Pulse Resp BP Pulse Ox 98.0 F 94 H 17 165/106 97 06/03/18 15:34 06/03/18 15:34 06/03/18 15:34 06/03/18 15:34 06/03/18 17:55 <Judith Hernandez - Last Filed: 06/03/18 18:21> - Vital Signs Last Vital Signs Temp Pulse Resp BP Pulse Ox 98.0 F 94 H 17 165/106 98 06/03/18 15:34 06/03/18 15:34 06/03/18 15:34 06/03/18 15:34 06/03/18 15:34 - Physical Exam Comments: Constitutional: Well-developed, obese male appearing intoxicated with smell of such breath. Found semi-fowlers in hospital. Alert to verbal but disoriented. Speech slurred. Provided incomplete and circuitous answers. Head: Normocephalic. No obvious external signs of trauma. No periorbital bruising or Battles sign. Eyes: PERRL. No nystagmus. Sclerae white. Conjunctiva moist and not injected. EARS: Hearing grossly intact. No drainage or discharge. NOSE: No nasal discharge. Neck: Supple, trachea is midline. No subjective c-spine tenderness or bony deformity (step off). Cardiovascular: Borderline tachycardic rate and regular rhythm. No murmur, rubs , clicks, or gallops. Peripheral pulses: Radial pulses full. Respiratory: Breathing unlabored. Equal chest rise and fall. Clear to auscultation bilaterally. No stridor, no wheezing, no rhonchi. Gastrointestinal: abdomen is mildly distended and subjectively tender throughout , no rebound or guarding. No pulsatile masses. No overlying skin lesions or obvious signs of trauma. Neuro: Moving all four extremities spontaneously. Localized withdrawal from pain. MSK/Skin: Warm, dry, and intact. No bruising, rashes, or other lesions. No gross bony deformities. <Celso Becker - Last Filed: 06/03/18 19:25> ED Treatment Course - LABORATORY CBC & Chemistry Diagram: 06/03/18 15:45 06/03/18 15:45 - ADDITIONAL ORDERS Additional order review: Laboratory Results 06/03/18 06/03/18 06/03/18 16:35 16:20 15:45 Sodium Potassium Chloride Carbon Dioxide Anion Gap BUN Creatinine Creat Clearance w eGFR Random Glucose Serum Osmolality 422 H Calcium Total Bilirubin AST ALT Alkaline Phosphatase Total Protein Albumin Lipase 3898 H Salicylates < 4.0 Acetaminophen < 2.0 Alcohol, Quantitative 06/03/18 06/03/18 15:45 15:45 Sodium 135 L Potassium 3.9 Chloride 98 Carbon Dioxide 25 Anion Gap 12 BUN 13 Creatinine 0.7 Creat Clearance w eGFR > 60 Random Glucose 167 H D Serum Osmolality Calcium 8.1 L Total Bilirubin 0.6 AST 254 H D ALT 243 H D Alkaline Phosphatase 207 H D Total Protein 7.1 Albumin 3.3 L Lipase Salicylates Acetaminophen Alcohol, Quantitative 413.5 H* 06/03/18 15:45 RBC 5.30 MCV 92.8 MCHC 33.7 RDW 14.1 MPV 8.1 - Medications Given in the ED: ED Medications Discontinued Medications Generic Name Dose Route Start Last Admin Trade Name Freq PRN Reason Stop Dose Admin Ondansetron HCl 4 mg 06/03/18 15:44 06/03/18 16:11 Zofran Injection IVPUSH 06/03/18 15:45 4 mg ONCE ONE Administration Pantoprazole Sodium 40 mg 06/03/18 15:43 06/03/18 16:11 Protonix Iv IVPUSH 06/03/18 15:44 40 mg ONCE ONE Administration Sodium Chloride 1,000 ml 06/03/18 15:47 06/03/18 16:11 Normal Saline - IV 06/03/18 15:48 1,000 ml ONCE ONE Administration <MaryJudith Arnie - Last Filed: 06/03/18 18:21> - LABORATORY CBC & Chemistry Diagram: 06/03/18 15:45 06/03/18 15:45 - ADDITIONAL ORDERS Additional order review: Laboratory Results 06/03/18 15:45 Serum Osmolality 422 H 06/03/18 15:45 RBC 5.30 MCV 92.8 MCHC 33.7 RDW 14.1 MPV 8.1 - RADIOLOGY Radiology Studies Ordered: Category Date Time Status ABDOMEN & PELVIS CT WITH CONTR [CT] Stat CT Scan 06/03/18 15:[address] W/O CONTR [CT] Stat CT Scan 06/03/18 15:[address] WITHOUT CONTRAST [CT] Stat CT Scan 06/03/18 15:32 Ordered Radiograph Interpretation: Non-con Head CT Jaiden Morton MD wrote on Jun 03, 2018 at 06:35 PM: Referring Physician: BISHOP DAUGHERTY Patient Name: MIGUELINA BA THIS IS A PRELIMINARY REPORT FROM [facility] [employer]ENT [employer]UCATION TEACH[employer] DATE OF SERVICE: 2018-06-03 16:40:51 IMAGES: [id number] EXAM: CT HEAD WITHOUT IV CONTRAST REASON FOR EXAM: Status post fall COMPARISON: None FINDINGS: The brain parenchymal architecture appears normal, with preservation of the hu -white differentiation. There is no acute intracranial hemorrhage, mass effect or midline shift. No abnormal intra-axial or extra-axial fluid collection is seen. The periventricular white matter is unremarkable. The ventricles and basilar cisterns are maintained. The bones of the calvarium and imaged skull base demonstrate no acute abnormality. The imaged paranasal sinuses and mastoid air cells : Minimal mucosal thickening of the left maxillary antrum. IMPRESSION: No acute intracranial abnormality or skull fracture. Individualized dose optimization techniques were used for this CT. THIS DOCUMENT HAS BEEN ELECTRONICALLY SIGNED Jaiden Morton MD 06/03/2018 18:34 EST Rashid Please call Imaging Executive Director Of Marketing [phone] with questions. Jaiden Morton MD Non-con Cervical Spine CT Jaiden Morton MD wrote on Jun 03, 2018 at 06:36 PM: Referring Physician: BISHOP DAUGHERTY Patient Name: MIGUELINA BA THIS IS A PRELIMINARY REPORT FROM [facility] [employer] [employer] DATE OF SERVICE: 2018-06-03 16:40:51 IMAGES: [id number] EXAM: CT CERVICAL SPINE WITHOUT IV CONTRAST INDICATION : Trauma COMPARISON: None FINDINGS: The vertebral body heights are maintained, without fracture or subluxation. Degenerative disc disease and spondylosis: None. The prevertebral soft tissues are normal in caliber. The epidural and paraspinal soft tissues are unremarkable There is no apical pulmonary mass or pneumothorax. The visualized brain and posterior fossa are unremarkable. C2-T1: No significant disc herniation. No significant spinal canal or neuroforaminal stenosis. Other findings: None IMPRESSION: 1. Straightening of the cervical lordosis without acute fracture or traumatic malalignment. This CT exam has been performed using low dose protocols to limit radiation exposure to as low as reasonably achievable. This center is recognized and certified by the [employer] [employer], a designation awarded to centers who have demonstrated faculty competency, clinical image excellence and radiation safety compliance requirements. Individualized dose optimization techniques were used for this CT. THIS DOCUMENT HAS BEEN ELECTRONICALLY SIGNED Jaiden Morton MD 06/03/2018 18:[address] with IV Contrast: Jaiden Morton MD wrote on Jun 03, 2018 at 06:41 PM: Referring Physician: BISHOP DAUGHERTY Patient Name: MIGUELINA BA THIS IS A PRELIMINARY REPORT FROM [facility] [employer] DATE OF SERVICE: 2018-06-03 16:47:20 IMAGES: [id number] EXAM: CT ABDOMEN AND PELVIS WITH IV CONTRAST HISTORY: Abdominal pain COMPARISON: None available FINDINGS: Lower Chest: Subsegmental atelectasis in the lower lung thacker. Abdomen: Liver:: Hepatomegaly with steatosis. Bile Ducts: Within normal limits. Gallbladder:: Within normal limits. Pancreas:: Moderate degree of peripancreatic inflammatory changes compatible with acute pancreatitis. No evidence of secondary complications. Spleen:: [id number] degree of perisplenic ascites Adrenals: Within normal limits. Kidneys: No evidence of hydronephrosis or nephrolithiasis. Stomach:: Small to moderate sliding hiatal hernia. Bowel:: No evidence of small bowel obstruction or mass. Normal appendix is identified. Inflammatory changes adjacent to the splenic flexure and proximal transverse colon related to patient's known acute pancreatitis. Small to moderate degree of diffuse ascites. Pelvis: Reproductive Organs: Within normal limits. Bladde: Within normal limits. Vessels: Aorta: Within the normal limits without aneurysm or dissection. Retroperitoneum: Retroperitoneal edema Bones: : No suspicious osseous lesions. Mild S-shaped thoracolumbar spondylosis. COMMENTS: Disclaimer: This document was generated using a voice recognition system, which may produce sporadic inaccurate monomer recovery supervisor or nonsensical phrases. Individualized dose optimization techniques were used for this CT. THIS DOCUMENT HAS BEEN ELECTRONICALLY SIGNED Jaiden Morton MD 06/03/2018 18:40 EST Evan. Please call Imaging Executive Director Of Marketing [phone] with questions. Jaiden Morton MD - Medications Given in the ED: ED Medications Discontinued Medications Generic Name Dose Route Start Last Admin Trade Name Freq PRN Reason Stop Dose Admin Ondansetron HCl 4 mg 06/03/18 15:44 06/03/18 16:11 Zofran Injection IVPUSH 06/03/18 15:45 4 mg ONCE ONE Administration Pantoprazole Sodium 40 mg 06/03/18 15:43 06/03/18 16:11 Protonix Iv IVPUSH 06/03/18 15:44 40 mg ONCE ONE Administration Sodium Chloride 1,000 ml 06/03/18 15:47 06/03/18 16:11 Normal Saline - IV 06/03/18 15:48 1,000 ml ONCE ONE Administration <Celso Becker - Last Filed: 06/03/18 19:25> Medical Decision Making - Medical Decision Making *Reviewed nursing notes and prior visit documentation. 32 y/o male presenting likely intoxication and s/p fall from seated position complaining of abdominal pain. Afebrile. Vitals remarkable for borderline tachycardia without hypotension. No evidence of head or cervical neck injuries. Abdomen is diffusely tender without peritoneal signs. CBC, CMP, Alcohol, and Serum Osmoles. Ordered NS IVFB, Zofran, and Protonix for symptom relief. Will obtain head, cervical spine, and abdominal CT as pt is unreliable. Low suspicion for traumatic injury. D/d includes gastritis, PUD, GERD, hepatitis, pancreatitis, cholecystitis, cholelytheiasis. Low suspicion for perforation. Alcohol level 413. CBC revealed leukocytosis to 18.9 CMP revealed elevated LFTs - not in a 2:1 ratio. Will further evaluate with acetaminophen, salicylates, and acute hepatitis panel. Lipase elevated >2x normal. Suspect acute pancreatitis. No hypocalcemia ( calculated 8.7 corrected for hypoalbuminemia). No evidence of cholecystitis on POCUS, performed with attending Dr. Hernandez. Will order Ketamine for pain relief given concern for respiratory depression with opiates and acute EtOH intoxication. 18:07 [facility]blog went to [facility] team for admission for acute pancreatitis. 18:18 Telephone consult with resident Dr. Mills. Requests triglycerides level. Will defer admission to night team. Will call back with admitting attendings name at 19:00. Head and Neck CT unremarkable for acute abnormalities. Abdominal CT revealed evidence of acute pancreatitis, hepatomegally with steatosis, and mild to moderate ascites. Night attending's name is Addie. Decision to admit order updated. 06/03/18 19:[address] Real. Agrees to admit pt. Requests LR maintenance rate to 250/hr. <Celos Becker - Last Filed: 06/03/18 19:25> *DC/Admit/Observation/Transfer - Discharge Dispostion Decision to Admit order: Yes <Judith Hernandez - Last Filed: 06/03/18 18:21> - Discharge Dispostion Decision to Admit order: Yes <Celso Becker - Last Filed: 06/03/18 19:25> Diagnosis at time of Disposition: Pancreatitis Qualifiers: Chronicity: acute Pancreatitis type: unspecified pancreatitis type Acute pancreatitis complication: unspecified Qualified Code(s): K85.90 - Acute pancreatitis without necrosis or infection, unspecified Alcohol intoxication Qualifiers: Complication of substance-induced condition: with unspecified complication Qualified Code(s): F10.929 - Alcohol use, unspecified with intoxication, unspecified - Discharge Dispostion Condition at time of disposition: Fair
[2018-06-03 16:24] LABS: ALBUMIN 3.3 g/dl (3.4-5.0); ALK PHOS 207 U/L (45-117); ANION GAP 12 MMOL/L (8-16); BILIRUBIN,TOTAL 0.6 mg/dL (0.2-1.0); BLOOD UREA NITROGEN 13 mg/dL (7-18); CALCIUM 8.1 mg/dL (8.5-10.1); CHLORIDE 98 mmol/L (98-107); CO2 25 mmol/L (21-32); CREATININE 0.7 mg/dL (0.7-1.3); GLUCOSE,RANDOM 167 mg/dL (74-106); SGPT/ALT 243 U/L (12-78); SODIUM 135 mmol/L (136-145); TOT PROT 7.1 g/dl (6.4-8.2)
[2018-06-03 16:25] LABS: POTASSIUM 3.9 mmol/L (3.5-5.1); SGOT/AST 254 U/L (15-37)
[2018-06-03] MEDS ORDERED: KETAMINE HCL 500 MG/10 ML VIAL IV ONE (18:05)
[2018-06-03] MEDS ORDERED: LACTATED RINGERS SOLUTION 1,000 ML/1,000 ML INFUS.BAG IV SCH (18:15)
[2018-06-03] MEDS ORDERED: LACTATED RINGERS SOLUTION 1000 ML INFUS.BAG IV ONE (18:15)
[2018-06-03] MEDS ORDERED: KETAMINE HCL 200 MG/20 ML VIAL ONE (18:30)
[2018-06-03] MEDS ORDERED: LORazepam 2 MG/ML SDV VIAL IVPUSH PRN (19:43)
[2018-06-03] MEDS ORDERED: LORazepam 0.5 MG TABLET ONE (20:20)
[2018-06-03] MEDS: LORazepam 1 MG TABLET PO SCH (20:25)
[2018-06-03] MEDS ORDERED: FOLIC ACID 1 MG TABLET (FP) PO ONE (20:38)
--- NOTE | 2018-06-03 20:56 | HP ---
CHIEF COMPLAINT: Abdominal Pain PCP: Unable to obtain HISTORY OF PRESENT ILLNESS: 32 y/o male was BIBEMS to [facility] ED from [facility] s/p witnessed fall from chair. On my interview, Patient was intoxicated and falling asleep, thus history was primarily obtained by chart review. Patient apparently hit his head while waiting to be admitted for detox and subsequently started complaining of Abdominal pain. Patient says his last drink was last night and he normally uses 20-30 "nips" daily (Nip = 50mL Bottle. 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 Degenerative disc disease PAST SURGICAL HISTORY: Unable to obtain Social History: Smoking: Unable to obtain Alcohol: 20-30 nips daily, Last use last night Drugs: Opiate use, admits use last night Family History: Unable to obtain Allergies No Known Allergies Allergy (Verified 06/03/18 15:29) HOME MEDICATIONS: Home Medications Medication Instructions Recorded Methadone [Dolophine -] 120 mg PO DAILY 02/05/18 Albuterol Sulfate Inhaler - 2 puff IH Q4H PRN #1 inhaler 04/03/18 [Ventolin HFA Inhaler -] Amlodipine Besylate [Norvasc -] 10 mg PO DAILY #30 tablet 05/22/18 Hydrochlorothiazide [Hctz -] 25 mg PO DAILY #30 tablet 05/22/18 REVIEW OF SYSTEMS Unable to obtain PHYSICAL EXAMINATION Vital Signs - 24 hr 06/03/18 06/03/18 15:34 17:55 Temperature 98.0 F Pulse Rate 94 H Respiratory 17 Rate Blood Pressure 165/106 O2 Sat by Pulse 98 97 Oximetry (%) GENERAL: Alert and oriented to person, time and place, however intoxicated and lethargic, with dried vomit present on bed sheet HEAD: NCAT NECK: No tenderness to palpation, No obvious trauma present LUNGS: Breath sounds equal, clear to auscultation bilaterally. No wheezes HEART: Regular rate and rhythm, normal S1 and S2 without murmur ABDOMEN: Soft, Tender to palpation throughout most prominent at the midepigastrum, not distended, + bowel sounds EXTREMITIES: 2+ pulses, No peripheral edema. SKIN: Warm, dry, dried vomiting surrounding lips, patch of dried blood present over the Right ear Laboratory Results - last 24 hr 06/03/18 06/03/18 06/03/18 15:45 15:45 15:45 WBC 18.9 H RBC 5.30 Hgb 16.6 Hct 49.1 H D MCV 92.8 MCH 31.3 MCHC 33.7 RDW 14.1 Plt Count 326 MPV 8.1 Sodium 135 L Potassium 3.9 Chloride 98 Carbon Dioxide 25 Anion Gap 12 BUN 13 Creatinine 0.7 Creat Clearance w eGFR > 60 Random Glucose 167 H D Serum Osmolality Calcium 8.1 L Total Bilirubin 0.6 AST 254 H D ALT 243 H D Alkaline Phosphatase 207 H D Total Protein 7.1 Albumin 3.3 L Triglycerides Lipase Salicylates Acetaminophen Alcohol, Quantitative 413.5 H* 06/03/18 06/03/18 06/03/18 15:45 16:20 16:35 WBC RBC Hgb Hct MCV MCH MCHC RDW Plt Count MPV Sodium Potassium Chloride Carbon Dioxide Anion Gap BUN Creatinine Creat Clearance w eGFR Random Glucose Serum Osmolality 422 H Calcium Total Bilirubin AST ALT Alkaline Phosphatase Total Protein Albumin Triglycerides Lipase 3898 H Salicylates < 4.0 Acetaminophen < 2.0 Alcohol, Quantitative 06/03/18 18:30 WBC RBC Hgb Hct MCV MCH MCHC RDW Plt Count MPV Sodium Potassium Chloride Carbon Dioxide Anion Gap BUN Creatinine Creat Clearance w eGFR Random Glucose Serum Osmolality Calcium Total Bilirubin AST ALT Alkaline Phosphatase Total Protein Albumin Triglycerides 442 H Lipase Salicylates Acetaminophen Alcohol, Quantitative Active Medications Heparin Sodium (Porcine) (Heparin -) 5,000 unit SQ TID [facility] Last Admin: 06/03/18 21:00 Dose: Not Given Lactated Ringer's (Lactated Ringers Solution) 1,000 ml in 1,000 mls @ 250 mls/ hr IV ASDIR RAVEN Last Admin: 06/03/18 21:22 Dose: 250 mls/hr Lorazepam (Ativan -) 2 mg PO Q4HPO RAVEN Last Admin: 06/04/18 02:35 Dose: Not Given Lorazepam (Ativan Injection -) 2 mg IVPUSH Q4H PRN PRN Reason: WITHDRAWAL(CONT SUBST) Last Admin: 06/03/18 22:00 Dose: 2 mg Morphine Sulfate (Morphine Sulfate) 2 mg IVPUSH Q6H PRN PRN Reason: PAIN LEVEL 7 - 10 Stop: 06/04/18 23:06 Last Admin: 06/04/18 00:31 Dose: 2 mg Thiamine HCl (Vitamin B1 -) 100 mg PO DAILY RAVEN ASSESSMENT/PLAN: 32 y/o male was BIBEMS to [facility] ED from [facility] s/p witnessed fall from chair. 1. EtOH Intoxication - Cannot access CIWA as patient was falling asleep, Avoiding librium due to elevated LFTs - Placed on 250 mls/hr Lactated ringers - Placed on Ativan 2mg PO Q4H Raven and 2mg IV PRN Q4H - Pending Mag and Phos, will replete if low - Replete Thiamine, Folate - Monitor transaminitis - Hepatitis panel pending 2. Midepigastric Abdominal pain - Likely due to Acute vs chronic pancreatitis due to Alcohol use - Given Zofran, protonix in ED - CT A/P Pending official Read; Imaging prisoner classification interviewer read shows Acute pancreatitis, Hepatomegaly with steatosis - Lipase 3898, TG 442 - NPO, Will advance as tolerated - Given Compazine 10mg x1 for Nausea - Lactated ringers 250 mls/hr - Pain control via Morphine 2mg PRN Q6H 3. Opiod Dependence - Patient says he is on Methadone 120mg daily - Detox/Addiction (Dr. Leggett) Consulted - Currently holding Methadone as EKG shows Prolonged QTc of 490 - Repeat EKG pending this AM - Continue to monitor for signs of withdrawal 4. S/P witnessed fall with possible head trauma - No obvious trauma noted on exam - CT Head and C-Spine Pending official Read; Negative Imaging prisoner classification interviewer read - Fall Precautions 5. HTN - Continue home dose Norvasc, HCTZ (Meds Reconciled) 6. Asthma - Continue home dose Ventolin 7. FEN - LR 250mls/hr - Lytes wnl, continue to monitor - NPO 8. PPx - DVT: Heparin TID Dispo: Admit to med-surg Visit type - Emergency Visit Emergency Visit: Yes ED Registration Date: 06/03/18 Care time: The patient presented to the Emergency Department on the above date and was hospitalized for further evaluation of their emergent condition. - New Patient This patient is new to me today: Yes Date on this admission: 06/04/18 - Critical Care Critical Care patient: No Hospitalist Screening - Colonoscopy Questionnaire Colonoscopy Questionnaire: Colonoscopy Questionnaire - Patient: 50 - 75 years old and never had a screening colonoscopy: Unknown History of colon or rectal polyps, or CA: Unknown History of IBD, Crohn's disease or UC: Unknown History of abdominal radiation therapy as a child: Unknown - Relative: 1 with colon or rectal CA, or polyps at age 60 or younger: Unknown Colon or rectal CA diagnosed at age 45 or younger: Unknown Multiple relatives with colon or rectal CA: Unknown - Outcome: Screening Result: Negative Screen
[2018-06-03] MEDS: HEPARIN NA (PORCINE) 5,000 UNITS/ML 1ML VIAL SQ SCH (21:00)
--- NOTE | 2018-06-03 21:00 | PN ---
Teaching Attending Note Name of Resident: Nery Quesada ATTENDING PHYSICIAN STATEMENT I saw and evaluated the patient. I reviewed the resident's note and discussed the case with the resident. I agree with the resident's findings and plan as documented. SUBJECTIVE: OBJECTIVE: ASSESSMENT AND PLAN: patient admitted for acute pancreatitis 2/2 alcohol intake plan: 250cc/hr fluids monitor patient for signs of withdrawal place patient on CIWA with lorazepam due to elevated liver function keep patient NPO until the patient is requesting food pain management morphine elevated LFT avoid chlorodiazopoxide
[2018-06-03] MEDS: LACTATED RINGERS SOLUTION 1,000 ML/1,000 ML INFUS.BAG IV SCH (21:22)
[2018-06-03 22:03] LABS: MAGNESIUM 1.6 mg/dL (1.8-2.4); PHOSPHOROUS 3.7 mg/dL (2.5-4.9)
[2018-06-03] MEDS ORDERED: PROCHLORPERAZINE INJECTION 10 MG/2 ML VIAL IVPB ONE (23:15)
[2018-06-04] MEDS: MORPHINE SULFATE 2 MG/ML VIAL IVPUSH PRN ×5 (00:31→22:32)
[2018-06-04] MEDS ORDERED: LORazepam 2 MG/ML SDV VIAL IVPUSH ONE (01:15)
[2018-06-04] MEDS ORDERED: MELATONIN 5 MG TABLETS PO ONE (02:20)
[2018-06-04] MEDS: LORazepam 1 MG TABLET PO SCH ×3 (02:35→09:34)
[2018-06-04] MEDS ORDERED: ALBUTEROL SO4 8 GM HFA INHALER IH PRN (03:34)
[2018-06-04] MEDS: HEPARIN NA (PORCINE) 5,000 UNITS/ML 1ML VIAL SQ SCH (05:21)
[2018-06-04] MEDS ORDERED: METHADONE HCL 10 MG TABLET PO ONE (06:48)
[2018-06-04] MEDS ORDERED: METHADONE HCL 40 MG DISPERSABLE TABLET PO ONE (07:00)
[2018-06-04 07:57] LABS: BASO % 0.1 % (0-2.0); HEMATOCRIT 46.2 % (35.4-49); HEMOGLOBIN 15.9 GM/dL (11.7-16.9); LYMPH % 4.3 % (8-40); MCH 31.3 pg (25.7-33.7); MCHC 34.4 g/dl (32.0-35.9); MEAN CELL VOLUME 91.1 fl (80-96); MEAN PLT VOLUME 8.5 fl (7.5-11.1); NEUT % 91.6 % (42.8-82.8); PLATELET COUNT 267 K/MM3 (134-434); RBC 5.07 M/mm3 (4.00-5.60); RDW 13.7 % (11.9-15.9); WHITE BLOOD COUNT 27.8 K/mm3 (4.0-10.0)
[2018-06-04 08:12] LABS: CHLORIDE 98 mmol/L (98-107); POTASSIUM 3.7 mmol/L (3.5-5.1); SODIUM 135 mmol/L (136-145)
[2018-06-04] MEDS ORDERED: chlordiazePOXIDE HCL 25 MG CAPSULE PO STA (08:15)
[2018-06-04] MEDS ORDERED: MAGNESIUM SULF 50% (8.12 MEQ/2 ML-1 GM VIAL) IVPB ONE (08:15)
[2018-06-04 08:20] LABS: ALBUMIN 3.1 g/dl (3.4-5.0); ALK PHOS 159 U/L (45-117); ANION GAP 16 MMOL/L (8-16); BILIRUBIN,TOTAL 1.7 mg/dL (0.2-1.0); BLOOD UREA NITROGEN 9 mg/dL (7-18); CALCIUM 8.4 mg/dL (8.5-10.1); CO2 21 mmol/L (21-32); CREATININE 0.8 mg/dL (0.7-1.3); GLUCOSE,RANDOM 147 mg/dL (74-106); MAGNESIUM 0.9 mg/dL (1.8-2.4); PHOSPHOROUS 2.7 mg/dL (2.5-4.9); SGOT/AST 139 U/L (15-37); SGPT/ALT 160 U/L (12-78); TOT PROT 6.1 g/dl (6.4-8.2)
[2018-06-04] MEDS ORDERED: LACTATED RINGERS SOLUTION 1000 ML INFUS.BAG IV ONE (09:34)
[2018-06-04] MEDS ORDERED: HYDROCHLOROTHIAZIDE 25 MG TABLET (FP) PO SCH (10:00)
--- NOTE | 2018-06-04 10:24 | EKG ---
Test Reason : Blood Pressure : / mmHG Vent. Rate : 145 BPM Atrial Rate : 145 BPM P-R Int : 134 ms QRS Dur : 080 ms QT Int : 264 ms P-R-T Axes : 052 030 076 degrees QTc Int : 410 ms SINUS TACHYCARDIA NONSPECIFIC T WAVE ABNORMALITY ABNORMAL ECG WHEN COMPARED WITH ECG OF 03-JUN-2018 22:45, VENT. RATE HAS INCREASED T WAVE VARIATION Confirmed by ROBERTA SNYDER MD ([id number]) on 06/04/2018 10:24:35 AM Referred By: Confirmed By:ROBERTA SNYDER MD
--- NOTE | 2018-06-04 10:25 | EKG ---
Test Reason : Blood Pressure : / mmHG Vent. Rate : 108 BPM Atrial Rate : 110 BPM P-R Int : 154 ms QRS Dur : 084 ms QT Int : 366 ms P-R-T Axes : 063 030 065 degrees QTc Int : 490 ms SINUS TACHYCARDIA OTHERWISE NORMAL ECG WHEN COMPARED WITH ECG OF 12-MAY-2018 20:55, T WAVE VARIATION Confirmed by ROBERAT SNYDER MD ([id number]) on 06/04/2018 10:24:55 AM Referred By: Confirmed By:ROBERTA SNYDER MD
[2018-06-04] MEDS: amLODIPine BESYLATE 10 MG TABLET (FP) PO SCH (10:49)
[2018-06-04] MEDS: THIAMINE HCL 100 MG TABLET (FP) PO SCH (10:49)
[2018-06-04] MEDS ORDERED: chlordiazePOXIDE HCL 25 MG CAPSULE PO SCH (11:00)
[2018-06-04 11:15] LABS: ANISOCYTOSIS 1+; MACROCYTOSIS 1+; PLATELET ESTIMATE NORMAL
--- NOTE | 2018-06-04 11:54 | PN ---
Physical Exam: SUBJECTIVE: Patient seen and examined this AM. Pt very anxious on interview. Says he is having headache, nausea, vomiting overnight (nonbloody), pins and needles in his extremities, Visual hallucinations of war images, auditory hallucinations which he cannot describe, tremors and shakes, and sweating. Pt states that he knows he is actively withdrawing from alcohol and needs detox. He is unable to tell me why he ws admitted to the hospital from detox instead of staying there. He denies any recent fall history, though as per chart, he is here following a fall in which he hit his head waiting on admission to detox. OBJECTIVE: Vital Signs Period Temp Pulse Resp BP Sys/Kim Pulse Ox Last 24 Hr 98.0 F-98.8 F 88-145 17-24 135-165/82-109 97-98 GENERAL: A&O, anxious and in moderate distress HEAD: Normocephalic, atraumatic. EYES: PERRL, no scleral icterus EARS, NOSE, THROAT: oropharynx clear without exudates. Moist mucous membranes. NECK: supple without lymphadenopathy LUNGS: CTA b/l, no crackles or wheezes HEART: Tachycardic in the 140s, regular rhythm, normal S1 and S2 without murmur ABDOMEN: Soft, diffusely tender to palpation worst in epigastric region, normoactive bowel sounds MUSCULOSKELETAL: No bony deformities or tenderness. EXTREMITIES: 2+ pulses, warm, well-perfused. No peripheral edema. NEUROLOGICAL: Cranial nerves II-XII grossly intact. Tremulous on exam. PSYCHIATRIC: Very anxious on exam SKIN: Warm, dry, no rashes or lesions noted Laboratory Results - last 24 hr 06/03/18 06/03/18 06/03/18 15:45 15:45 15:45 WBC 18.9 H RBC 5.30 Hgb 16.6 Hct 49.1 H D MCV 92.8 MCH 31.3 MCHC 33.7 RDW 14.1 Plt Count 326 MPV 8.1 Absolute Neuts (auto) Neutrophils % Neutrophils % (Manual) Band Neutrophils % Lymphocytes % Lymphocytes % (Manual) Monocytes % Monocytes % (Manual) Eosinophils % Eosinophils % (Manual) Basophils % Basophils % (Manual) Myelocytes % (Man) Promyelocytes % (Man) Blast Cells % (Manual) Nucleated RBC % Metamyelocytes Hypochromia Platelet Estimate Polychromasia Poikilocytosis Anisocytosis Microcytosis Macrocytosis Sodium 135 L Potassium 3.9 Chloride 98 Carbon Dioxide 25 Anion Gap 12 BUN 13 Creatinine 0.7 Creat Clearance w eGFR > 60 Random Glucose 167 H D Serum Osmolality Calcium 8.1 L Phosphorus Magnesium Total Bilirubin 0.6 AST 254 H D ALT 243 H D Alkaline Phosphatase 207 H D Total Protein 7.1 Albumin 3.3 L Triglycerides Lipase Salicylates Acetaminophen Alcohol, Quantitative 413.5 H* 06/03/18 06/03/18 06/03/18 15:45 16:20 16:35 WBC RBC Hgb Hct MCV MCH MCHC RDW Plt Count MPV Absolute Neuts (auto) Neutrophils % Neutrophils % (Manual) Band Neutrophils % Lymphocytes % Lymphocytes % (Manual) Monocytes % Monocytes % (Manual) Eosinophils % Eosinophils % (Manual) Basophils % Basophils % (Manual) Myelocytes % (Man) Promyelocytes % (Man) Blast Cells % (Manual) Nucleated RBC % Metamyelocytes Hypochromia Platelet Estimate Polychromasia Poikilocytosis Anisocytosis Microcytosis Macrocytosis Sodium Potassium Chloride Carbon Dioxide Anion Gap BUN Creatinine Creat Clearance w eGFR Random Glucose Serum Osmolality 422 H Calcium Phosphorus Magnesium Total Bilirubin AST ALT Alkaline Phosphatase Total Protein Albumin Triglycerides Lipase 3898 H Salicylates < 4.0 Acetaminophen < 2.0 Alcohol, Quantitative 06/03/18 06/03/18 06/04/18 18:30 21:33 07:00 WBC 27.8 H RBC 5.07 Hgb 15.9 Hct 46.2 MCV 91.1 MCH 31.3 MCHC 34.4 RDW 13.7 Plt Count 267 MPV 8.5 Absolute Neuts (auto) 25.5 H Neutrophils % 91.6 H Neutrophils % (Manual) 94.8 H Band Neutrophils % 1.0 Lymphocytes % 4.3 L Lymphocytes % (Manual) 2.1 L Monocytes % 4.0 Monocytes % (Manual) 2 L Eosinophils % 0.0 Eosinophils % (Manual) 0.0 Basophils % 0.1 Basophils % (Manual) 0.0 Myelocytes % (Man) 0 Promyelocytes % (Man) 0 Blast Cells % (Manual) 0 Nucleated RBC % 0 Metamyelocytes 0 Hypochromia 0 Platelet Estimate Normal Polychromasia 0 Poikilocytosis 1+ Anisocytosis 1+ Microcytosis 0 Macrocytosis 1+ Sodium Potassium Chloride Carbon Dioxide Anion Gap BUN Creatinine Creat Clearance w eGFR Random Glucose Serum Osmolality Calcium Phosphorus 3.7 Magnesium 1.6 L Total Bilirubin AST ALT Alkaline Phosphatase Total Protein Albumin Triglycerides 442 H Lipase Salicylates Acetaminophen Alcohol, Quantitative 06/04/18 07:00 WBC RBC Hgb Hct MCV MCH MCHC RDW Plt Count MPV Absolute Neuts (auto) Neutrophils % Neutrophils % (Manual) Band Neutrophils % Lymphocytes % Lymphocytes % (Manual) Monocytes % Monocytes % (Manual) Eosinophils % Eosinophils % (Manual) Basophils % Basophils % (Manual) Myelocytes % (Man) Promyelocytes % (Man) Blast Cells % (Manual) Nucleated RBC % Metamyelocytes Hypochromia Platelet Estimate Polychromasia Poikilocytosis Anisocytosis Microcytosis Macrocytosis Sodium 135 L Potassium 3.7 Chloride 98 Carbon Dioxide 21 Anion Gap 16 BUN 9 Creatinine 0.8 Creat Clearance w eGFR > 60 Random Glucose 147 H Serum Osmolality Calcium 8.4 L Phosphorus 2.7 D Magnesium 0.9 L D Total Bilirubin 1.7 H AST 139 H D ALT 160 H D Alkaline Phosphatase 159 H D Total Protein 6.1 L Albumin 3.1 L Triglycerides Lipase Salicylates Acetaminophen Alcohol, Quantitative Active Medications Generic Name Dose Route Start Last Admin Trade Name Freq PRN Reason Stop Dose Admin Albuterol Sulfate 2 puff 06/04/18 03:34 Ventolin Hfa Inhaler - IH Q4H PRN SHORT OF BREATH/WHEEZING Amlodipine Besylate 10 mg 06/04/18 10:00 06/04/18 10:49 Norvasc - PO 10 mg DAILY AUDIE Administration Chlordiazepoxide HCl 25 mg 06/05/18 11:00 Librium - PO 06/06/18 05:01 [id number] AUDIE Chlordiazepoxide HCl 15 mg 06/06/18 11:00 Librium - PO 06/07/18 05:01 [id number] AUDIE Chlordiazepoxide HCl 25 mg 06/04/18 07:54 Librium - PO 06/07/18 07:53 Q4H PRN WITHDRAWAL(CONT SUBST) Chlordiazepoxide HCl 10 mg 06/07/18 11:00 Librium - PO 06/08/18 05:01 [id number] AUDIE Chlordiazepoxide HCl 50 mg 06/04/18 14:00 Librium - PO H4C-HMC PRN WITHDRAWAL(CONT SUBST) Heparin Sodium (Porcine) 5,000 unit 06/03/18 22:00 06/04/18 05:21 Heparin - SQ Not Given TID AUDIE Lactated Ringer's 1,000 ml in 1,000 mls @ 250 mls/hr 06/03/18 19:26 06/03/18 21:22 Lactated Ringers Solution IV 250 mls/hr ASDIR AUDIE Administration Morphine Sulfate 2 mg 06/03/18 23:07 06/04/18 11:24 Morphine Sulfate IVPUSH 06/04/18 23:06 2 mg Q6H PRN Administration PAIN LEVEL 7 - 10 Thiamine HCl 100 mg 06/04/18 10:00 06/04/18 10:49 Vitamin B1 - PO 100 mg DAILY AUDIE Administration ASSESSMENT/PLAN: 32 yo Male was admitted from [facility]ox s/p witnessed fall from chair while awaiting admission for Detox from alcohol, also found to have Acute Pancreatitis. Acute Pancreatitis -Pt with epigastric pain, n/v, Lipase of 3900, CT noted with signs of acute pancreatitis -RUQ u/s noted without gallstones or CBD dilatation, LFTs improving -LR @ 250 cc/hr -Pt is requesting food, will trial clear liquids for dinner and advance or slow down as tolerated -PRN Morphine 2mg IV Q6 -Motrin 600 mg PO can be given for pain in addition to Morphine Withdrawal symptoms, likely secondary to alcohol withdrawal though pt noted on methadone maintenance with verified 120 mg dose daily -Pt is actively withdrawing from alcohol, CIWA of 20 by my evaluation this morning -Complaining of hallucinations to me this AM which would support alcohol withdrawal over opiod, pt also has been taking methadone consistently -Given ativan overnight due to elevation of LFTs which are now improving -Converted to Librium taper protocol, pt is currently requiring PRN dose in addition to taper, will reevaluate for need to prolong or increase taper Meets SIRS criteria -Pt was tachycardic in 130s with WBC of 27.8 -Likely secondary to Acute Pancreatitis, very unlikely infectious at this time -Will hold off on Abx for now S/P witnessed Fall with head trauma -Likely secondary to alcohol intoxication -No visible trauma to the head -CT Head negative for bleed or fracture -CT Cervical Spine negative for fracture or subluxation HTN -Norvasc 10mg PO Daily -Home dose of HCTZ held due to electrolyte abnormalities DVT Prophylaxis -Lovenox 40 mg SQ Daily FEN -Fluids: LR @ 250 cc/hr -Electrolytes: Mg 0.9, Phos 2.7, Repleting, BMP in AM -Nutrition: NPO, sips of water with meds Disposition Visit type - Emergency Visit Emergency Visit: Yes ED Registration Date: 06/03/18 Care time: The patient presented to the Emergency Department on the above date and was hospitalized for further evaluation of their emergent condition. - New Patient This patient is new to me today: Yes Date on this admission: 06/04/18 - Critical Care Critical Care patient: Yes Total Critical Care Time (in minutes): 35 Critical Care Statement: The care of this patient involved high complexity decision making to prevent further life threatening deterioration of the patient 's condition and/or to evaluate & treat vital organ system(s) failure or risk of failure.
--- NOTE | 2018-06-04 12:10 | PN ---
Teaching Attending Note Name of Resident: Lai Blue ATTENDING PHYSICIAN STATEMENT I saw and evaluated the patient. I reviewed the resident's note and discussed the case with the resident. I agree with the resident's findings and plan as documented. SUBJECTIVE:c/o auditory/visual hallucinations. states hes seeing colors on the ceiling, states that the voices are not giving commands or telling him to hurt himself/others (appears they are more sounds). states hes had abdominal pain like this in the past but never went to a hospital about it and just dealt with it at home. cont to have N. denies Cp, SOB, fever, chills, MURPHY, V/C/D OBJECTIVE: Last Vital Signs Temp Pulse Resp BP Pulse Ox 98.8 F 98 H 24 142/88 98 06/04/18 10:45 06/04/18 10:45 06/04/18 10:45 06/04/18 10:45 06/03/18 22:00 General mildly anxious CV S1 S2 tachy lungs CTA B/L no wheezing/rales/rhonchi Abdomen +epigastric tenderness +distended. normoactive BS extremities +tremor at rest ASSESSMENT AND PLAN: 32yo M with PMH HTN and continuous polysusbtance abuse presented to the ER from [facility] after witnessed fall from a chair and c/o abdominal pain 1. Acute pancreatitits- likely due to ETOH however will need to r/o gallstones. bisap 1. check RUQ u/s. NPO, IVF and pain control. 2. Acute ETOH withdrawal- CIWA 19. will start libirum protocol. cont IVF, thiamine, folate, MVI. pt interested in doing inpatient rehab at [facility], states he has not completed inpatient rehab in the past. detox consulted 3. Acute transaminitis- LIkely induced from ETOH. will evaluate liver on u/s. hepatits panel pending 4. SIRS- likely due to acute pancreatitis and not infectious cause. no indication for abx at this time. no signs of necrotizing pancreatitis on imaging. will consider repeat imaging if patient does not clinically improve 5. mechanical fall- likely from acute intoxication at the time. imaging negative for fracture. PT assesment when medically improved 6. Hypomagnesemia- Mg IV and po. monitor closely 7. remote opiate abuse now on methadone. dose confirmed by RN. will cont for now. no signs of opiate withdrawal 8. HTN- would hold diuretic at this time. can continue norvasc 9. DVT ppx- hep sq
[2018-06-04] MEDS: chlordiazePOXIDE HCL 25 MG CAPSULE PO PRN ×2 (12:22→17:58)
[2018-06-04] MEDS ORDERED: NAPH,MB-DB/K PH,MBDB POWDER PACKET PO ONE (13:36)
[2018-06-04] MEDS: chlordiazePOXIDE HCL 25 MG CAPSULE PO SCH ×2 (13:50→21:02)
[2018-06-04] MEDS ORDERED: chlordiazePOXIDE HCL 25 MG CAPSULE PO PRN ×2 (14:00→18:05)
[2018-06-04] MEDS ORDERED: IBUPROFEN 600 MG TABLET (FP) PO ONE (15:35)
[2018-06-04] MEDS ORDERED: MAGNESIUM OXIDE 400 MG TABLET (FP) PO ONE (15:37)
[2018-06-04] MEDS: LACTATED RINGERS SOLUTION 1,000 ML/1,000 ML INFUS.BAG IV SCH ×2 (15:39→21:17)
[2018-06-05] MEDS: chlordiazePOXIDE HCL 25 MG CAPSULE PO PRN ×4 (00:08→20:11)
[2018-06-05] MEDS: chlordiazePOXIDE HCL 25 MG CAPSULE PO SCH ×5 (02:07→23:22)
[2018-06-05] MEDS: NICOTINE POLACRILEX 2 MG GUM BUC PRN (02:07)
[2018-06-05] MEDS ORDERED: MELATONIN 5 MG TABLETS PO ONE (02:26)
[2018-06-05] MEDS ORDERED: IBUPROFEN 600 MG TABLET (FP) PO ONE (02:26)
[2018-06-05] MEDS ORDERED: ALBUTEROL SO4 0.083% IH SOL 2.5 MG/3 ML VIAL.NEB. NEB ONE (03:38)
[2018-06-05] MEDS ORDERED: LORazepam 2 MG/ML SDV VIAL IVPUSH ONE (03:47)
[2018-06-05 06:10] LABS: HEP.C VIRUS AB 0.2 s/co ratio (0.0-0.9)
[2018-06-05 07:33] LABS: BASO % 0.1 % (0-2.0); EOS % 0.2 % (0-4.5); HEMATOCRIT 40.8 % (35.4-49); HEMOGLOBIN 13.7 GM/dL (11.7-16.9); LYMPH % 6.2 % (8-40); MCHC 33.6 g/dl (32.0-35.9); MEAN CELL VOLUME 92.1 fl (80-96); MEAN PLT VOLUME 9.4 fl (7.5-11.1); MONO % 3.8 % (3.8-10.2); NEUT % 89.7 % (42.8-82.8); PLATELET COUNT 156 K/MM3 (134-434); RBC 4.43 M/mm3 (4.00-5.60); RDW 13.9 % (11.9-15.9)
[2018-06-05 07:56] LABS: CHLORIDE 97 mmol/L (98-107); POTASSIUM 3.9 mmol/L (3.5-5.1); SODIUM 134 mmol/L (136-145)
[2018-06-05 08:05] LABS: ALBUMIN 2.5 g/dl (3.4-5.0); ALK PHOS 112 U/L (45-117); ANION GAP 9 MMOL/L (8-16); BILIRUBIN,DIRECT 0.8 mg/dL (0.0-0.2); BILIRUBIN,TOTAL 2.1 mg/dL (0.2-1.0); BLOOD UREA NITROGEN 10 mg/dL (7-18); CO2 28 mmol/L (21-32); CREATININE 0.5 mg/dL (0.7-1.3); GLUCOSE,RANDOM 112 mg/dL (74-106); MAGNESIUM 1.7 mg/dL (1.8-2.4); PHOSPHOROUS 1.8 mg/dL (2.5-4.9); SGOT/AST 66 U/L (15-37); SGPT/ALT 86 U/L (12-78); TOT PROT 5.3 g/dl (6.4-8.2)
[2018-06-05] MEDS ORDERED: LACTATED RINGERS SOLUTION 1,000 ML/1,000 ML INFUS.BAG IV SCH (08:06)
--- NOTE | 2018-06-05 08:09 | PN ---
Teaching Attending Note Name of Resident: Lai Blue ATTENDING PHYSICIAN STATEMENT I saw and evaluated the patient. I reviewed the resident's note and discussed the case with the resident. I agree with the resident's findings and plan as documented with exceptions below. SUBJECTIVE: Patient seen and examined. Still with abdominal pain, minimal clears intake with worsening nausea and abdominal pain. Still tremulous, occasional hallucinations, librium helping. Reports prior h/o hallucinations with withdrawal from alcohol. OBJECTIVE: Vital Signs Period Temp Pulse Resp BP Sys/Kim Pulse Ox Last 24 Hr 98.4 F-99.8 F 98-148 20-24 139-160/71-118 99-99 Intake & Output 06/02/18 06/03/18 06/04/18 06/05/18 23:59 23:59 23:59 23:59 Intake Total 4350 3000 Balance 4350 3000 Weight 216 lb General: lying in bed, mildly anxious, mild distress from pain Chest: CTAB, no rales or wheezing Abdomen: distended, vague generalized tenderness more in epigastric region, no voluntary or involuntary guarding or rigidity, positive bowel sounds Extremities: no edema Home Medications Medication Instructions Recorded Methadone [Dolophine -] 120 mg PO DAILY 02/05/18 Albuterol Sulfate Inhaler - 2 puff IH Q4H PRN #1 inhaler 04/03/18 [Ventolin HFA Inhaler -] Amlodipine Besylate [Norvasc -] 10 mg PO DAILY #30 tablet 05/22/18 Hydrochlorothiazide [Hctz -] 25 mg PO DAILY #30 tablet 05/22/18 Active Medications Albuterol Sulfate (Ventolin Hfa Inhaler -) 2 puff IH Q4H PRN PRN Reason: SHORT OF BREATH/WHEEZING Amlodipine Besylate (Norvasc -) 10 mg PO DAILY AUDIE Last Admin: 06/04/18 10:49 Dose: 10 mg Chlordiazepoxide HCl (Librium -) 25 mg PO [id number] AUDIE Stop: 06/06/18 05:01 Chlordiazepoxide HCl (Librium -) 15 mg PO [id number] AUDIE Stop: 06/07/18 05:01 Chlordiazepoxide HCl (Librium -) 10 mg PO [id number] AUDIE Stop: 06/08/18 05:01 Chlordiazepoxide HCl (Librium -) 50 mg PO Q6H PRN PRN Reason: WITHDRAWAL(CONT SUBST) Last Admin: 06/05/18 06:27 Dose: 50 mg Enoxaparin Sodium (Lovenox -) 40 mg SQ DAILY [facility] Lactated Ringer's (Lactated Ringers Solution) 1,000 ml in 1,000 mls @ 125 mls/ hr IV ASDIR AUDIE Magnesium Sulfate (Magnesium Sulfate) 2 gm IVPB ONCE ONE Stop: 06/05/18 08:09 Nicotine Polacrilex (Nicorette Gum -) 2 mg BUC Q2H PRN PRN Reason: NICOTINE REPLACEMENT RX Last Admin: 06/05/18 02:07 Dose: 2 mg Thiamine HCl (Vitamin B1 -) 100 mg PO DAILY AUDIE Last Admin: 06/04/18 10:49 Dose: 100 mg Laboratory Results - last 24 hr 06/03/18 06/04/18 06/04/18 16:35 07:00 07:00 WBC RBC Hgb Hct MCV MCH MCHC RDW Plt Count MPV Absolute Neuts (auto) Neutrophils % Neutrophils % (Manual) 94.8 H Band Neutrophils % 1.0 Lymphocytes % Lymphocytes % (Manual) 2.1 L Monocytes % Monocytes % (Manual) 2 L Eosinophils % Eosinophils % (Manual) 0.0 Basophils % Basophils % (Manual) 0.0 Myelocytes % (Man) 0 Promyelocytes % (Man) 0 Blast Cells % (Manual) 0 Nucleated RBC % Metamyelocytes 0 Hypochromia 0 Platelet Estimate Normal Polychromasia 0 Poikilocytosis 1+ Anisocytosis 1+ Microcytosis 0 Macrocytosis 1+ Sodium 135 L Potassium 3.7 Chloride 98 Carbon Dioxide 21 Anion Gap 16 BUN 9 Creatinine 0.8 Creat Clearance w eGFR > 60 Random Glucose 147 H Calcium 8.4 L Phosphorus 2.7 D Magnesium 0.9 L D Total Bilirubin 1.7 H Direct Bilirubin AST 139 H D ALT 160 H D Alkaline Phosphatase 159 H D Total Protein 6.1 L Albumin 3.1 L Hepatitis A IgM Ab Negative Hep Bs Antigen Negative Hep B Core IgM Ab Negative Hepatitis C Antibody 0.2 06/05/18 06/05/18 06:20 06:20 WBC 21.0 H RBC 4.43 Hgb 13.7 Hct 40.8 MCV 92.1 MCH 31.0 MCHC 33.6 RDW 13.9 Plt Count 156 D MPV 9.4 D Absolute Neuts (auto) 18.8 H Neutrophils % 89.7 H Neutrophils % (Manual) Band Neutrophils % Lymphocytes % 6.2 L D Lymphocytes % (Manual) Monocytes % 3.8 Monocytes % (Manual) Eosinophils % 0.2 D Eosinophils % (Manual) Basophils % 0.1 Basophils % (Manual) Myelocytes % (Man) Promyelocytes % (Man) Blast Cells % (Manual) Nucleated RBC % 0 Metamyelocytes Hypochromia Platelet Estimate Polychromasia Poikilocytosis Anisocytosis Microcytosis Macrocytosis Sodium 134 L Potassium 3.9 Chloride 97 L Carbon Dioxide 28 D Anion Gap 9 BUN 10 Creatinine 0.5 L Creat Clearance w eGFR > 60 Random Glucose 112 H D Calcium 8.0 L Phosphorus 1.8 L D Magnesium 1.7 L D Total Bilirubin 2.1 H Direct Bilirubin 0.8 H AST 66 H D ALT 86 H D Alkaline Phosphatase 112 D Total Protein 5.3 L Albumin 2.5 L Hepatitis A IgM Ab Hep Bs Antigen Hep B Core IgM Ab Hepatitis C Antibody ASSESSMENT AND PLAN: 32yo M with PMH HTN and continuous polysusbtance abuse presented to the ER from [facility] after witnessed fall from a chair and c/o abdominal pain, while awaiting admission to inpatient detox -Acute alcoholic pancreatitis with abdominal and pelvic ascitis -Abnormal LFTs, suspect acute alcoholic hepatitis, r/o viral etiology, low suspicion for obstructive process -SIRS, likely from pancreatitis -Mechanical fall -Severe hypomagnesemia -Hypophosphatemia -Remote opioid abuse/methadone dependence -HTN Plan: Abdomen distended and tender. Will change to NPO. At risk for complications. Serial abdominal exams and close monitoring. Abdominal Xray today. Repeat CT A/P in 24-48 hours if fails to improve. Surgery/GI consult. May need to address US guided paracentesis based on clinical course and repeat imaging. IVF at 150 ml/hr. Transaminases improved, winter rising.Coags noted. Abdominal US/CT A/P noted. Hep panel neg. Repeat TG levels noted. Librium protocol, detox consult. Continue methadone. Replete Mg/phos. Place on standing Mg oxide x 3 days. Hold HCTZ. Continue norvasc Lovenox dvTPPX with close monitoring of platelets. Dispo likely to [facility] when clinically improved. Plan discussed with patient in detail, all questions answered.
[2018-06-05] MEDS ORDERED: SODIUM PHOSPHATE - 30 MM in DEXTROSE 5%-WATER - 500 ML IVPB ONE (08:30)
[2018-06-05] MEDS ORDERED: MAGNESIUM SULF 50% (8.12 MEQ/2 ML-1 GM VIAL) IVPB ONE (08:30)
[2018-06-05] MEDS ORDERED: METHADONE HCL 10 MG TABLET PO ONE (08:36)
--- NOTE | 2018-06-05 08:50 | PN ---
Physical Exam: SUBJECTIVE: Patient seen and examined this AM. He states that he still had a few episodes of bilious vomiting overnight, though overall he feels much better than yesterday. He is less anxious during the conversation and laying in bed comfortably OBJECTIVE: Vital Signs Period Temp Pulse Resp BP Sys/Kim Pulse Ox Last 24 Hr 98.4 F-99.8 F 98-148 20-24 139-160/71-118 99-99 GENERAL: A&O, anxious and in moderate distress HEAD: Normocephalic, atraumatic. EYES: PERRL, no scleral icterus EARS, NOSE, THROAT: oropharynx clear without exudates. Moist mucous membranes. NECK: supple without lymphadenopathy LUNGS: CTA b/l, no crackles or wheezes HEART: Tachycardic in the 120s, regular rhythm, normal S1 and S2 without murmur ABDOMEN: Firm possibly secondary to pt not relaxing, tender to palpation worst in epigastric region, normoactive bowel sounds MUSCULOSKELETAL: No bony deformities or tenderness. EXTREMITIES: 2+ pulses, warm, well-perfused. No peripheral edema. NEUROLOGICAL: Cranial nerves II-XII grossly intact. Tremulous though much improved from yesterday PSYCHIATRIC: Anxiety improved from yesterday SKIN: Warm, dry, no rashes or lesions noted Laboratory Results - last 24 hr 06/03/18 06/04/18 06/05/18 16:35 07:00 06:20 WBC 21.0 H RBC 4.43 Hgb 13.7 Hct 40.8 MCV 92.1 MCH 31.0 MCHC 33.6 RDW 13.9 Plt Count 156 D MPV 9.4 D Absolute Neuts (auto) 18.8 H Neutrophils % 89.7 H Neutrophils % (Manual) 94.8 H Band Neutrophils % 1.0 Lymphocytes % 6.2 L D Lymphocytes % (Manual) 2.1 L Monocytes % 3.8 Monocytes % (Manual) 2 L Eosinophils % 0.2 D Eosinophils % (Manual) 0.0 Basophils % 0.1 Basophils % (Manual) 0.0 Myelocytes % (Man) 0 Promyelocytes % (Man) 0 Blast Cells % (Manual) 0 Nucleated RBC % 0 Metamyelocytes 0 Hypochromia 0 Platelet Estimate Normal Polychromasia 0 Poikilocytosis 1+ Anisocytosis 1+ Microcytosis 0 Macrocytosis 1+ Sodium Potassium Chloride Carbon Dioxide Anion Gap BUN Creatinine Creat Clearance w eGFR Random Glucose Calcium Phosphorus Magnesium Total Bilirubin Direct Bilirubin AST ALT Alkaline Phosphatase Total Protein Albumin Hepatitis A IgM Ab Negative Hep Bs Antigen Negative Hep B Core IgM Ab Negative Hepatitis C Antibody 0.2 06/05/18 06:20 WBC RBC Hgb Hct MCV MCH MCHC RDW Plt Count MPV Absolute Neuts (auto) Neutrophils % Neutrophils % (Manual) Band Neutrophils % Lymphocytes % Lymphocytes % (Manual) Monocytes % Monocytes % (Manual) Eosinophils % Eosinophils % (Manual) Basophils % Basophils % (Manual) Myelocytes % (Man) Promyelocytes % (Man) Blast Cells % (Manual) Nucleated RBC % Metamyelocytes Hypochromia Platelet Estimate Polychromasia Poikilocytosis Anisocytosis Microcytosis Macrocytosis Sodium 134 L Potassium 3.9 Chloride 97 L Carbon Dioxide 28 D Anion Gap 9 BUN 10 Creatinine 0.5 L Creat Clearance w eGFR > 60 Random Glucose 112 H D Calcium 8.0 L Phosphorus 1.8 L D Magnesium 1.7 L D Total Bilirubin 2.1 H Direct Bilirubin 0.8 H AST 66 H D ALT 86 H D Alkaline Phosphatase 112 D Total Protein 5.3 L Albumin 2.5 L Hepatitis A IgM Ab Hep Bs Antigen Hep B Core IgM Ab Hepatitis C Antibody Active Medications Generic Name Dose Route Start Last Admin Trade Name Freq PRN Reason Stop Dose Admin Albuterol Sulfate 2 puff 06/04/18 03:34 Ventolin Hfa Inhaler - IH Q4H PRN SHORT OF BREATH/WHEEZING Amlodipine Besylate 10 mg 06/04/18 10:00 06/04/18 10:49 Norvasc - PO 10 mg DAILY AUDIE Administration Chlordiazepoxide HCl 25 mg 06/05/18 11:00 Librium - PO 06/06/18 05:01 [id number] AUDIE Chlordiazepoxide HCl 15 mg 06/06/18 11:00 Librium - PO 06/07/18 05:01 [id number] AUDIE Chlordiazepoxide HCl 10 mg 06/07/18 11:00 Librium - PO 06/08/18 05:01 [id number] AUDIE Chlordiazepoxide HCl 50 mg 06/04/18 18:06 06/05/18 06:27 Librium - PO 50 mg Q6H PRN Administration WITHDRAWAL(CONT SUBST) Enoxaparin Sodium 40 mg 06/05/18 10:00 Lovenox - SQ DAILY AUDIE Lactated Ringer's 1,000 ml in 1,000 mls @ 125 mls/hr 06/05/18 08:06 06/05/18 08:41 Lactated Ringers Solution IV 125 mls/hr ASDIR AUDIE Administration Sodium Phosphate 30 mm/ 510 mls @ 62.5 mls/hr 06/05/18 08:30 Dextrose IVPB 06/05/18 16:39 ONCE ONE Magnesium Oxide 800 mg 06/05/18 10:00 Mag-Ox - PO 06/08/18 09:59 DAILY AUDIE Methadone HCl 120 mg 06/05/18 08:45 Dolophine - PO DAILY@0600 AUDIE Nicotine Polacrilex 2 mg 06/05/18 01:51 06/05/18 02:07 Nicorette Gum - BUC 2 mg Q2H PRN Administration NICOTINE REPLACEMENT RX Thiamine HCl 100 mg 06/04/18 10:00 06/04/18 10:49 Vitamin B1 - PO 100 mg DAILY AUDIE Administration ASSESSMENT/PLAN: 32 yo Male was admitted from [facility] s/p witnessed fall from chair while awaiting admission for Detox from alcohol, also found to have Acute Pancreatitis. Acute Pancreatitis -Pt with epigastric pain, n/v, Lipase of 3900, CT noted with signs of acute pancreatitis -RUQ u/s noted without gallstones or CBD dilatation, LFTs improving -LR @ 250 cc/hr decreased to 125 cc/hr -Repeat Triglycerides trending down -Not tolerating clear liquids, made NPO for now, willl reasses in AM -Morphine D/c due to worsening nausea, vomiting -Will trial Demerol 25 mg IV once for pain control and reassess Withdrawal symptoms, likely secondary to alcohol withdrawal though pt noted on methadone maintenance with verified 120 mg dose daily -Pt is actively withdrawing from alcohol, CIWA improving from yesterday -Initially complaining of hallucinations, which would support alcohol withdrawal over opiod, pt also has been taking methadone consistently -Given ativan overnight due to agitation -Converted to Librium taper protocol, pt is currently requiring PRN dose in addition to taper, will continue to reevaluate for need to prolong or increase taper Meets SIRS criteria -Pt was tachycardic in 120s with WBC improving -Likely secondary to Acute Pancreatitis, very unlikely infectious at this time -Will hold off on Abx for now S/P witnessed Fall with head trauma -Likely secondary to alcohol intoxication -No visible trauma to the head -CT Head negative for bleed or fracture -CT Cervical Spine negative for fracture or subluxation HTN -Norvasc 10mg PO Daily -Home dose of HCTZ held due to electrolyte abnormalities DVT Prophylaxis -Lovenox 40 mg SQ Daily FEN -Fluids: LR @ 150 cc/hr -Electrolytes: Mg 1.7, Phos 1.9, Repleting, BMP in AM -Nutrition: NPO Disposition Med/Surg Visit type - Emergency Visit Emergency Visit: Yes ED Registration Date: 06/03/18 Care time: The patient presented to the Emergency Department on the above date and was hospitalized for further evaluation of their emergent condition. - New Patient This patient is new to me today: No - Critical Care Critical Care patient: No
[2018-06-05 09:06] LABS: INR 1.2 (0.83-1.09); PROTHROMBIN TIME (PATIENT) 13.6 SEC (9.7-13.0)
[2018-06-05 10:18] LABS: ANISOCYTOSIS 1+; MACROCYTOSIS 1+
[2018-06-05] MEDS: METHADONE HCL 40 MG DISPERSABLE TABLET PO SCH (10:49)
[2018-06-05] MEDS: MAGNESIUM OXIDE 400 MG TABLET (FP) PO SCH (10:50)
[2018-06-05] MEDS: amLODIPine BESYLATE 10 MG TABLET (FP) PO SCH (10:50)
[2018-06-05] MEDS: THIAMINE HCL 100 MG TABLET (FP) PO SCH (10:50)
[2018-06-05] MEDS: ENOXAPARIN NA (PORCINE) 40 MG/0.4 ML DISP.SYRIN SQ SCH (10:53)
[2018-06-05 10:57] LABS: PLATELET ESTIMATE ADEQUATE
[2018-06-05] MEDS ORDERED: chlordiazePOXIDE HCL 25 MG CAPSULE PO SCH (11:00)
[2018-06-05] MEDS ORDERED: NAPH,MB-DB/K PH,MBDB POWDER PACKET PO SCH (11:00)
[2018-06-05] MEDS: LACTATED RINGERS SOLUTION 1,000 ML/1,000 ML INFUS.BAG IV SCH ×3 (11:45→23:36)
[2018-06-05] MEDS ORDERED: MEPERIDINE HCL CARPU-JECT 25 MG/1 ML DISP.SYRIN IVPUSH ONE (11:53)
[2018-06-05] MEDS ORDERED: NAPH,MB-DB/K PH,MBDB POWDER PACKET PO ONE (13:15)
--- NOTE | 2018-06-05 13:47 | CON.GI ---
Consult Consult Specialty:: GI: Dr. Burns covering for Dr. De León who resumes care Referred by:: Hospitalist Service Reason for Consultation:: Pancreatitis - History of Present Illness Chief Complaint: "My stomach hurt" History of Present Illness: 32M admitted through [facility] for evaluation of abdomoinal pain. The patient states that mid abdominal pain started earlier the day of his admission. In ER , triage vitals revealed T: 98 P: 94 BP: 165/106. Initial work-up included blood work revealing marked leukocytosis, AST: 254 ALT: 243 ALP: 207 TB: 0.6 Alb : 3.3. Lipase was 3898. Contrast CT scan was performed revealing abdominal ascites and changes c/w diffuse pancreatitis. Per the H&P the patient was started on 250CC per hour of lactated ringers (BISAP score 1, 2 germán's criteria on admission as LDH not performed at that time). It appears as though 1 L of NS was given in the ED. He continues to complain of abdominal pain. He vomited earlier in the day. He denies similar episoides in the past. He drinks 10 nips of alcohol per day and had a BAL of 400 on admission. 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 History of Recent Travel: No Home Medications - Allergies Allergies/Adverse Reactions: Allergies Allergy/AdvReac Type Severity Reaction Status Date / Time No Known Allergies Allergy Verified 06/03/18 15:29 - Home Medications Home Medications: Ambulatory Orders Methadone [Dolophine -] 120 mg PO DAILY 02/05/18 Albuterol Sulfate Inhaler - [Ventolin HFA Inhaler -] 2 puff IH Q4H PRN #1 inhaler 04/03/18 Amlodipine Besylate [Norvasc -] 10 mg PO DAILY #30 tablet 05/22/18 Hydrochlorothiazide [Hctz -] 25 mg PO DAILY #30 tablet 05/22/18 Family Disease History - Family Disease History Family Disease History: Other: Father (DEPENDENT ON ETOH AND DRUGS), Mother ( Alive: healthy), Brother (1, healthy), Sister (1, healthy), Son (1, healthy), Daughter (2, healthy) Other Family History: No family history of colorectal cancer / pancreatitis Review of Systems - Review of Systems Constitutional: denies: Unintentional Wgt. Loss Cardiovascular: denies: Chest Pain Respiratory: reports: Cough. denies: SOB Physical Exam-GI Vital Signs: Vitals:(13:42) T: 99.1 P: 126 R: 20 BP: 145/95 Constitutional: Yes: Calm Eyes: No: Sclera Icterus Cardiovascular: Yes: Tachycardia (regular rhythm) Respiratory: Yes: CTA Bilaterally Gastrointestinal Inspection: No: Distention ...Auscultate: Yes: Normoactive Bowel Sounds ...Palpate: Yes: Tenderness (Marked TTP mid abdomen) ...Percussion: Yes: Tympanitic (Mild tympany in mid abdomen) Edema: No (No LE edema) Neurological: Yes: Alert, Oriented, Tremors Labs: CBC, BMP 06/05/18 06:20 06/05/18 06:20 INR, PTT INR 1.20 (0.83-1.09) H 06/05/18 08:26 Hepatic Panel Total Bilirubin 2.1 mg/dL (0.2-1.0) H 06/05/18 06:20 Direct Bilirubin 0.8 mg/dL (0.0-0.2) H 06/05/18 06:20 AST 66 U/L (15-37) H D 06/05/18 06:20 ALT 86 U/L (12-78) H D 06/05/18 06:20 Alkaline Phosphatase 112 U/L (45-117) D 06/05/18 06:20 Albumin 2.5 g/dl (3.4-5.0) L 06/05/18 06:20 06/03/18 16:35 Hepatitis A IgM Ab Negative Hep Bs Antigen Negative Hep B Core IgM Ab Negative Hepatitis C Antibody 0.2 06/05/18 08:12 Triglycerides 241 H D Imaging - Results Cat Scan: Report Reviewed Ultrasound: Report Reviewed (Normal Gallbladder, no stones, normal caliber CBD) Problem List - Problems (1) Alcoholic pancreatitis Assessment/Plan: Alcoholic pancreatitis +/- concomitant alcoholic hepatitis and alcohol withdrawal BISAP score on admission 1 with 2 germán's criteria ( however LDH not performed on admission) Continue IV hydration. Unclear how long he was on 250cc per hour. Can increase to 200cc per hour while monitoring strict I's and O's NPO IV Analgesia per primary team If unable to tolerate PO in the next 2-3 days, consider placing enteral feeding tube for NG tube or post pyloric feeding I explained to Mr. Ellis that he is significantly ill and that pancreatitis / sequela of pancreatitis can lead to significant decrease in quality of life and even . I explained that if he continues to drink alcohol, there is a high likelihood that he will from complications of his alcoholism. I reenforced the need for complete alcohol abstinence. If no improvement clinically, consider transfer to monitored setting Check FUA to assess for ileus Code(s): K85.20 - ALCOHOL INDUCED ACUTE PANCREATITIS WITHOUT NECROSIS OR INFCT
--- NOTE | 2018-06-05 15:24 | CONSULT ---
Consult Detox [facility] Reason for Current Admission/Consult: alcohol use disorder - History History of Present Illness: Pt was d/c'd from [facility] detox/rehab at the end of April. Pt restarted drinking alcohol a few days later. Drinks about 10 small bottles (airplane size ) liquor a day. Says he drinks to forget about family troubles. Says he is risking losing his job if he continues to drink. Admitted with pancreatitis and continues with abd pain- a bit better today. - History Source History Provided By: Patient Limitations to Obtaining History: Other (pt sleeping) - Alcohol/Substance Use Hx Alcohol Use: Yes Hx Substance Use Treatment: Yes (methadone) - Past Medical History Cardio/Vascular: Yes: HTN Psych: Yes: Addictions (Alcoholism) - Past Surgical History Additional Surgical History: Drainage of neck abscess: sequela of dental infection CIWA Score - CIWA Score Nausea/Vomitin-Mild Nausea/No Vomiting Muscle Tremors: 3 Anxiety: 1-Mildly Anxious Agitation: 0-Normal Activity Paroxysmal Sweats: No Perspiration Orientation: 0-Oriented Tacttile Disturbances: 0-None Auditory Disturbances: 0-None Visual Disturbances: 0-None Headache: 0-None Present CIWA-Ar Total Score: 5 Assessment Plan - Diagnosis (1) Methadone maintenance therapy patient Status: Chronic - Plan Plan: Pt admitted with pancreatitis and increased alcohol level on admission. Pt on librium detox protocol with prn dosing. Pt with alcohol use disorder looking to stop alcohol use. Pt states he would like to be discharged to [facility] rehab when medically stable- please call [phone] -to arrange for this. Please call us back [phone] if I can be of further assistance. - Medication Detox Regimen/Protocol: Librium
[2018-06-05] MEDS: NAPH,MB-DB/K PH,MBDB POWDER PACKET PO SCH (22:40)
[2018-06-06] MEDS ORDERED: MELATONIN 5 MG TABLETS PO ONE ×3 (00:38→20:30)
[2018-06-06] MEDS ORDERED: KETOROLAC TROMETHAMINE 30 MG/1 ML VIAL IM ONE (00:38)
[2018-06-06] MEDS ORDERED: KETOROLAC TROMETHAMINE 30 MG/1 ML VIAL IVPUSH ONE (00:45)
[2018-06-06] MEDS: chlordiazePOXIDE HCL 25 MG CAPSULE PO SCH ×4 (05:42→22:25)
[2018-06-06] MEDS: METHADONE HCL 40 MG DISPERSABLE TABLET PO SCH (05:42)
[2018-06-06] MEDS: LACTATED RINGERS SOLUTION 1,000 ML/1,000 ML INFUS.BAG IV SCH ×2 (06:38→17:12)
[2018-06-06 07:06] LABS: BASO % 0.1 % (0-2.0); EOS % 0.4 % (0-4.5); HEMOGLOBIN 11.8 GM/dL (11.7-16.9); LYMPH % 12.7 % (8-40); MCH 31.6 pg (25.7-33.7); MCHC 33.6 g/dl (32.0-35.9); MEAN PLT VOLUME 9.2 fl (7.5-11.1); MONO % 4.8 % (3.8-10.2); PLATELET COUNT 120 K/MM3 (134-434); RBC 3.73 M/mm3 (4.00-5.60); RDW 13.8 % (11.9-15.9); WHITE BLOOD COUNT 11.6 K/mm3 (4.0-10.0)
[2018-06-06 07:13] LABS: INR 1.27 (0.83-1.09); PROTHROMBIN TIME (PATIENT) 14.4 SEC (9.7-13.0)
[2018-06-06 07:16] LABS: ACTIVATED PTT 27.5 SECONDS (25.2-36.5)
[2018-06-06 07:58] LABS: ALBUMIN 2.1 g/dl (3.4-5.0); ANION GAP 7 MMOL/L (8-16); BLOOD UREA NITROGEN 13 mg/dL (7-18); CALCIUM 7.6 mg/dL (8.5-10.1); CHLORIDE 96 mmol/L (98-107); CO2 31 mmol/L (21-32); GLUCOSE,RANDOM 91 mg/dL (74-106); MAGNESIUM 2.2 mg/dL (1.8-2.4); POTASSIUM 3.8 mmol/L (3.5-5.1); SODIUM 134 mmol/L (136-145)
[2018-06-06 07:59] LABS: BILIRUBIN,DIRECT 0.5 mg/dL (0.0-0.2)
[2018-06-06 08:01] LABS: ALK PHOS 93 U/L (45-117); BILIRUBIN,TOTAL 1.3 mg/dL (0.2-1.0); CREATININE 0.6 mg/dL (0.7-1.3); PHOSPHOROUS 2.7 mg/dL (2.5-4.9); SGOT/AST 42 U/L (15-37); SGPT/ALT 59 U/L (12-78); TOT PROT 5.2 g/dl (6.4-8.2)
--- NOTE | 2018-06-06 08:01 | PN ---
Teaching Attending Note Name of Resident: Lai Blue ATTENDING PHYSICIAN STATEMENT I saw and evaluated the patient. I reviewed the resident's note and discussed the case with the resident. I agree with the resident's findings and plan as documented with exceptions below. SUBJECTIVE: patient seen and examined. pain improved, hungry, asking to eat. Passing gas, no BM yet. NO nausea, vomitting. Tremors/anxiety improved. OBJECTIVE: Vital Signs Period Temp Pulse Resp BP Sys/Kim Pulse Ox Last 24 Hr 99.1 F-99.9 F 111-126 20-22 132-152/80-95 96-96 Intake & Output 06/03/18 06/04/18 06/05/18 06/06/18 23:59 23:59 23:59 23:59 Intake Total 4350 5630 1700 Output Total 400 Balance 4350 5230 1700 Weight 216 lb 216 lb General: sitting in bed in no acute distress Chest: few left basilar rales, good air entry Abdomen; distended, tenderness in epigastrium region, vague mild gabby-umbilical region (improved exam), horseshoe dullness, positive bowel sounds Extremities: tremors improved, no edema Active Medications Albuterol Sulfate (Ventolin Hfa Inhaler -) 2 puff IH Q4H PRN PRN Reason: SHORT OF BREATH/WHEEZING Amlodipine Besylate (Norvasc -) 10 mg PO DAILY [facility] Last Admin: 06/05/18 10:50 Dose: 10 mg Chlordiazepoxide HCl (Librium -) 25 mg PO [id number] [facility] Stop: 06/07/18 05:01 Chlordiazepoxide HCl (Librium -) 15 mg PO [id number] [facility] Stop: 06/08/18 05:01 Chlordiazepoxide HCl (Librium -) 25 mg PO Q4H PRN PRN Reason: WITHDRAWAL(CONT SUBST) Stop: 06/08/18 10:56 Last Admin: 06/05/18 20:11 Dose: 25 mg Chlordiazepoxide HCl (Librium -) 10 mg PO [id number] [facility] Stop: 06/09/18 05:01 Enoxaparin Sodium (Lovenox -) 40 mg SQ DAILY [facility] Last Admin: 06/05/18 10:53 Dose: 40 mg Lactated Ringer's (Lactated Ringers Solution) 1,000 ml in 1,000 mls @ 150 mls/ hr IV ASDIR [facility] Last Admin: 06/06/18 06:38 Dose: 150 mls/hr Ketorolac Tromethamine (Toradol Injection -) 15 mg IVPUSH Q6H PRN PRN Reason: PAIN LEVEL 6-10 Stop: 06/11/18 06:34 Magnesium Oxide (Mag-Ox -) 800 mg PO DAILY [facility] Stop: 06/08/18 09:59 Last Admin: 06/05/18 10:50 Dose: 800 mg Methadone HCl (Dolophine -) 120 mg PO DAILY@0600 [facility] Last Admin: 06/06/18 05:42 Dose: 120 mg Nicotine Polacrilex (Nicorette Gum -) 2 mg BUC Q2H PRN PRN Reason: NICOTINE REPLACEMENT RX Last Admin: 06/05/18 02:07 Dose: 2 mg Potassium Phos/Sodium Phos (Phos-Nak Packet -) 2 packet PO BID [facility] Stop: 06/06/18 22:01 Last Admin: 06/05/18 22:40 Dose: 2 packet Thiamine HCl (Vitamin B1 -) 100 mg PO DAILY [facility] Last Admin: 06/05/18 10:50 Dose: 100 mg Laboratory Results - last 24 hr 06/05/18 06/05/18 06/05/18 12:10 16:44 23:16 WBC RBC Hgb Hct MCV MCH MCHC RDW Plt Count MPV Absolute Neuts (auto) Neutrophils % Lymphocytes % Monocytes % Eosinophils % Basophils % Nucleated RBC % PT with INR INR PTT (Actin FS) Sodium Potassium Chloride Carbon Dioxide Anion Gap BUN Creatinine Creat Clearance w eGFR POC Glucometer 128 131 119 Random Glucose Calcium Phosphorus Magnesium Total Bilirubin Direct Bilirubin AST ALT Alkaline Phosphatase LD Total Total Protein Albumin Lipase 06/06/18 06/06/18 06/06/18 05:49 06:15 06:15 WBC 11.6 H RBC 3.73 L Hgb 11.8 Hct 35.0 L MCV 94.0 MCH 31.6 MCHC 33.6 RDW 13.8 Plt Count 120 L D MPV 9.2 Absolute Neuts (auto) 9.5 H Neutrophils % 82.0 Lymphocytes % 12.7 D Monocytes % 4.8 Eosinophils % 0.4 D Basophils % 0.1 Nucleated RBC % 0 PT with INR INR PTT (Actin FS) Sodium 134 L Potassium 3.8 Chloride 96 L Carbon Dioxide 31 Anion Gap 7 L BUN 13 Creatinine 0.6 L Creat Clearance w eGFR > 60 POC Glucometer 106 Random Glucose 91 Calcium 7.6 L Phosphorus 2.7 D Magnesium 2.2 D Total Bilirubin 1.3 H Direct Bilirubin AST 42 H D ALT 59 D Alkaline Phosphatase 93 D LD Total Total Protein 5.2 L Albumin 2.1 L Lipase 06/06/18 06/06/18 06:15 06:15 WBC RBC Hgb Hct MCV MCH MCHC RDW Plt Count MPV Absolute Neuts (auto) Neutrophils % Lymphocytes % Monocytes % Eosinophils % Basophils % Nucleated RBC % PT with INR 14.40 H INR 1.27 H PTT (Actin FS) 27.5 Sodium Potassium Chloride Carbon Dioxide Anion Gap BUN Creatinine Creat Clearance w eGFR POC Glucometer Random Glucose Calcium Phosphorus Magnesium Total Bilirubin Direct Bilirubin 0.5 H D AST ALT Alkaline Phosphatase LD Total 339 H Total Protein Albumin Lipase 312 ASSESSMENT AND PLAN: 32yo M with PMH HTN and continuous polysusbtance abuse presented to the ER from [facility] after witnessed fall from a chair and c/o abdominal pain, while awaiting admission to inpatient detox -Acute alcoholic pancreatitis with abdominal and pelvic ascitis -Abnormal LFTs, suspect acute alcoholic hepatitis, r/o viral etiology, low suspicion for obstructive process -SIRS, likely from pancreatitis -anemia, suspect dehydrated on admission, now dilutional from aggressive hydration, low suspicion for bleed. -Thrombocytopenia, dilutional +/- acute alcohol ingestion -Mechanical fall -Severe hypomagnesemia -Hypophosphatemia -Remote opioid abuse/methadone dependence -HTN Plan: Advance to clears. Repeat Abdominal US to assess ascitis. Diagnostic/therapeutic paracentesis accordingly. GI input noted. Surgery consulted. Serial exams. IVF at 150 ml/hr. Transaminases improved, winter rising.Coags noted. Abdominal US/CT A/P noted. Hep panel neg. Repeat TG levels noted. Librium protocol, detox consult. Continue methadone. Replete Mg/phos prn. Standing Mg oxide day 2/3 Drop on all CBC markers suggestive of dilutional component. Check FOBT, trend for now. Iron panel. Hold HCTZ. Continue norvasc Lovenox [id number] with close monitoring of platelets. Dispo likely to [facility] when clinically improved. Plan discussed with patient in detail, all questions answered.
[2018-06-06] MEDS ORDERED: PT OWN MED DRAWER 7, Y5N ONE (08:29)
[2018-06-06] MEDS: chlordiazePOXIDE HCL 25 MG CAPSULE PO PRN (08:37)
--- NOTE | 2018-06-06 09:02 | PN ---
Physical Exam: SUBJECTIVE: Patient seen and examined this AM. He states he was much better overnight than the night before. States the toradol helped his pain. He endorses flatus last night. He denies any vomiting overnight and says that he is very hungry again at this point and is requesting to try some jello or oatmeal again. OBJECTIVE: Vital Signs Period Temp Pulse Resp BP Sys/Kim Pulse Ox Last 24 Hr 99.1 F-99.9 F 111-126 20-22 132-152/80-95 96 GENERAL: A&O, in no acute distress this AM HEAD: Normocephalic, atraumatic. EYES: PERRL, no scleral icterus EARS, NOSE, THROAT: oropharynx clear without exudates. Moist mucous membranes. NECK: supple without lymphadenopathy LUNGS: CTA b/l, no crackles or wheezes HEART: Tachycardia is improved today, regular rhythm, normal S1 and S2 without murmur ABDOMEN: Firm, tender to palpation worst in epigastric region though improving, hypoactive bowel sounds MUSCULOSKELETAL: No bony deformities or tenderness. EXTREMITIES: 2+ pulses, warm, well-perfused. No peripheral edema. NEUROLOGICAL: Cranial nerves II-XII grossly intact. Less tremulous PSYCHIATRIC: Anxiety improved from yesterday SKIN: Warm, dry, no rashes or lesions noted Laboratory Results - last 24 hr 06/05/18 06/05/18 06/05/18 06:20 08:12 08:26 WBC RBC Hgb Hct MCV MCH MCHC RDW Plt Count MPV Absolute Neuts (auto) Neutrophils % Neutrophils % (Manual) 90.8 H Band Neutrophils % 3.1 Lymphocytes % Lymphocytes % (Manual) 5.1 L D Monocytes % Monocytes % (Manual) 1 L Eosinophils % Eosinophils % (Manual) 0.0 Basophils % Basophils % (Manual) 0.0 Myelocytes % (Man) 0 Promyelocytes % (Man) 0 Blast Cells % (Manual) 0 Nucleated RBC % Metamyelocytes 0 Hypochromia 0 Platelet Estimate Adequate Polychromasia 0 Poikilocytosis 0 Anisocytosis 1+ Microcytosis 0 Macrocytosis 1+ PT with INR 13.60 H INR 1.20 H PTT (Actin FS) Sodium Potassium Chloride Carbon Dioxide Anion Gap BUN Creatinine Creat Clearance w eGFR POC Glucometer Random Glucose Calcium Phosphorus Magnesium Total Bilirubin Direct Bilirubin AST ALT Alkaline Phosphatase LD Total Total Protein Albumin Triglycerides 241 H D Lipase 06/05/18 06/05/18 06/05/18 12:10 16:44 23:16 WBC RBC Hgb Hct MCV MCH MCHC RDW Plt Count MPV Absolute Neuts (auto) Neutrophils % Neutrophils % (Manual) Band Neutrophils % Lymphocytes % Lymphocytes % (Manual) Monocytes % Monocytes % (Manual) Eosinophils % Eosinophils % (Manual) Basophils % Basophils % (Manual) Myelocytes % (Man) Promyelocytes % (Man) Blast Cells % (Manual) Nucleated RBC % Metamyelocytes Hypochromia Platelet Estimate Polychromasia Poikilocytosis Anisocytosis Microcytosis Macrocytosis PT with INR INR PTT (Actin FS) Sodium Potassium Chloride Carbon Dioxide Anion Gap BUN Creatinine Creat Clearance w eGFR POC Glucometer 128 131 119 Random Glucose Calcium Phosphorus Magnesium Total Bilirubin Direct Bilirubin AST ALT Alkaline Phosphatase LD Total Total Protein Albumin Triglycerides Lipase 06/06/18 06/06/18 06/06/18 05:49 06:15 06:15 WBC 11.6 H RBC 3.73 L Hgb 11.8 Hct 35.0 L MCV 94.0 MCH 31.6 MCHC 33.6 RDW 13.8 Plt Count 120 L D MPV 9.2 Absolute Neuts (auto) 9.5 H Neutrophils % 82.0 Neutrophils % (Manual) Band Neutrophils % Lymphocytes % 12.7 D Lymphocytes % (Manual) Monocytes % 4.8 Monocytes % (Manual) Eosinophils % 0.4 D Eosinophils % (Manual) Basophils % 0.1 Basophils % (Manual) Myelocytes % (Man) Promyelocytes % (Man) Blast Cells % (Manual) Nucleated RBC % 0 Metamyelocytes Hypochromia Platelet Estimate Polychromasia Poikilocytosis Anisocytosis Microcytosis Macrocytosis PT with INR INR PTT (Actin FS) Sodium 134 L Potassium 3.8 Chloride 96 L Carbon Dioxide 31 Anion Gap 7 L BUN 13 Creatinine 0.6 L Creat Clearance w eGFR > 60 POC Glucometer 106 Random Glucose 91 Calcium 7.6 L Phosphorus 2.7 D Magnesium 2.2 D Total Bilirubin 1.3 H Direct Bilirubin AST 42 H D ALT 59 D Alkaline Phosphatase 93 D LD Total Total Protein 5.2 L Albumin 2.1 L Triglycerides Lipase 06/06/18 06/06/18 06:15 06:15 WBC RBC Hgb Hct MCV MCH MCHC RDW Plt Count MPV Absolute Neuts (auto) Neutrophils % Neutrophils % (Manual) Band Neutrophils % Lymphocytes % Lymphocytes % (Manual) Monocytes % Monocytes % (Manual) Eosinophils % Eosinophils % (Manual) Basophils % Basophils % (Manual) Myelocytes % (Man) Promyelocytes % (Man) Blast Cells % (Manual) Nucleated RBC % Metamyelocytes Hypochromia Platelet Estimate Polychromasia Poikilocytosis Anisocytosis Microcytosis Macrocytosis PT with INR 14.40 H INR 1.27 H PTT (Actin FS) 27.5 Sodium Potassium Chloride Carbon Dioxide Anion Gap BUN Creatinine Creat Clearance w eGFR POC Glucometer Random Glucose Calcium Phosphorus Magnesium Total Bilirubin Direct Bilirubin 0.5 H D AST ALT Alkaline Phosphatase LD Total 339 H Total Protein Albumin Triglycerides Lipase 312 Active Medications Generic Name Dose Route Start Last Admin Trade Name Freq PRN Reason Stop Dose Admin Albuterol Sulfate 2 puff 06/04/18 03:34 Ventolin Hfa Inhaler - IH Q4H PRN SHORT OF BREATH/WHEEZING Amlodipine Besylate 10 mg 06/04/18 10:00 06/05/18 10:50 Norvasc - PO 10 mg DAILY AUDIE Administration Chlordiazepoxide HCl 25 mg 06/06/18 11:00 Librium - PO 06/07/18 05:01 [id number] AUDIE Chlordiazepoxide HCl 15 mg 06/07/18 11:00 Librium - PO 06/08/18 05:01 [id number] AUDIE Chlordiazepoxide HCl 25 mg 06/05/18 10:57 06/06/18 08:37 Librium - PO 06/08/18 10:56 25 mg Q4H PRN Administration WITHDRAWAL(CONT SUBST) Chlordiazepoxide HCl 10 mg 06/08/18 11:00 Librium - PO 06/09/18 05:01 [id number] AUDIE Enoxaparin Sodium 40 mg 06/05/18 10:00 06/05/18 10:53 Lovenox - SQ 40 mg DAILY AUDIE Administration Lactated Ringer's 1,000 ml in 1,000 mls @ 150 mls/hr 06/05/18 10:57 06/06/18 06:38 Lactated Ringers Solution IV 150 mls/hr ASDIR AUDIE Administration Ketorolac Tromethamine 15 mg 06/06/18 06:35 Toradol Injection - IVPUSH 06/11/18 06:34 Q6H PRN PAIN LEVEL 6-10 Magnesium Oxide 800 mg 06/05/18 10:00 06/05/18 10:50 Mag-Ox - PO 06/08/18 09:59 800 mg DAILY AUDIE Administration Methadone HCl 120 mg 06/05/18 08:45 06/06/18 05:42 Dolophine - PO 120 mg DAILY@0600 AUDIE Administration Nicotine Polacrilex 2 mg 06/05/18 01:51 06/05/18 02:07 Nicorette Gum - BUC 2 mg Q2H PRN Administration NICOTINE REPLACEMENT RX Potassium Phos/Sodium Phos 2 packet 06/05/18 11:32 06/05/18 22:40 Phos-Nak Packet - PO 06/06/18 22:01 2 packet BID AUDIE Administration Thiamine HCl 100 mg 06/04/18 10:00 06/05/18 10:50 Vitamin B1 - PO 100 mg DAILY AUDIE Administration ASSESSMENT/PLAN: 32 yo Male was admitted from [facility] s/p witnessed fall from chair while awaiting admission for Detox from alcohol, also found to have Acute Pancreatitis. Acute Pancreatitis -Pt with epigastric pain, n/v, Lipase of 3900 (resolved), CT noted with signs of acute pancreatitis -RUQ u/s noted without gallstones or CBD dilatation, LFTs almost completely resolved -LR @ 150 cc/hr -Complaining of being very hungry, retry clear liquids which seem to be tolerated -Morphine D/c due to worsening nausea, vomiting -Toradol 15 mg IV Q6 PRN -Abdominal distention - could be secondary to mild ileus Pt reported flatus last night, though no b.m. since admission Abdominal U/S negative for ascites, b/l pleural effusions (no complaint of SOB or cough) Surgical consult ordered Withdrawal symptoms, likely secondary to alcohol withdrawal though pt noted on methadone maintenance with verified 120 mg dose daily -Pt is actively withdrawing from alcohol, CIWA improving each day -Initially complaining of hallucinations, which would support alcohol withdrawal over opiod, pt also has been taking methadone consistently -Did not require ativan overnight -Librium taper protocol, pt is currently requiring PRN dose in addition to taper , will continue to reevaluate for need to prolong or increase taper SIRS -Pt was tachycardic in 120s on admission though improved with WBC now below 12 -Likely secondary to Acute Pancreatitis, very unlikely infectious at this time -Will hold off on Abx for now S/P witnessed Fall with head trauma -Likely secondary to alcohol intoxication -No visible trauma to the head -CT Head negative for bleed or fracture -CT Cervical Spine negative for fracture or subluxation HTN -Norvasc 10mg PO Daily -Home dose of HCTZ held due to electrolyte abnormalities DVT Prophylaxis -Lovenox 40 mg SQ Daily FEN -Fluids: LR @ 150 cc/hr -Electrolytes: No electrolyte abnormalities, CMP in AM -Nutrition: Clear liquids Disposition Med/Surg Visit type - Emergency Visit Emergency Visit: Yes ED Registration Date: 06/03/18 Care time: The patient presented to the Emergency Department on the above date and was hospitalized for further evaluation of their emergent condition. - New Patient This patient is new to me today: No - Critical Care Critical Care patient: No
[2018-06-06] MEDS: ENOXAPARIN NA (PORCINE) 40 MG/0.4 ML DISP.SYRIN SQ SCH (09:50)
[2018-06-06] MEDS: amLODIPine BESYLATE 10 MG TABLET (FP) PO SCH (09:51)
[2018-06-06] MEDS: NAPH,MB-DB/K PH,MBDB POWDER PACKET PO SCH ×2 (09:52→21:27)
[2018-06-06] MEDS: MAGNESIUM OXIDE 400 MG TABLET (FP) PO SCH (09:52)
[2018-06-06] MEDS: THIAMINE HCL 100 MG TABLET (FP) PO SCH (09:52)
[2018-06-06] MEDS: KETOROLAC TROMETHAMINE 15 MG/ML VIAL IVPUSH PRN ×3 (09:54→23:23)
[2018-06-06] MEDS ORDERED: chlordiazePOXIDE 5 MG CAPSULE PO SCH (11:00)
--- NOTE | 2018-06-06 15:08 | PN ---
Progress Note (short form) - Note Progress Note: surgery- chart reviewed 30m without gallstones, heavy drinker, presents with pancreatitis and ascites. Pt being fed by medical team. No cholecystectomy indicated as this is not biliary panreatitis. If concern for necrotizing pancreatitis (not seen on CT iv contrast) requiring surgical debridement... would suggest transfer to tertiary care center as that is not handled in a community [facility].
--- NOTE | 2018-06-06 15:53 | PN ---
Progress Note (short form) - Note Progress Note: Tolerating clears. Feels tired, but pain-free. Reports no nausea, vomiting, diarrhea. Abdomen soft, distended, non-tender, pos. bowel sounds. Labs reviewed , as below. Would continue current care. PO hydration and PPI. D/c ETOH was discussed with the patient who appeared to acknowledge heavy drinking problem and is motivated to stop. Laboratory Tests 06/03/18 06/03/18 06/03/18 15:45 15:45 15:45 WBC 18.9 H RBC 5.30 Hgb 16.6 Hct 49.1 H D MCV 92.8 MCH 31.3 MCHC 33.7 RDW 14.1 Plt Count 326 MPV 8.1 Absolute Neuts (auto) Neutrophils % Neutrophils % (Manual) Band Neutrophils % Lymphocytes % Lymphocytes % (Manual) Monocytes % Monocytes % (Manual) Eosinophils % Eosinophils % (Manual) Basophils % Basophils % (Manual) Myelocytes % (Man) Promyelocytes % (Man) Blast Cells % (Manual) Nucleated RBC % Metamyelocytes Hypochromia Platelet Estimate Polychromasia Poikilocytosis Anisocytosis Microcytosis Macrocytosis PT with INR INR PTT (Actin FS) Sodium 135 L Potassium 3.9 Chloride 98 Carbon Dioxide 25 Anion Gap 12 BUN 13 Creatinine 0.7 Creat Clearance w eGFR > 60 POC Glucometer Random Glucose 167 H D Serum Osmolality Calcium 8.1 L Phosphorus Magnesium Total Bilirubin 0.6 Direct Bilirubin AST 254 H D ALT 243 H D Alkaline Phosphatase 207 H D LD Total Total Protein 7.1 Albumin 3.3 L Triglycerides Lipase Salicylates Acetaminophen Alcohol, Quantitative 413.5 H* Hepatitis A IgM Ab Hep Bs Antigen Hep B Core IgM Ab Hepatitis C Antibody 06/03/18 06/03/18 06/03/18 15:45 16:20 16:35 WBC RBC Hgb Hct MCV MCH MCHC RDW Plt Count MPV Absolute Neuts (auto) Neutrophils % Neutrophils % (Manual) Band Neutrophils % Lymphocytes % Lymphocytes % (Manual) Monocytes % Monocytes % (Manual) Eosinophils % Eosinophils % (Manual) Basophils % Basophils % (Manual) Myelocytes % (Man) Promyelocytes % (Man) Blast Cells % (Manual) Nucleated RBC % Metamyelocytes Hypochromia Platelet Estimate Polychromasia Poikilocytosis Anisocytosis Microcytosis Macrocytosis PT with INR INR PTT (Actin FS) Sodium Potassium Chloride Carbon Dioxide Anion Gap BUN Creatinine Creat Clearance w eGFR POC Glucometer Random Glucose Serum Osmolality 422 H Calcium Phosphorus Magnesium Total Bilirubin Direct Bilirubin AST ALT Alkaline Phosphatase LD Total Total Protein Albumin Triglycerides Lipase 3898 H Salicylates < 4.0 Acetaminophen < 2.0 Alcohol, Quantitative Hepatitis A IgM Ab Hep Bs Antigen Hep B Core IgM Ab Hepatitis C Antibody 06/03/18 06/03/18 06/03/18 16:35 18:30 21:33 WBC RBC Hgb Hct MCV MCH MCHC RDW Plt Count MPV Absolute Neuts (auto) Neutrophils % Neutrophils % (Manual) Band Neutrophils % Lymphocytes % Lymphocytes % (Manual) Monocytes % Monocytes % (Manual) Eosinophils % Eosinophils % (Manual) Basophils % Basophils % (Manual) Myelocytes % (Man) Promyelocytes % (Man) Blast Cells % (Manual) Nucleated RBC % Metamyelocytes Hypochromia Platelet Estimate Polychromasia Poikilocytosis Anisocytosis Microcytosis Macrocytosis PT with INR INR PTT (Actin FS) Sodium Potassium Chloride Carbon Dioxide Anion Gap BUN Creatinine Creat Clearance w eGFR POC Glucometer Random Glucose Serum Osmolality Calcium Phosphorus 3.7 Magnesium 1.6 L Total Bilirubin Direct Bilirubin AST ALT Alkaline Phosphatase LD Total Total Protein Albumin Triglycerides 442 H Lipase Salicylates Acetaminophen Alcohol, Quantitative Hepatitis A IgM Ab Negative Hep Bs Antigen Negative Hep B Core IgM Ab Negative Hepatitis C Antibody 0.2 06/04/18 06/04/18 06/05/18 07:00 07:00 06:20 WBC 27.8 H 21.0 H RBC 5.07 4.43 Hgb 15.9 13.7 Hct 46.2 40.8 MCV 91.1 92.1 MCH 31.3 31.0 MCHC 34.4 33.6 RDW 13.7 13.9 Plt Count 267 156 D MPV 8.5 9.4 D Absolute Neuts (auto) 25.5 H 18.8 H Neutrophils % 91.6 H 89.7 H Neutrophils % (Manual) 94.8 H 90.8 H Band Neutrophils % 1.0 3.1 Lymphocytes % 4.3 L 6.2 L D Lymphocytes % (Manual) 2.1 L 5.1 L D Monocytes % 4.0 3.8 Monocytes % (Manual) 2 L 1 L Eosinophils % 0.0 0.2 D Eosinophils % (Manual) 0.0 0.0 Basophils % 0.1 0.1 Basophils % (Manual) 0.0 0.0 Myelocytes % (Man) 0 0 Promyelocytes % (Man) 0 0 Blast Cells % (Manual) 0 0 Nucleated RBC % 0 0 Metamyelocytes 0 0 Hypochromia 0 0 Platelet Estimate Normal Adequate Polychromasia 0 0 Poikilocytosis 1+ 0 Anisocytosis 1+ 1+ Microcytosis 0 0 Macrocytosis 1+ 1+ PT with INR INR PTT (Actin FS) Sodium 135 L Potassium 3.7 Chloride 98 Carbon Dioxide 21 Anion Gap 16 BUN 9 Creatinine 0.8 Creat Clearance w eGFR > 60 POC Glucometer Random Glucose 147 H Serum Osmolality Calcium 8.4 L Phosphorus 2.7 D Magnesium 0.9 L D Total Bilirubin 1.7 H Direct Bilirubin AST 139 H D ALT 160 H D Alkaline Phosphatase 159 H D LD Total Total Protein 6.1 L Albumin 3.1 L Triglycerides Lipase Salicylates Acetaminophen Alcohol, Quantitative Hepatitis A IgM Ab Hep Bs Antigen Hep B Core IgM Ab Hepatitis C Antibody 06/05/18 06/05/18 06/05/18 06:20 08:12 08:26 WBC RBC Hgb Hct MCV MCH MCHC RDW Plt Count MPV Absolute Neuts (auto) Neutrophils % Neutrophils % (Manual) Band Neutrophils % Lymphocytes % Lymphocytes % (Manual) Monocytes % Monocytes % (Manual) Eosinophils % Eosinophils % (Manual) Basophils % Basophils % (Manual) Myelocytes % (Man) Promyelocytes % (Man) Blast Cells % (Manual) Nucleated RBC % Metamyelocytes Hypochromia Platelet Estimate Polychromasia Poikilocytosis Anisocytosis Microcytosis Macrocytosis PT with INR 13.60 H INR 1.20 H PTT (Actin FS) Sodium 134 L Potassium 3.9 Chloride 97 L Carbon Dioxide 28 D Anion Gap 9 BUN 10 Creatinine 0.5 L Creat Clearance w eGFR > 60 POC Glucometer Random Glucose 112 H D Serum Osmolality Calcium 8.0 L Phosphorus 1.8 L D Magnesium 1.7 L D Total Bilirubin 2.1 H Direct Bilirubin 0.8 H AST 66 H D ALT 86 H D Alkaline Phosphatase 112 D LD Total Total Protein 5.3 L Albumin 2.5 L Triglycerides 241 H D Lipase Salicylates Acetaminophen Alcohol, Quantitative Hepatitis A IgM Ab Hep Bs Antigen Hep B Core IgM Ab Hepatitis C Antibody 06/05/18 06/05/18 06/05/18 08:26 12:10 16:44 WBC RBC Hgb Hct MCV MCH MCHC RDW Plt Count MPV Absolute Neuts (auto) Neutrophils % Neutrophils % (Manual) Band Neutrophils % Lymphocytes % Lymphocytes % (Manual) Monocytes % Monocytes % (Manual) Eosinophils % Eosinophils % (Manual) Basophils % Basophils % (Manual) Myelocytes % (Man) Promyelocytes % (Man) Blast Cells % (Manual) Nucleated RBC % Metamyelocytes Hypochromia Platelet Estimate Polychromasia Poikilocytosis Anisocytosis Microcytosis Macrocytosis PT with INR INR PTT (Actin FS) 34.2 Sodium Potassium Chloride Carbon Dioxide Anion Gap BUN Creatinine Creat Clearance w eGFR POC Glucometer 128 131 Random Glucose Serum Osmolality Calcium Phosphorus Magnesium Total Bilirubin Direct Bilirubin AST ALT Alkaline Phosphatase LD Total Total Protein Albumin Triglycerides Lipase Salicylates Acetaminophen Alcohol, Quantitative Hepatitis A IgM Ab Hep Bs Antigen Hep B Core IgM Ab Hepatitis C Antibody 06/05/18 06/06/18 06/06/18 23:16 05:49 06:15 WBC 11.6 H RBC 3.73 L Hgb 11.8 Hct 35.0 L MCV 94.0 MCH 31.6 MCHC 33.6 RDW 13.8 Plt Count 120 L D MPV 9.2 Absolute Neuts (auto) 9.5 H Neutrophils % 82.0 Neutrophils % (Manual) Band Neutrophils % Lymphocytes % 12.7 D Lymphocytes % (Manual) Monocytes % 4.8 Monocytes % (Manual) Eosinophils % 0.4 D Eosinophils % (Manual) Basophils % 0.1 Basophils % (Manual) Myelocytes % (Man) Promyelocytes % (Man) Blast Cells % (Manual) Nucleated RBC % 0 Metamyelocytes Hypochromia Platelet Estimate Polychromasia Poikilocytosis Anisocytosis Microcytosis Macrocytosis PT with INR INR PTT (Actin FS) Sodium Potassium Chloride Carbon Dioxide Anion Gap BUN Creatinine Creat Clearance w eGFR POC Glucometer 119 106 Random Glucose Serum Osmolality Calcium Phosphorus Magnesium Total Bilirubin Direct Bilirubin AST ALT Alkaline Phosphatase LD Total Total Protein Albumin Triglycerides Lipase Salicylates Acetaminophen Alcohol, Quantitative Hepatitis A IgM Ab Hep Bs Antigen Hep B Core IgM Ab Hepatitis C Antibody 06/06/18 06/06/18 06/06/18 06:15 06:15 06:15 WBC RBC Hgb Hct MCV MCH MCHC RDW Plt Count MPV Absolute Neuts (auto) Neutrophils % Neutrophils % (Manual) Band Neutrophils % Lymphocytes % Lymphocytes % (Manual) Monocytes % Monocytes % (Manual) Eosinophils % Eosinophils % (Manual) Basophils % Basophils % (Manual) Myelocytes % (Man) Promyelocytes % (Man) Blast Cells % (Manual) Nucleated RBC % Metamyelocytes Hypochromia Platelet Estimate Polychromasia Poikilocytosis Anisocytosis Microcytosis Macrocytosis PT with INR 14.40 H INR 1.27 H PTT (Actin FS) 27.5 Sodium 134 L Potassium 3.8 Chloride 96 L Carbon Dioxide 31 Anion Gap 7 L BUN 13 Creatinine 0.6 L Creat Clearance w eGFR > 60 POC Glucometer Random Glucose 91 Serum Osmolality Calcium 7.6 L Phosphorus 2.7 D Magnesium 2.2 D Total Bilirubin 1.3 H Direct Bilirubin 0.5 H D AST 42 H D ALT 59 D Alkaline Phosphatase 93 D LD Total 339 H Total Protein 5.2 L Albumin 2.1 L Triglycerides Lipase 312 Salicylates Acetaminophen Alcohol, Quantitative Hepatitis A IgM Ab Hep Bs Antigen Hep B Core IgM Ab Hepatitis C Antibody Problem List - Problems (1) Alcohol dependence Code(s): F10.20 - ALCOHOL DEPENDENCE, UNCOMPLICATED (2) Alcohol intoxication Code(s): F10.929 - ALCOHOL USE, UNSPECIFIED WITH INTOXICATION, UNSPECIFIED Qualifiers: Complication of substance-induced condition: with unspecified complication Qualified Code(s): F10.929 - Alcohol use, unspecified with intoxication, unspecified (3) Alcoholic pancreatitis Code(s): K85.20 - ALCOHOL INDUCED ACUTE PANCREATITIS WITHOUT NECROSIS OR INFCT
[2018-06-07] MEDS ORDERED: PANTOPRAZOLE 40 MG TABLET (FP) PO ONE (01:50)
[2018-06-07] MEDS ORDERED: FAMOTIDINE 20 MG/50 ML IVPB 20 MG/50 ML MG IVPB ONE (01:50)
[2018-06-07] MEDS: chlordiazePOXIDE HCL 25 MG CAPSULE PO SCH (05:53)
[2018-06-07] MEDS: KETOROLAC TROMETHAMINE 15 MG/ML VIAL IVPUSH PRN ×4 (05:56→23:45)
[2018-06-07] MEDS: METHADONE HCL 40 MG DISPERSABLE TABLET PO SCH (06:38)
--- NOTE | 2018-06-07 07:30 | PN ---
Teaching Attending Note Name of Resident: Lai Blue ATTENDING PHYSICIAN STATEMENT I saw and evaluated the patient. I reviewed the resident's note and discussed the case with the resident. I agree with the resident's findings and plan as documented with exceptions below. SUBJECTIVE: Patient seen and examined. Abdominal pain almost resolved. Tolerated full liquid diet well this AM. had 2 BM yesterday with improvement. Anxiety/tremors improved. Wants to try solid food. OBJECTIVE: Vital Signs Period Temp Pulse Resp BP Sys/Kim Pulse Ox Last 24 Hr 98.3 F-99.7 F 94-110 20-22 127-154/66-92 94-95 Intake & Output 06/04/18 06/05/18 06/06/18 06/07/18 23:59 23:59 23:59 23:59 Intake Total 4350 5630 3300 1390 Output Total 400 Balance 4350 5230 3300 1390 Weight 216 lb General:lying in bed in no acute distress, looks better overall Chest: few basilar rales Abdomen: distended, softer, mild epigastric and gabby-umbilical tenderness, improved exam, positive bowel sounds Extremities: improved tremors, no edema Active Medications Albuterol Sulfate (Ventolin Hfa Inhaler -) 2 puff IH Q4H PRN PRN Reason: SHORT OF BREATH/WHEEZING Amlodipine Besylate (Norvasc -) 10 mg PO DAILY [facility] Last Admin: 06/06/18 09:51 Dose: 10 mg Chlordiazepoxide HCl (Librium -) 15 mg PO [id number] [facility] Stop: 06/08/18 05:01 Chlordiazepoxide HCl (Librium -) 25 mg PO Q4H PRN PRN Reason: WITHDRAWAL(CONT SUBST) Stop: 06/08/18 10:56 Last Admin: 06/06/18 08:37 Dose: 25 mg Chlordiazepoxide HCl (Librium -) 10 mg PO [id number] [facility] Stop: 06/09/18 05:01 Enoxaparin Sodium (Lovenox -) 40 mg SQ DAILY [facility] Last Admin: 06/06/18 09:50 Dose: 40 mg Lactated Ringer's (Lactated Ringers Solution) 1,000 ml in 1,000 mls @ 150 mls/ hr IV ASDIR [facility] Last Admin: 06/06/18 17:12 Dose: 150 mls/hr Ketorolac Tromethamine (Toradol Injection -) 15 mg IVPUSH Q6H PRN PRN Reason: PAIN LEVEL 6-10 Stop: 06/11/18 06:34 Last Admin: 06/07/18 05:56 Dose: 15 mg Magnesium Oxide (Mag-Ox -) 800 mg PO DAILY [facility] Stop: 06/08/18 09:59 Last Admin: 06/06/18 09:52 Dose: 800 mg Methadone HCl (Dolophine -) 120 mg PO DAILY@0600 [facility] Last Admin: 06/07/18 06:38 Dose: 120 mg Nicotine Polacrilex (Nicorette Gum -) 2 mg BUC Q2H PRN PRN Reason: NICOTINE REPLACEMENT RX Last Admin: 06/05/18 02:07 Dose: 2 mg Thiamine HCl (Vitamin B1 -) 100 mg PO DAILY [facility] Last Admin: 06/06/18 09:52 Dose: 100 mg Laboratory Results - last 24 hr 06/05/18 06/06/18 06/06/18 06:20 17:17 23:48 WBC RBC Hgb Hct MCV MCH MCHC RDW Plt Count MPV Absolute Neuts (auto) Neutrophils % Lymphocytes % Monocytes % Eosinophils % Basophils % Nucleated RBC % Sodium Potassium Chloride Carbon Dioxide Anion Gap BUN Creatinine Creat Clearance w eGFR POC Glucometer 161 159 Random Glucose Calcium Phosphorus Magnesium Ferritin Total Bilirubin AST ALT Alkaline Phosphatase Total Protein Albumin Bile Acids 11.1 Stool Occult Blood 06/07/18 06/07/18 06/07/18 00:01 05:59 06:30 WBC RBC Hgb Hct MCV MCH MCHC RDW Plt Count MPV Absolute Neuts (auto) Neutrophils % Lymphocytes % Monocytes % Eosinophils % Basophils % Nucleated RBC % Sodium 133 L Potassium 3.5 Chloride 95 L Carbon Dioxide 29 Anion Gap 9 BUN 12 Creatinine 0.5 L Creat Clearance w eGFR > 60 POC Glucometer 121 Random Glucose 102 Calcium 7.6 L Phosphorus 3.5 D Magnesium 2.2 Ferritin 594.8 H Total Bilirubin 1.1 H AST 28 ALT 48 Alkaline Phosphatase 89 Total Protein 5.4 L Albumin 2.2 L Bile Acids Stool Occult Blood Negative 06/07/18 06/07/18 06:30 06:30 WBC 9.7 RBC 3.24 L Hgb 10.6 L Hct 30.2 L MCV 93.2 MCH 32.8 MCHC 35.2 RDW 13.7 Plt Count 154 D MPV 9.3 Absolute Neuts (auto) 7.8 Neutrophils % 80.2 Lymphocytes % 10.2 Monocytes % 8.6 Eosinophils % 0.9 D Basophils % 0.1 Nucleated RBC % 0 Sodium Cancelled Potassium Cancelled Chloride Cancelled Carbon Dioxide Cancelled Anion Gap Cancelled BUN Cancelled Creatinine Cancelled Creat Clearance w eGFR Cancelled POC Glucometer Random Glucose Cancelled Calcium Cancelled Phosphorus Cancelled Magnesium Cancelled Ferritin Total Bilirubin Cancelled AST Cancelled ALT Cancelled Alkaline Phosphatase Cancelled Total Protein Cancelled Albumin Cancelled Bile Acids Stool Occult Blood ASSESSMENT AND PLAN: 32yo M with PMH HTN and continuous polysusbtance abuse presented to the ER from [facility] after witnessed fall from a chair and c/o abdominal pain, while awaiting admission to inpatient detox -Acute alcoholic pancreatitis with abdominal and pelvic ascitis -Abnormal LFTs, suspect acute alcoholic hepatitis, r/o viral etiology, low suspicion for obstructive process -SIRS, likely from pancreatitis -anemia, suspect dehydrated on admission, now dilutional from aggressive hydration, low suspicion for bleed. -Thrombocytopenia, dilutional +/- acute alcohol ingestion -Mechanical fall -Severe hypomagnesemia -Hypophosphatemia -Remote opioid abuse/methadone dependence -HTN Plan: Advance to solid diet. Repeat Abdominal US neg for ascitis. GI/surgery input noted. clinically improved. Change IVF to NS with 20 KCL, decrease to 75 ml/hr. Serial exams. LFTs normalized. Coags noted. Abdominal US/CT A/P noted. Hep panel neg. Repeat TG levels noted. Librium protocol, detox consult. d/c prn librium. Continue methadone. Replete Mg/phos prn. Standing Mg oxide day 3/3 Drop on all CBC markers suggestive of dilutional component. FOBT neg, follow up iron panel. Hold HCTZ. Continue norvasc Lovenox [id number] with close monitoring of platelets. Dispo likely to [facility] in 24 hours if continues to improve and tolerating diet well. Plan discussed with patient in detail, all questions answered.
[2018-06-07] MEDS ORDERED: chlordiazePOXIDE HCL 25 MG CAPSULE PO PRN (07:31)
[2018-06-07 07:50] LABS: BASO % 0.1 % (0-2.0); EOS % 0.9 % (0-4.5); HEMATOCRIT 30.2 % (35.4-49); HEMOGLOBIN 10.6 GM/dL (11.7-16.9); LYMPH % 10.2 % (8-40); MCH 32.8 pg (25.7-33.7); MCHC 35.2 g/dl (32.0-35.9); MEAN CELL VOLUME 93.2 fl (80-96); MEAN PLT VOLUME 9.3 fl (7.5-11.1); MONO % 8.6 % (3.8-10.2); NEUT % 80.2 % (42.8-82.8); PLATELET COUNT 154 K/MM3 (134-434); RBC 3.24 M/mm3 (4.00-5.60); RDW 13.7 % (11.9-15.9); WHITE BLOOD COUNT 9.7 K/mm3 (4.0-10.0)
[2018-06-07 08:26] LABS: ALBUMIN 2.2 g/dl (3.4-5.0); ANION GAP 9 MMOL/L (8-16); BILIRUBIN,TOTAL 1.1 mg/dL (0.2-1.0); BLOOD UREA NITROGEN 12 mg/dL (7-18); CALCIUM 7.6 mg/dL (8.5-10.1); CHLORIDE 95 mmol/L (98-107); CO2 29 mmol/L (21-32); CREATININE 0.5 mg/dL (0.7-1.3); GLUCOSE,RANDOM 102 mg/dL (74-106); MAGNESIUM 2.2 mg/dL (1.8-2.4); PHOSPHOROUS 3.5 mg/dL (2.5-4.9); POTASSIUM 3.5 mmol/L (3.5-5.1); SGOT/AST 28 U/L (15-37); SGPT/ALT 48 U/L (13-61); SODIUM 133 mmol/L (136-145); TOT PROT 5.4 g/dl (6.4-8.2)
[2018-06-07 08:28] LABS: ALK PHOS 89 U/L (45-117)
[2018-06-07] MEDS: amLODIPine BESYLATE 10 MG TABLET (FP) PO SCH (09:39)
[2018-06-07] MEDS: ENOXAPARIN NA (PORCINE) 40 MG/0.4 ML DISP.SYRIN SQ SCH (09:39)
[2018-06-07] MEDS: THIAMINE HCL 100 MG TABLET (FP) PO SCH (09:39)
[2018-06-07] MEDS: MAGNESIUM OXIDE 400 MG TABLET (FP) PO SCH (09:39)
[2018-06-07] MEDS ORDERED: PT OWN MED DRAWER 7, Y5N ONE ×2 (09:45→17:21)
[2018-06-07] MEDS: NICOTINE POLACRILEX 2 MG GUM BUC PRN ×2 (09:46→13:07)
[2018-06-07] MEDS: LACTATED RINGERS SOLUTION 1,000 ML/1,000 ML INFUS.BAG IV SCH (09:46)
[2018-06-07] MEDS ORDERED: LACTATED RINGERS SOLUTION 1,000 ML/1,000 ML INFUS.BAG IV SCH (10:01)
[2018-06-07] MEDS ORDERED: MELATONIN 5 MG TABLETS PO PRN (10:04)
[2018-06-07] MEDS: chlordiazePOXIDE 5 MG CAPSULE PO SCH ×3 (10:55→23:41)
[2018-06-07] MEDS ORDERED: chlordiazePOXIDE HCL 10 MG CAPSULE PO SCH (11:00)
--- NOTE | 2018-06-07 11:39 | PN ---
Physical Exam: SUBJECTIVE: Patient seen and examined this AM. He states that he is feeling much better today and that he is very hungry. He says that he had two bowel movements overnight with great relief of his abdominal pain. He states that he is wanting to go to 90 day rehab and become involved in his and daughters life again which he had not been previously due to the drinking. OBJECTIVE: Vital Signs Period Temp Pulse Resp BP Sys/Kim Pulse Ox Last 24 Hr 98.3 F-99.7 F 94-110 18-22 127-154/66-92 95 GENERAL: A&O, in no acute distress this AM HEAD: Normocephalic, atraumatic. EYES: PERRL, no scleral icterus EARS, NOSE, THROAT: oropharynx clear without exudates. Moist mucous membranes. NECK: supple without lymphadenopathy LUNGS: CTA b/l, no crackles or wheezes HEART: Regular rate and rhythm, normal S1 and S2 without murmur ABDOMEN: Firm, mildly tender to palpation in epigastric region, normoactive bowel sounds MUSCULOSKELETAL: No bony deformities or tenderness. EXTREMITIES: 2+ pulses, warm, well-perfused. No peripheral edema. NEUROLOGICAL: Cranial nerves II-XII grossly intact. Less tremulous PSYCHIATRIC: Anxiety greatly improved SKIN: Warm, dry, no rashes or lesions noted Laboratory Results - last 24 hr 06/05/18 06/06/18 06/06/18 06:20 17:17 23:48 WBC RBC Hgb Hct MCV MCH MCHC RDW Plt Count MPV Absolute Neuts (auto) Neutrophils % Lymphocytes % Monocytes % Eosinophils % Basophils % Nucleated RBC % Sodium Potassium Chloride Carbon Dioxide Anion Gap BUN Creatinine Creat Clearance w eGFR POC Glucometer 161 159 Random Glucose Calcium Phosphorus Magnesium Ferritin Total Bilirubin AST ALT Alkaline Phosphatase Total Protein Albumin Bile Acids 11.1 Stool Occult Blood 06/07/18 06/07/18 06/07/18 00:01 05:59 06:30 WBC RBC Hgb Hct MCV MCH MCHC RDW Plt Count MPV Absolute Neuts (auto) Neutrophils % Lymphocytes % Monocytes % Eosinophils % Basophils % Nucleated RBC % Sodium 133 L Potassium 3.5 Chloride 95 L Carbon Dioxide 29 Anion Gap 9 BUN 12 Creatinine 0.5 L Creat Clearance w eGFR > 60 POC Glucometer 121 Random Glucose 102 Calcium 7.6 L Phosphorus 3.5 D Magnesium 2.2 Ferritin 594.8 H Total Bilirubin 1.1 H AST 28 ALT 48 Alkaline Phosphatase 89 Total Protein 5.4 L Albumin 2.2 L Bile Acids Stool Occult Blood Negative 06/07/18 06/07/18 06/07/18 06:30 06:30 10:59 WBC 9.7 RBC 3.24 L Hgb 10.6 L Hct 30.2 L MCV 93.2 MCH 32.8 MCHC 35.2 RDW 13.7 Plt Count 154 D MPV 9.3 Absolute Neuts (auto) 7.8 Neutrophils % 80.2 Lymphocytes % 10.2 Monocytes % 8.6 Eosinophils % 0.9 D Basophils % 0.1 Nucleated RBC % 0 Sodium Cancelled Potassium Cancelled Chloride Cancelled Carbon Dioxide Cancelled Anion Gap Cancelled BUN Cancelled Creatinine Cancelled Creat Clearance w eGFR Cancelled POC Glucometer 130 Random Glucose Cancelled Calcium Cancelled Phosphorus Cancelled Magnesium Cancelled Ferritin Total Bilirubin Cancelled AST Cancelled ALT Cancelled Alkaline Phosphatase Cancelled Total Protein Cancelled Albumin Cancelled Bile Acids Stool Occult Blood Active Medications Generic Name Dose Route Start Last Admin Trade Name Josephq PRN Reason Stop Dose Admin Albuterol Sulfate 2 puff 06/04/18 03:34 Ventolin Hfa Inhaler - IH Q4H PRN SHORT OF BREATH/WHEEZING Amlodipine Besylate 10 mg 06/04/18 10:00 06/07/18 09:39 Norvasc - PO 10 mg DAILY [facility]IE Administration Chlordiazepoxide HCl 15 mg 06/07/18 11:00 06/07/18 10:55 Librium - PO 06/08/18 05:01 15 mg [id number] AUDIE Administration Chlordiazepoxide HCl 10 mg 06/08/18 11:00 Librium - PO 06/09/18 05:01 [id number] AUDIE Enoxaparin Sodium 40 mg 06/05/18 10:00 06/07/18 09:39 Lovenox - SQ 40 mg DAILY [facility]IE Administration Potassium Chloride/Sodium Chloride 20 meq in 1,000 mls @ 75 mls/hr 06/07/18 10 :15 Ns+20 Meq Kcl - IV ASDIR AUDIE Ketorolac Tromethamine 15 mg 06/06/18 06:35 06/07/18 05:56 Toradol Injection - IVPUSH 06/11/18 06:34 15 mg Q6H PRN Administration PAIN LEVEL 6-10 Magnesium Oxide 800 mg 06/05/18 10:00 06/07/18 09:39 Mag-Ox - PO 06/08/18 09:59 800 mg DAILY [facility]IE Administration Melatonin 5 mg 06/07/18 10:04 Melatonin PO HS PRN INSOMNIA Methadone HCl 120 mg 06/05/18 08:45 06/07/18 06:38 Dolophine - PO 120 mg DAILY@0600 [facility] Administration Nicotine Polacrilex 2 mg 06/05/18 01:51 06/07/18 09:46 Nicorette Gum - BUC 2 mg Q2H PRN Administration NICOTINE REPLACEMENT RX Thiamine HCl 100 mg 06/04/18 10:00 06/07/18 09:39 Vitamin B1 - PO 100 mg DAILY [facility] Administration ASSESSMENT/PLAN: 32 yo Male was admitted from [facility] s/p witnessed fall from chair while awaiting admission for Detox from alcohol, also found to have Acute Pancreatitis. Acute Pancreatitis -Pt with epigastric pain, n/v, Lipase of 3900 (resolved), CT noted with signs of acute pancreatitis -RUQ u/s noted without gallstones or CBD dilatation, LFTs almost completely resolved -Regular diet -Toradol 15 mg IV Q6 PRN -Abdominal distention - could be secondary to mild ileus - resolved Multiple Bowel movements last night Abdominal U/S negative for ascites, b/l pleural effusions (no complaint of SOB or cough) Surgical consult ordered Withdrawal symptoms, likely secondary to alcohol withdrawal though pt noted on methadone maintenance with verified 120 mg dose daily -Librium taper protocol, requiring less PRN doses than yesterday -Can be completed at [facility] if needed SIRS -Pt was tachycardic in 120s on admission though improved with WBC now below 12 -Likely secondary to Acute Pancreatitis, very unlikely infectious at this time -No Abx necessary S/P witnessed Fall with head trauma -Likely secondary to alcohol intoxication -No visible trauma to the head -CT Head negative for bleed or fracture -CT Cervical Spine negative for fracture or subluxation HTN -Norvasc 10mg PO Daily -Home dose of HCTZ held due to electrolyte abnormalities DVT Prophylaxis -Lovenox 40 mg SQ Daily FEN -Fluids: NS + 20 mEq K @ 75 cc/hr -Electrolytes: K 3.5, repleted, CMP in AM -Nutrition: Regular Diet Disposition Med/Surg, can likely be transferred to [facility] for remainder of detox/rehab tomorrow Visit type - Emergency Visit Emergency Visit: Yes ED Registration Date: 06/03/18 Care time: The patient presented to the Emergency Department on the above date and was hospitalized for further evaluation of their emergent condition. - New Patient This patient is new to me today: No - Critical Care Critical Care patient: No
[2018-06-07] MEDS: SODIUM CHLORIDE 0.9%/KCL 20 MEQ/1,000 ML INFUS.BAG IV SCH (11:48)
--- NOTE | 2018-06-07 15:41 | EKG ---
Test Reason : Blood Pressure : / mmHG Vent. Rate : 090 BPM Atrial Rate : 090 BPM P-R Int : 150 ms QRS Dur : 092 ms QT Int : 398 ms P-R-T Axes : 068 042 059 degrees QTc Int : 486 ms NORMAL SINUS RHYTHM NONSPECIFIC ST ABNORMALITY PROLONGED QT ABNORMAL ECG WHEN COMPARED WITH ECG OF 12-MAY-2018 20:55, NONSPECIFIC T WAVE ABNORMALITY NO LONGER EVIDENT IN INFERIOR LEADS NONSPECIFIC T WAVE ABNORMALITY, IMPROVED IN ANTEROLATERAL LEADS QT HAS LENGTHENED Confirmed by SKYE CASTRO MD ([id number]) on 06/07/2018 3:40:31 PM Referred By: Confirmed By:SKYE CASTRO MD
[2018-06-08] MEDS ORDERED: MELATONIN 5 MG TABLETS PO ONE (01:50)
[2018-06-08] MEDS: KETOROLAC TROMETHAMINE 15 MG/ML VIAL IVPUSH PRN (04:59)
[2018-06-08] MEDS: SODIUM CHLORIDE 0.9%/KCL 20 MEQ/1,000 ML INFUS.BAG IV SCH (04:59)
[2018-06-08] MEDS: chlordiazePOXIDE 5 MG CAPSULE PO SCH (05:00)
[2018-06-08] MEDS ORDERED: DOCUSATE SODIUM 100 MG CAPSULE (FP) PO ONE (05:30)
[2018-06-08] MEDS: METHADONE HCL 40 MG DISPERSABLE TABLET PO SCH (05:44)
[2018-06-08 06:10] LABS: SERUM IRON SATURATION 6 % (15-55); TOTAL IRON BINDING CAPACITY 203 ug/dL (250-450); UIBC 190 ug/dL (111-343)
[2018-06-08 07:14] LABS: BASO % 0.1 % (0-2.0); EOS % 1.3 % (0-4.5); HEMATOCRIT 28.8 % (35.4-49); HEMOGLOBIN 9.8 GM/dL (11.7-16.9); LYMPH % 11.9 % (8-40); MCHC 34.1 g/dl (32.0-35.9); MEAN CELL VOLUME 93.8 fl (80-96); MEAN PLT VOLUME 8.6 fl (7.5-11.1); MONO % 13.1 % (3.8-10.2); NEUT % 73.6 % (42.8-82.8); PLATELET COUNT 163 K/MM3 (134-434); RBC 3.07 M/mm3 (4.00-5.60); RDW 13.7 % (11.9-15.9); WHITE BLOOD COUNT 9.2 K/mm3 (4.0-10.0)
[2018-06-08 07:53] LABS: CHLORIDE 98 mmol/L (98-107); POTASSIUM 3.6 mmol/L (3.5-5.1); SODIUM 135 mmol/L (136-145)
[2018-06-08] MEDS ORDERED: FERROUS SO4 325 MG TABLET (FP) PO SCH (08:00)
[2018-06-08 08:01] LABS: ALBUMIN 2.2 g/dl (3.4-5.0); ALK PHOS 86 U/L (45-117); ANION GAP 9 MMOL/L (8-16); BILIRUBIN,TOTAL 0.8 mg/dL (0.2-1.0); BLOOD UREA NITROGEN 7 mg/dL (7-18); CALCIUM 7.8 mg/dL (8.5-10.1); CO2 28 mmol/L (21-32); CREATININE 0.5 mg/dL (0.55-1.3); GLUCOSE,RANDOM 105 mg/dL (74-106); MAGNESIUM 2.2 mg/dL (1.8-2.4); PHOSPHOROUS 3.7 mg/dL (2.5-4.9); SGOT/AST 24 U/L (15-37); SGPT/ALT 42 U/L (13-61); TOT PROT 5.5 g/dl (6.4-8.2)
[2018-06-08] MEDS ORDERED: DOCUSATE SODIUM 100 MG CAPSULE (FP) PO SCH (10:00)
[2018-06-08] MEDS: amLODIPine BESYLATE 10 MG TABLET (FP) PO SCH (10:21)
[2018-06-08] MEDS: THIAMINE HCL 100 MG TABLET (FP) PO SCH (10:22)
[2018-06-08] MEDS: ENOXAPARIN NA (PORCINE) 40 MG/0.4 ML DISP.SYRIN SQ SCH (10:23)
[2018-06-08] MEDS ORDERED: chlordiazePOXIDE 5 MG CAPSULE PO SCH (11:00)
[2018-06-08 11:05] VITALS: BP 114/66; PULSE 72; TEMP 98.2
--- NOTE | 2018-06-08 11:39 | PN ---
Teaching Attending Note Name of Resident: Lai Blue ATTENDING PHYSICIAN STATEMENT I saw and evaluated the patient. I reviewed the resident's note and discussed the case with the resident. I agree with the resident's findings and plan as documented with exceptions below. SUBJECTIVE: Patient seen and examined. No nausea, vomiting, or diarrhea. Abdominal pain improved. Tolerating diet well. NO tremors or anxiety. OBJECTIVE: Vital Signs Period Temp Pulse Resp BP Sys/Kim Pulse Ox Last 24 Hr 98.0 F-98.8 F 72-102 18-22 111-136/65-80 95-96 Intake & Output 06/05/18 06/06/18 06/07/18 06/08/18 23:59 23:59 23:59 23:59 Intake Total 5630 3300 3255 1550 Output Total 400 100 Balance 5230 3300 3155 1550 Weight 216 lb General: sitting in bed in no acute distress Chest: CTAB, no rales or wheezing Abdomen:soft improved distension, markedly improved tenderness, no voluntary or involuntary guarding or rigidity Extremities: no edema or tremors Home Medications Medication Instructions Recorded RX: Methadone [Dolophine -] 120 mg PO DAILY 02/05/18 RX: Albuterol Sulfate Inhaler - 2 puff IH Q4H PRN #1 inhaler 04/03/18 [Ventolin HFA Inhaler -] RX: Amlodipine Besylate [Norvasc -] 10 mg PO DAILY #30 tablet 05/22/18 RX: Hydrochlorothiazide [Hctz -] 25 mg PO DAILY #30 tablet 05/22/18 Docusate Sodium [Colace -] 100 mg PO BID #60 capsule 06/08/18 RX: Ferrous Sulfate [Feosol] 325 mg PO DAILY@0800 #30 ud 06/08/18 Sennosides [Senna] 8.6 mg PO HS PRN #30 tablet 06/08/18 Laboratory Results - last 24 hr 06/03/18 06/07/18 06/07/18 16:35 06:30 16:50 WBC RBC Hgb Hct MCV MCH MCHC RDW Plt Count MPV Absolute Neuts (auto) Neutrophils % Lymphocytes % Monocytes % Eosinophils % Basophils % Nucleated RBC % Retic Count Sodium Potassium Chloride Carbon Dioxide Anion Gap BUN Creatinine Creat Clearance w eGFR POC Glucometer 109 Random Glucose Calcium Phosphorus Magnesium Iron 13 L TIBC 203 L Iron Saturation 6 L Transferrin 155 L Total Bilirubin AST ALT Alkaline Phosphatase Total Protein Albumin Ethylene Glycol None detected 06/07/18 06/08/18 06/08/18 23:40 05:49 06:00 WBC 9.2 RBC 3.07 L Hgb 9.8 L Hct 28.8 L MCV 93.8 MCH 32.0 MCHC 34.1 RDW 13.7 Plt Count 163 MPV 8.6 Absolute Neuts (auto) 6.8 Neutrophils % 73.6 Lymphocytes % 11.9 Monocytes % 13.1 H Eosinophils % 1.3 Basophils % 0.1 Nucleated RBC % 0 Retic Count Sodium Potassium Chloride Carbon Dioxide Anion Gap BUN Creatinine Creat Clearance w eGFR POC Glucometer 135 145 Random Glucose Calcium Phosphorus Magnesium Iron TIBC Iron Saturation Transferrin Total Bilirubin AST ALT Alkaline Phosphatase Total Protein Albumin Ethylene Glycol 06/08/18 06/08/18 06:00 06:00 WBC RBC Hgb Hct MCV MCH MCHC RDW Plt Count MPV Absolute Neuts (auto) Neutrophils % Lymphocytes % Monocytes % Eosinophils % Basophils % Nucleated RBC % Retic Count 2.15 H Sodium 135 L Potassium 3.6 Chloride 98 Carbon Dioxide 28 Anion Gap 9 BUN 7 Creatinine 0.5 L Creat Clearance w eGFR > 60 POC Glucometer Random Glucose 105 Calcium 7.8 L Phosphorus 3.7 Magnesium 2.2 Iron TIBC Iron Saturation Transferrin Total Bilirubin 0.8 AST 24 ALT 42 Alkaline Phosphatase 86 Total Protein 5.5 L Albumin 2.2 L Ethylene Glycol ASSESSMENT AND PLAN: 32yo M with PMH HTN and continuous polysusbtance abuse presented to the ER from [facility] after witnessed fall from a chair and c/o abdominal pain, while awaiting admission to inpatient detox -Acute alcoholic pancreatitis with abdominal and pelvic ascitis -Abnormal LFTs, suspect acute alcoholic hepatitis, r/o viral etiology, low suspicion for obstructive process -SIRS, likely from pancreatitis -anemia, suspect dehydrated on admission, now dilutional from aggressive hydration, low suspicion for bleed. -Thrombocytopenia, dilutional +/- acute alcohol ingestion -Mechanical fall -Severe hypomagnesemia -Hypophosphatemia -Remote opioid abuse/methadone dependence -HTN Plan: Tolerating diet well, LFts and labs normalized. Electrolyte abnormalities resolved Ambulating well with no concerns. Iron panel noted, start PO iron. Bowel regimen and high fiber counseling provided. Continue methadone. Continue home norvasc/HCTZ D/c home today. Patient plans to go to detox in [place]. Discussed with Social work. Plan discussed with patient in detail, all questions answered. Patient relays understanding and in agreement.
--- NOTE | 2018-06-08 13:26 | DS ---
Physical Exam: SUBJECTIVE: Patient seen and examined this AM. He states that he is feeling better today than any other day. Tolerating solid diet well with minimal abdominal pain he relates to not having a bowel movement. Discussed with patient the importance of a bowel regimen as needed upon discharge OBJECTIVE: Vital Signs Period Temp Pulse Resp BP Sys/Kim Pulse Ox Last 24 Hr 98.0 F-98.8 F 72-102 18-22 111-136/65-80 95-96 PHYSICAL EXAM GENERAL: A&O, in no acute distress this AM HEAD: Normocephalic, atraumatic. EYES: PERRL, no scleral icterus EARS, NOSE, THROAT: oropharynx clear without exudates. Moist mucous membranes. NECK: supple without lymphadenopathy LUNGS: CTA b/l, no crackles or wheezes HEART: Regular rate and rhythm, normal S1 and S2 without murmur ABDOMEN: Soft, minimal tenderness to palpation in epigastric region, normoactive bowel sounds MUSCULOSKELETAL: No bony deformities or tenderness. EXTREMITIES: 2+ pulses, warm, well-perfused. No peripheral edema. NEUROLOGICAL: Cranial nerves II-XII grossly intact. Less tremulous PSYCHIATRIC: Anxiety greatly improved SKIN: Warm, dry, no rashes or lesions noted LABS Laboratory Results - last 24 hr 06/03/18 06/07/18 06/07/18 16:35 06:30 16:50 WBC RBC Hgb Hct MCV MCH MCHC RDW Plt Count MPV Absolute Neuts (auto) Neutrophils % Lymphocytes % Monocytes % Eosinophils % Basophils % Nucleated RBC % Retic Count Sodium Potassium Chloride Carbon Dioxide Anion Gap BUN Creatinine Creat Clearance w eGFR POC Glucometer 109 Random Glucose Calcium Phosphorus Magnesium Iron 13 L TIBC 203 L Iron Saturation 6 L Transferrin 155 L Total Bilirubin AST ALT Alkaline Phosphatase Total Protein Albumin Ethylene Glycol None detected 06/07/18 06/08/18 06/08/18 23:40 05:49 06:00 WBC 9.2 RBC 3.07 L Hgb 9.8 L Hct 28.8 L MCV 93.8 MCH 32.0 MCHC 34.1 RDW 13.7 Plt Count 163 MPV 8.6 Absolute Neuts (auto) 6.8 Neutrophils % 73.6 Lymphocytes % 11.9 Monocytes % 13.1 H Eosinophils % 1.3 Basophils % 0.1 Nucleated RBC % 0 Retic Count Sodium Potassium Chloride Carbon Dioxide Anion Gap BUN Creatinine Creat Clearance w eGFR POC Glucometer 135 145 Random Glucose Calcium Phosphorus Magnesium Iron TIBC Iron Saturation Transferrin Total Bilirubin AST ALT Alkaline Phosphatase Total Protein Albumin Ethylene Glycol 06/08/18 06/08/18 06:00 06:00 WBC RBC Hgb Hct MCV MCH MCHC RDW Plt Count MPV Absolute Neuts (auto) Neutrophils % Lymphocytes % Monocytes % Eosinophils % Basophils % Nucleated RBC % Retic Count 2.15 H Sodium 135 L Potassium 3.6 Chloride 98 Carbon Dioxide 28 Anion Gap 9 BUN 7 Creatinine 0.5 L Creat Clearance w eGFR > 60 POC Glucometer Random Glucose 105 Calcium 7.8 L Phosphorus 3.7 Magnesium 2.2 Iron TIBC Iron Saturation Transferrin Total Bilirubin 0.8 AST 24 ALT 42 Alkaline Phosphatase 86 Total Protein 5.5 L Albumin 2.2 L Ethylene Glycol IMAGING: Head CT: negative for acute bleed or fracture Abdomen/Pelvis CT: Early acute pancreatitis, some free fluid in cul de sac, diffuse abdominal and pelvic ascites noted Cervical Spine CT: negative for acute fracture or joint subluxation Abdominal U/S: normal common bile duct, nonvisualization of the pancreas Abdominal X-Ray: Air filled bowel loops in the transverse colon. Abdominal U/S: No ascites noted, b/l peural effusions, fatty liver vs hepatocellular disease CXR: mild left pleural effusion, bibasilar atelectasis HOSPITAL COURSE: Date of Admission:06/03/18 Date of Discharge: 06/08/18 32 yo Male with PMH of HTN, Alcohol abuse, on methadone for opioid addiction maintenance, was admitted after a fall while waiting to be admitted to Detox at [facility]. Pt had a witnessed fall with head trauma. He was found to have pancreatitis on admission with abdominal pain and lipase elevation, confirmed with CT as above which did not show any mass or pseudocyst. He was treated as per standard pancreatitis therapy with aggressive fluids and slow advancement of the diet as tolerated by n/v/pain as per patient. Pt was seen by GI and Surgery who recommended continuation of the current management. He was also noted to be undergoing severe alcohol withdrawals with markedly elevated CIWA scores. Pt required extra day of librium taper at 50 mg on the second day of the taper due to withdrawal symptoms. He completed the taper and was asymptomatic and resolved. He was seen by an addiction medicine consult who recommended continuation of the librium taper. Throughout his admission he had abdominal distension with lack of bowel movements and possible mild ileus which was resolved with a bowel regimen. Of note he was hemoconcentrated on admission but found to have a likely iron deficient anemia and was prescribed PO iron as outpatient and recommended to follow up wit PCP and GI. Pt requested discharge today in order to try to get to rehab on a Monday so that he can start rehab for alcohol use instead of going home for the weekend. Multiple providers had multiple discussions with patient about alcohol use and he agreed on the importance of stopping alcohol use completely. Minutes to complete discharge: 40 Discharge Summary Reason For Visit: ALCOHOL DEPENDENCE, PANCREATITIS Condition: Good - Instructions Diet, Activity, Other Instructions: You were admitted to the hospital for pancreatitis that was likely caused by your alcohol use. While you were here you were given fluids and your diet was slowly advanced as you tolerated it as the pancreatitis was resolving. Your electrolytes were abnormal most likely due to your alcohol use and dehydration. They were checked and repleted daily and are now stable. You were also placed on a librium taper to assist in your detox from alcohol while you were here. You have completed the detox process and are now stable to go home or to rehab. While you were here your blood counts were a little low and your iron was found to be low. On discharge we are prescribing you oral iron which you should take once daily. This can cause constipation, so you should monitor your bowel movements and use over the counter laxatives as needed to have a bowel movement once a day or once every other day. It is of the highest importance that you not drink alcohol as it can cause recurrence of the pancreatitis, damage your liver, and possibly lead to if you start consuming alcohol again. This has been discussed with you at length and you have agreed and understand completely the risks of drinking alcohol, and you have verbalized that you do not want to keep drinking and want to go to a 90 day rehab upon discharge from the hospital. It is important that you are seen by your primary care physician within 1 week of discharge from the hospital. It is also recommended that you follow up with a GI doctor within 1-2 weeks of discharge. If you have worsening abdominal pain or any symptoms of withdrawals return or worsen, it is important that you call 911 or return to the Emergency Department immediately. Referrals: Ramone Burns DO [Staff Physician] - YUE TAO [Non Staff, Medical] - 1 Week Disposition: HOME - Home Medications Comprehensive Discharge Medication List: Ambulatory Orders Methadone [Dolophine -] 120 mg PO DAILY 02/05/18 Albuterol Sulfate Inhaler - [Ventolin HFA Inhaler -] 2 puff IH Q4H PRN #1 inhaler 04/03/18 Amlodipine Besylate [Norvasc -] 10 mg PO DAILY #30 tablet 05/22/18 Hydrochlorothiazide [Hctz -] 25 mg PO DAILY #30 tablet 05/22/18 Docusate Sodium [Colace -] 100 mg PO BID #60 capsule 06/08/18 Ferrous Sulfate [Feosol] 325 mg PO DAILY@0800 #30 ud 06/08/18 Sennosides [Senna] 8.6 mg PO HS PRN #30 tablet 06/08/18 This patient is new to me today: No Emergency Visit: Yes ED Registration Date: 06/03/18 Care time: The patient presented to the Emergency Department on the above date and was hospitalized for further evaluation of their emergent condition. Critical Care patient: No - Discharge Referral Referred to [facility].C[facility] No
== END 2018-06-08 12:03 | disposition home or self-care (01) | DRG 282 ==
LOC: JER 14:57 → JERBED 16:44 → J5S 20:56
PROVIDERS: ADMIT Internal Medicine; ATTEND Hospitalist
DX: K85.90 Acute pancreatitis without necrosis or infection, unspecified (principal); R16.0 Hepatomegaly, not elsewhere classified; R18.8 Other ascites; K76.0 Fatty (change of) liver, not elsewhere classified; R65.10 Systemic inflammatory response syndrome (SIRS) of non-infectious origin without acute organ dysfunction; S09.90XA Unspecified injury of head, initial encounter; E83.39 Other disorders of phosphorus metabolism; F11.20 Opioid dependence, uncomplicated; E83.42 Hypomagnesemia; J98.11 Atelectasis; F10.220 Alcohol dependence with intoxication, uncomplicated; Z68.33 Body mass index [BMI] 33.0-33.9, adult; J45.909 Unspecified asthma, uncomplicated; I10 Essential (primary) hypertension; W07.XXXA Fall from chair, initial encounter; Y92.238 Other place in hospital as the place of occurrence of the external cause; Y99.8 Other external cause status; R63.4 Abnormal weight loss; D64.9 Anemia, unspecified; E66.9 Obesity, unspecified; J90 Pleural effusion, not elsewhere classified
CPT/HCPCS: 36415; 70450-TC; 71045-TC-FY; 72125-TC; 74018-TC-FY; 74177-TC; 76700-TC; 80053; 80074; 80307; 82239; 82248; 82272; 82693; 82728; 82962; 83540; 83550; 83615; 83690; 83735; 83930; 84100; 84466; 84478; 85025; 85027; 85044; 85610; 85730; 93005; 93010; 97116-GP; 97161-GP; 99285-25

== ENCOUNTER 2018-06-08 17:09 | Emergency (ER) | payer OTHER ==
[2018-06-08 18:16] VITALS: BP 126/72; PULSE 118; TEMP 99.6; BMI 33.8
--- NOTE | 2018-06-08 19:27 | PDOC ---
Attending Attestation - Resident Resident Name: AdrienneGigi - ED Attending Attestation I have performed the following: I have examined & evaluated the patient, The case was reviewed & discussed with the resident, I agree w/resident's findings & plan, Exceptions are as noted - HPI HPI: 06/08/18 19:27 32y M hx of polysubstance abuse sent to the ED from [facility] for evaluation, was discharged from here for pancreatitis and went to [facility] for detox and was sent pt here for evlauation. Pt admits to drinking eralier today. denies any complaints. exam: slightly tremulous, head atraumatic cardiac: tachycardic abd soft nontender - Physicial Exam PE: 06/10/18 19:53 see above - Medical Decision Making 06/09/18 02:01 pts labs reviewed pt currently clinically sober, abulatory requesting detox pt was mildly tremulous earlier was given charisse eativan had discssed with [facility] - requests we send the pt in the AM. evelio lgive librium PRN pts HR currently 103 he is atremulous Heart Score/ECG Review - ECG Impressions Comment:: 06/09/18 02:18 Twelve-lead EKG was performed and reviewed by me. There is normal sinus rhythm with a rate of 103 axis normal nonspecific TWI
[2018-06-08] MEDS ORDERED: ACETAMINOPHEN 1000 MG/100 ML VIAL (NON FORMULARY) IVPB ONE (22:42)
[2018-06-08] MEDS ORDERED: FOLIC ACID INJECTION - 1 MG, THIAMINE HCL 100 MG, MULTIVIT INJECTION ADULT 10 ML in SOD... IVPB ONE (22:42)
[2018-06-08] MEDS ORDERED: ONDANSETRON *ODT* 4 MG TABLET SL ONE (22:42)
[2018-06-09] MEDS ORDERED: LORazepam 2 MG/ML SDV VIAL ONE (00:11)
--- NOTE | 2018-06-09 00:11 | PDOC ---
History of Present Illness - General Chief Complaint: Alcohol intoxication Stated Complaint: INTOX Time Seen by Provider: 06/08/18 18:25 History Source: Patient Exam Limitations: No Limitations - History of Present Illness Initial Comments: 06/09/18 00:52 Mr. Rodriguez is a 32 yo M with a hx of HTN, alcohol abuse, and multiple pancreatitis who presents to the emergency department requesting for detoxification. He was discharged from [facility] today after a head trauma s/p mechanical fall and pancreatitis. He started drinking today at 12:30 pm, shortly after discharge. He states he drank 6 "nips" which are miniature hard liquor bottles and felt intoxicated in the department. In addition, he complains of epigastric pain that feels similar to a previous pancreatitis episode. It is localized in the area, sharp, and worsened with his alcohol binge. He endorses having nausea and vomiting with 1x episode of watery vomit today without hematemesis, hand tremors, and tingling sensation throughout his body. Denies the following: fevers, chills, chest pain, SOB, diarrhea, dysuria, hematuria, visual hallucinations, auditory hallucinations, melena, and leg pain swelling. Denies recent substance abuse. Past History - Past Medical History Allergies/Adverse Reactions: Allergies Allergy/AdvReac Type Severity Reaction Status Date / Time No Known Allergies Allergy Verified 06/03/18 15:29 Home Medications: Ambulatory Orders Methadone [Dolophine -] 120 mg PO DAILY 02/05/18 Albuterol Sulfate Inhaler - [Ventolin HFA Inhaler -] 2 puff IH Q4H PRN #1 inhaler 04/03/18 Amlodipine Besylate [Norvasc -] 10 mg PO DAILY #30 tablet 05/22/18 Hydrochlorothiazide [Hctz -] 25 mg PO DAILY #30 tablet 05/22/18 Docusate Sodium [Colace -] 100 mg PO BID #60 capsule 06/08/18 Ferrous Sulfate [Feosol] 325 mg PO DAILY@0800 #30 ud 06/08/18 Sennosides [Senna] 8.6 mg PO HS PRN #30 tablet 06/08/18 Asthma: Yes Cancer: No Cardiac Disorders: No CVA: No COPD: No CHF: No Diabetes: No GI Disorders: No Disorders: No HTN: Yes Hypercholesterolemia: No Kidney Stones: Yes (2011) Liver Disease: No Seizures: No Thyroid Disease: No - Surgical History Abdominal Surgery: No Appendectomy: No Cardiac Surgery: No Cholecystectomy: No Lung Surgery: No Neurologic Surgery: No Orthopedic Surgery: Yes (FOR FRACTURED RT. ANKLE BONES IN 2015) - Reproductive History Testicular Surgery: No - Immunization History Immunization Up to Date: Yes - Suicide/Smoking/Psychosocial Hx Smoking History: Current every day smoker Have you smoked in the past 12 months: Yes Number of Cigarettes Smoked Daily: 3 Information on smoking cessation initiated: No 'Breaking Loose' booklet given: 05/12/18 Hx Alcohol Use: Yes (daily) Drug/Substance Use Hx: No Substance Use Type: Alcohol Hx Substance Use Treatment: Yes (methadone) Review of Systems - Review of Systems Able to Perform ROS?: Yes Constitutional: Yes: Chills. No: Diaphoresis, Fever HEENTM: No: Eye Pain, Recent change in vision, Ear Pain, Nose Pain, Throat Pain , Mouth Pain Respiratory: No: Cough, Shortness of Breath, Hemoptysis Cardiac (ROS): No: Chest Pain, Lightheadedness, Palpitations, Syncope, Chest Tightness ABD/GI: Yes: Nausea, Vomiting, Abdominal cramping. No: Constipated, Diarrhea, Poor Appetite, Poor Fluid Intake, Rectal Bleeding, Tarry Stools : No: Burning, Dysuria, Hematuria Musculoskeletal: No: Back Pain Integumentary: No: Pruritus, Rash Neurological: Yes: Headache, Tingling (throughout the body), Tremors (hands). No: Numbness, Weakness, Unsteady Gait, Ataxia, Dizziness Psychiatric: No: Stressors Endocrine: No: Increased Hunger Hematologic/Lymphatic: No: Anemia *Physical Exam - Vital Signs Last Vital Signs Temp Pulse Resp BP Pulse Ox 99.6 F 118 H 18 126/72 100 06/08/18 17:10 06/08/18 17:10 06/08/18 17:10 06/08/18 17:10 06/08/18 17:10 - Physical Exam General Appearance: Yes: Nourished, Appropriately Dressed, Alcohol on Breath, Intoxicated HEENT: positive: EOMI, DEXTER Neck: positive: Trachea midline. negative: Lymphadenopathy (R), Lymphadenopathy (L) Respiratory/Chest: positive: Lungs Clear, Normal Breath Sounds. negative: Chest Tender, Respiratory Distress, Accessory Muscle Use Cardiovascular: positive: Regular Rate, S1, S2, Tachycardia. negative: Systolic Murmur Vascular Pulses: Dorsalis-Pedis (R): 3+, Doralis-Pedis (L): 3+ Gastrointestinal/Abdominal: positive: Normal Bowel Sounds, Tender (epigastric region) Musculoskeletal: positive: Normal Inspection. negative: CVA Tenderness Extremity: positive: Normal Capillary Refill, Normal Inspection, Normal Range of Motion. negative: Tender Integumentary: positive: Normal Color, Dry, Warm Neurologic: positive: toter II-XII NML intact, Alert, Motor Strength 5/5. negative: Fully Oriented (intoxication), Normal Mood/Affect ED Treatment Course - LABORATORY CBC & Chemistry Diagram: 06/09/18 00:10 06/09/18 00:10 Medical Decision Making - Medical Decision Making 06/09/18 01:02 32 yo M with hx of alcoholism and pancreatitis presenting for detox with concurrent abdominal pain Initial vitals: Initial Vital Signs Temp Pulse Resp BP Pulse Ox 99.6 F 118 H 18 126/72 100 06/08/18 17:10 06/08/18 17:10 06/08/18 17:10 06/08/18 17:10 06/08/18 17:10 Work up Laboratory Tests 06/08/18 06/09/18 06/09/18 23:44 00:10 00:10 WBC Cancelled 10.6 H Corrected WBC (auto) Cancelled RBC Cancelled 3.16 L Hgb Cancelled 10.1 L Hct Cancelled 29.5 L MCV Cancelled 93.4 MCH Cancelled 32.1 MCHC Cancelled 34.4 RDW Cancelled 13.9 Plt Count Cancelled 230 D MPV Cancelled 8.3 Absolute Neuts (auto) Cancelled Neutrophils % Cancelled Lymphocytes % Cancelled Monocytes % Cancelled Eosinophils % Cancelled Basophils % Cancelled Nucleated RBC % Cancelled Platelet Estimate Cancelled Platelet Comment Cancelled Sodium 136 Potassium 3.8 Chloride 99 Carbon Dioxide 30 Anion Gap 7 L BUN 4 L Creatinine 0.6 Creat Clearance w eGFR > 60 Random Glucose 105 Calcium 7.7 L Total Bilirubin 0.4 AST 26 ALT 41 Alkaline Phosphatase 91 Total Protein 5.9 L Albumin 2.3 L Lipase 217 Opiates Screen Methadone Screen Barbiturate Screen Phencyclidine Screen Ur Amphetamines Screen MDMA (Ecstasy) Screen Benzodiazepines Screen Cocaine Screen U Marijuana (THC) Screen Alcohol, Quantitative 71.2 H 06/09/18 00:26 WBC Corrected WBC (auto) RBC Hgb Hct MCV MCH MCHC RDW Plt Count MPV Absolute Neuts (auto) Neutrophils % Lymphocytes % Monocytes % Eosinophils % Basophils % Nucleated RBC % Platelet Estimate Platelet Comment Sodium Potassium Chloride Carbon Dioxide Anion Gap BUN Creatinine Creat Clearance w eGFR Random Glucose Calcium Total Bilirubin AST ALT Alkaline Phosphatase Total Protein Albumin Lipase Opiates Screen Negative Methadone Screen Positive Barbiturate Screen Negative Phencyclidine Screen Negative Ur Amphetamines Screen Negative MDMA (Ecstasy) Screen Negative Benzodiazepines Screen Positive Cocaine Screen Negative U Marijuana (THC) Screen Negative Alcohol, Quantitative Lipase was negative, indicating this is not pancreatitis. He was given 2 mg ativan, banana bag, zofran for nausea control and tylenol for pain analgesia. He wishes to go to [facility] after his ED stay. Transfer of care to Dr. Thorpe 06/09/18 02:31 *DC/Admit/Observation/Transfer Diagnosis at time of Disposition: Alcohol intoxication Qualifiers: Complication of substance-induced condition: with unspecified complication Qualified Code(s): F10.929 - Alcohol use, unspecified with intoxication, unspecified - Referrals - Patient Instructions - Post Discharge Activity
[2018-06-09] MEDS ORDERED: ONDANSETRON *ODT* 4 MG TABLET ONE (00:12)
[2018-06-09] MEDS ORDERED: ACETAMINOPHEN INJECTION 100 ML IVPB ONE (00:12)
[2018-06-09 00:26] LABS: HEMATOCRIT 29.5 % (35.4-49); HEMOGLOBIN 10.1 GM/dL (11.7-16.9); MCH 32.1 pg (25.7-33.7); MCHC 34.4 g/dl (32.0-35.9); MEAN CELL VOLUME 93.4 fl (80-96); MEAN PLT VOLUME 8.3 fl (7.5-11.1); PLATELET COUNT 230 K/MM3 (134-434); RBC 3.16 M/mm3 (4.00-5.60); RDW 13.9 % (11.9-15.9); WHITE BLOOD COUNT 10.6 K/mm3 (4.0-10.0)
[2018-06-09 00:49] LABS: ALBUMIN 2.3 g/dl (3.4-5.0); ALK PHOS 91 U/L (45-117); ANION GAP 7 MMOL/L (8-16); BILIRUBIN,TOTAL 0.4 mg/dL (0.2-1.0); BLOOD UREA NITROGEN 4 mg/dL (7-18); CALCIUM 7.7 mg/dL (8.5-10.1); CHLORIDE 99 mmol/L (98-107); CO2 30 mmol/L (21-32); CREATININE 0.6 mg/dL (0.55-1.3); GLUCOSE,RANDOM 105 mg/dL (74-106); LIPASE 217 U/L (73-393); POTASSIUM 3.8 mmol/L (3.5-5.1); SGOT/AST 26 U/L (15-37); SGPT/ALT 41 U/L (13-61); SODIUM 136 mmol/L (136-145); TOT PROT 5.9 g/dl (6.4-8.2)
[2018-06-09 00:55] LABS: COCAINE, UR NEGATIVE ng/ml (CUTOFF=300); OPIATES, URI NEGATIVE ng/ml (CUTOFF=300); PHENCYCLIDINE,URINE NEGATIVE ng/ml (CUTOFF=25); URINE AMPHETAMINES NEGATIVE ng/ml (CUTOFF=500); URINE BARBITURATES NEGATIVE ng/ml (CUTOFF=200)
[2018-06-09 01:01] LABS: METHADONE, UR POSITIVE ng/ml (CUTOFF=300); URINE BENZODIAZEPINES POSITIVE ng/ml (CUTOFF=200)
--- NOTE | 2018-06-10 21:48 | EKG ---
Test Reason : Blood Pressure : / mmHG Vent. Rate : 103 BPM Atrial Rate : 103 BPM P-R Int : 128 ms QRS Dur : 090 ms QT Int : 340 ms P-R-T Axes : 045 032 021 degrees QTc Int : 445 ms SINUS TACHYCARDIA NONSPECIFIC T WAVE ABNORMALITY ABNORMAL ECG WHEN COMPARED WITH ECG OF 04-JUN-2018 06:36, NO SIGNIFICANT CHANGE WAS FOUND Confirmed by LA NENA MONTENEGRO MD ([id number]) on 06/10/2018 9:48:00 PM Referred By: Confirmed By:LA NENA MONTENEGRO MD
== END 2018-06-09 06:10 | disposition home or self-care (01) ==
LOC: JER 17:09
PROC: 3E033NZ Introduction of Analgesics, Hypnotics, Sedatives into Peripheral Vein, Percutaneous Approach (ICD-10-PCS; principal; 2018-06-08)
PROC: 3E033GC Introduction of Other Therapeutic Substance into Peripheral Vein, Percutaneous Approach (ICD-10-PCS; 2018-06-08)
DX: F10.929 Alcohol use, unspecified with intoxication, unspecified (principal); I10 Essential (primary) hypertension; K85.90 Acute pancreatitis without necrosis or infection, unspecified; J45.909 Unspecified asthma, uncomplicated; F17.210 Nicotine dependence, cigarettes, uncomplicated
CPT/HCPCS: 36415; 80053; 80307; 83690; 85027; 93005; 93010; 96365; 96375; 99283-25; J0131; J7030; Q0162

== ENCOUNTER 2018-06-09 08:07 | Inpatient (IN) | payer OTHER ==
[2018-06-09 09:03] VITALS: BMI 39.4
--- NOTE | 2018-06-09 09:41 | HP ---
CIWA Score - CIWA Score Nausea/Vomitin-Mild Nausea/No Vomiting Muscle Tremors: 4-Moderate,w/Arms Extend Anxiety: 4-Mod. Anxious/Guarded Agitation: 1-Slight > Activity Paroxysmal Sweats: 1-Minimal Palms Moist Orientation: 0-Oriented Tacttile Disturbances: 1-Very Mild Itch/Numbness Auditory Disturbances: 1-Very Mild Visual Disturbances: 1-Very Mild Sensitivity Headache: 2-Mild CIWA-Ar Total Score: 16 Admission ROS BHS - HPI Chief Complaint: I want to be done with this, I need help, I'm in so much pain, I have to stop drinking Allergies/Adverse Reactions: Allergies Allergy/AdvReac Type Severity Reaction Status Date / Time No Known Allergies Allergy Verified 06/09/18 09:05 History of Present Illness: 32 yo gentleman here for detox from alcohol, no seizures but does have history of black outs. This is one of several admissions. Patient also on [facility] Methadone Program x 2 years (120mg.) Patient was in [facility] 06/03/-06/08/18 for acute pancreatitis and was discharged on 06/08 but developed abdominal pain with vomiting so went back to [facility] ED and was evaluated and cleared for detox so came to [facility]. Patient was last dosed with methadone yesterday at [facility]. Patient states he did receive librium while inpatient but vomited often and now still feels very shaky and having withdrawal signs. Of note is a nearly 20 lb weight gain since in the past week and noticeable bilateral edema which patient says is new - will need close monitoring. Exam Limitations: Clinical Condition - Ebola screening Have you traveled outside of the country in the last 21 days: No (N) Have you had contact with anyone from an Ebola affected area: No Have you been sick,other than usual withdrawal symptoms: No Do you have a fever: No - Review of Systems Constitutional: Loss of Appetite, Malaise, Night Sweats, Changes in sleep, Weakness, Other (weight gain ? fluid) EENT: reports: No Symptoms Reported Respiratory: reports: Cough Cardiac: reports: No Symptoms Reported, Edema (lower extremity) GI: reports: Nausea, Poor Appetite, Poor Fluid Intake, Vomiting, Abdominal cramping : reports: Frequency Musculoskeletal: reports: Back Pain Integumentary: reports: Bruising (left abdomen (? related to lovonox injections) ) Neuro: reports: Headache, Tremors Endocrine: reports: No Symptoms Reported Hematology: reports: No Symptoms Reported Psychiatric: reports: Judgement Intact, Mood/Affect Appropiate, Orientated x3, Anxious Other Systems: Reviewed and Negative Patient History - Patient Medical History Hx Asthma: Yes Hx Chronic Obstructive Pulmonary Disease (COPD): No Hx Cancer: No Hx Cardiac Disorders: No Hx Congestive Heart Failure: No Hx Hypertension: Yes (on meds) Hx Hypercholesterolemia: No Hx Pacemaker: No HX Cerebrovascular Accident: No Hx Seizures: No Hx Diabetes: No Hx Gastrointestinal Disorders: Yes (Pancreatitis) Hx Liver Disease: Yes (fatty liver) Hx Genitourinary Disorders: No Hx Sexually Transmitted Disorders: No Hx Renal Disease (ESRD): Yes (hx kidney stones) Hx Thyroid Disease: No Hx Human Immunodeficiency Virus (HIV): No Hx Hepatitis C: No Hx Depression: Yes (with anxiety; hx hospitalized years ago when young) Hx Suicide Attempt: No Hx Bipolar Disorder: No Hx Schizophrenia: No - Patient Surgical History Past Surgical History: Yes Hx Neurologic Surgery: No Hx Cataract Extraction: No Hx Cardiac Surgery: No Hx Lung Surgery: No Hx Breast Surgery: No Hx Breast Biopsy: No Hx Abdominal Surgery: No Hx Appendectomy: No Hx Cholecystectomy: No Hx Genitourinary Surgery: No Hx Section: No Hx Orthopedic Surgery: Yes (FOR FRACTURED RT. ANKLE BONES IN 2014) Other Surgical History: SURGERY FOR ABSCESS ON THE NECK - SEVERAL YRS. AGO Anesthesia Reaction: No - PPD History Previous Implant?: Yes Documented Results: Negative w/proof Implanted On Prior [facility] Admission?: Yes Date: 02/05/18 PPD to be Administered?: No - Reproductive History Patient is a Female of Child Bearing Age (11 -55 yrs old): No (male) - Smoking Cessation Smoking history: Current every day smoker Have you smoked in the past 12 months: Yes Aproximately how many cigarettes per day: 10 Hx Chewing Tobacco Use: No Initiated information on smoking cessation: Yes 'Breaking Loose' booklet given: 06/09/18 (give on floor) - Substance & Tx. History Hx Alcohol Use: Yes Hx Substance Use: Yes Substance Use Type: Alcohol Hx Substance Use Treatment: Yes (detox, rehab, [facility]) - Substances Abused Alcohol Route: Oral Frequency: Daily Amount used: 20 NIPS OF BOURBAN Age of first use: 7 Date of Last Use: 06/08/18 Family Disease History - Family Disease History Family Disease History: Other: Father (DEPENDENT ON ETOH AND DRUGS), Mother ( Alive: healthy), Brother (1, healthy), Sister (1, healthy), Son (1, healthy), Daughter (2, healthy) Admission Physical Exam BHS - Vital Signs Vital Signs: Vital Signs - 24 hr 06/09/18 08:59 Temperature 100.4 F H Pulse Rate 112 H Respiratory 18 Rate Blood Pressure 137/70 - Physical General Appearance: Yes: Nourished, Appropriately Dressed, Moderate Distress, Tremorous, Anxious, Other (coated tongue) HEENTM: Yes: EOMI, Hearing grossly Normal, Normocephalic, Normal Voice, Pharynx Normal Respiratory: Yes: Normal Breath Sounds, No Respiratory Distress Neck: Yes: No masses,lesions,Nodules, Supple Breast: Yes: Breast Exam Deferred Cardiology: Yes: Regular Rhythm, Edema, Tachycardia Abdominal: Yes: Protuberent, Distended, Tenderness, Other (bruising left lower quadrant) Genitourinary: Yes: Frequency Back: Yes: Normal Inspection Musculoskeletal: Yes: full range of Motion, Gait Steady Extremities: Yes: Normal Range of Motion, Pedal Edema (1+ bilateral lower extremity pitting edema), Swelling (lower legs) Neurological: Yes: Fully Oriented, Alert, Motor Strength 5/5, Normal Mood/Affect , Normal Response Integumentary: Yes: Normal Color, Dry, Warm, Other (bru) Lymphatic: Yes: Within Normal Limits - Diagnostic (1) Alcohol dependence with uncomplicated withdrawal Current Visit: Yes Status: Chronic (2) Methadone maintenance therapy patient Current Visit: Yes Status: Chronic (3) Constipation Current Visit: Yes Status: Chronic Qualifiers: Constipation type: drug induced constipation Qualified Code(s): K59.03 - Drug induced constipation (4) Alcoholic pancreatitis Current Visit: Yes Status: Acute Qualifiers: Acute pancreatitis complication: unspecified (5) Nicotine dependence Current Visit: Yes Status: Acute Qualifiers: Nicotine product type: cigarettes Substance use status: uncomplicated Qualified Code(s): F17.210 - Nicotine dependence, cigarettes, uncomplicated (6) HTN (hypertension) Current Visit: Yes Status: Chronic Qualifiers: Hypertension type: essential hypertension Qualified Code(s): I10 - Essential (primary) hypertension (7) Edema of both lower extremities Current Visit: Yes Status: Acute (8) Fatty liver Current Visit: Yes Status: Chronic (9) Dehydration Current Visit: Yes Status: Acute Cleared for Admission [facility] - Detox or Rehab [facility] Level of Care: Medically Managed Detox Regimen/Protocol: Librium [facility] Breath Alcohol Content Breath Alcohol Content: 0 Urine Drug Screen - Results Drug Screen Negative: No Urine Drug Screen Results: BZO-Benzodiazepines, MTD-Methadone
[2018-06-09] MEDS ORDERED: MAGNESIUM CITRATE 300 ML BOTTLE PO PRN (10:11)
[2018-06-09] MEDS ORDERED: MAG HYDROX/AL HYDROX/SIMETH 30 ML UNIT-DOSE CUP PO PRN (10:11)
[2018-06-09] MEDS ORDERED: LOPERAMIDE HCL 2 MG CAPSULE PO PRN (10:11)
[2018-06-09] MEDS ORDERED: guaiFENesin/D-METHORPHAN HB 10 ML UNIT-DOSE CUPS PO PRN (10:11)
[2018-06-09] MEDS ORDERED: IBUPROFEN 400 MG TABLET (FP) PO PRN (10:11)
[2018-06-09] MEDS ORDERED: P-EPHED 60MG/TRIPROLIDI 2.5MG TABLET PO PRN (10:11)
[2018-06-09] MEDS ORDERED: ACETAMINOPHEN 325 MG TABLET (FP) PO PRN (10:11)
[2018-06-09] MEDS ORDERED: MAGNESIUM HYDROX 2400MG/30ML ORAL SUSPENSION 30 ML CUP PO PRN (10:11)
[2018-06-09] MEDS ORDERED: NICOTINE POLACRILEX 4 MG GUM BUC PRN (10:11)
[2018-06-09] MEDS ORDERED: MENTHOL/PHENOL 1 EACH UD MM PRN (10:11)
[2018-06-09] MEDS ORDERED: ONDANSETRON *ODT* 4 MG TABLET SL PRN (10:14)
[2018-06-09] MEDS ORDERED: METHADONE HCL 10 MG TABLET PO ONE (11:25)
[2018-06-09] MEDS ORDERED: ALBUTEROL SO4 8 GM HFA INHALER IH PRN (11:26)
[2018-06-09] MEDS ORDERED: chlordiazePOXIDE HCL 25 MG CAPSULE PO ONE (11:30)
[2018-06-09] MEDS: amLODIPine BESYLATE 10 MG TABLET (FP) PO SCH (12:01)
[2018-06-09] MEDS: FERROUS SO4 325 MG TABLET (FP) PO SCH (12:01)
[2018-06-09] MEDS: HYDROCHLOROTHIAZIDE 25 MG TABLET (FP) PO SCH (12:01)
[2018-06-09] MEDS ORDERED: METHADONE HCL 40 MG DISPERSABLE TABLET PO ONE (12:30)
[2018-06-09] MEDS: hydrOXYzine PAMOATE 50 MG CAPSULE (FP) PO PRN ×2 (14:04→23:22)
[2018-06-09] MEDS: chlordiazePOXIDE HCL 25 MG CAPSULE PO SCH ×2 (17:17→22:20)
[2018-06-09 18:17] LABS: URINE APPEARANCE CLEAR; URINE BILIRUBIN NEGATIVE (<2.0 mg/dL); URINE COLOR YELLOW; URINE GLUCOSE (UA) NEGATIVE (NEGATIVE); URINE KETONE NEGATIVE (NEGATIVE); URINE LEUK ESTERASE NEGATIVE (NEGATIVE); URINE NITRITE NEGATIVE (NEGATIVE); URINE PROTEIN NEGATIVE (NEGATIVE); URINE UROBILINOGEN NEGATIVE mg/dL (0.2-1.0)
[2018-06-09 18:25] LABS: EPI CELLS RARE /HPF (FEW); URINE MUCUS RARE
[2018-06-09] MEDS: chlordiazePOXIDE HCL 25 MG CAPSULE PO PRN (20:16)
[2018-06-09] MEDS: THIAMINE HCL 100 MG TABLET (FP) PO SCH (22:20)
[2018-06-09] MEDS: MELATONIN 5 MG TABLETS PO PRN (22:23)
[2018-06-10] MEDS: MELATONIN 5 MG TABLETS PO PRN ×2 (01:11→22:22)
[2018-06-10] MEDS: chlordiazePOXIDE HCL 25 MG CAPSULE PO SCH ×4 (04:49→22:22)
[2018-06-10] MEDS: FERROUS SO4 325 MG TABLET (FP) PO SCH (07:30)
[2018-06-10] MEDS: chlordiazePOXIDE HCL 25 MG CAPSULE PO PRN ×3 (07:31→18:35)
[2018-06-10] MEDS ORDERED: METHADONE HCL 40 MG DISPERSABLE TABLET PO SCH (10:00)
[2018-06-10] MEDS: METHADONE HCL 40 MG DISPERSABLE TABLET PO SCH (10:25)
[2018-06-10] MEDS: HYDROCHLOROTHIAZIDE 25 MG TABLET (FP) PO SCH (10:26)
[2018-06-10] MEDS: amLODIPine BESYLATE 10 MG TABLET (FP) PO SCH (10:26)
[2018-06-10] MEDS: PRENATAL VITAMINS W/ FOLIC ACID TABLET (FP) PO SCH (10:26)
[2018-06-10 10:36] LABS: HEMATOCRIT 28.7 % (35.4-49); HEMOGLOBIN 9.5 GM/dL (11.7-16.9); MCH 31.6 pg (25.7-33.7); MCHC 33.3 g/dl (32.0-35.9); MEAN PLT VOLUME 8.5 fl (7.5-11.1); PLATELET COUNT 280 K/MM3 (134-434); RBC 3.02 M/mm3 (4.00-5.60); RDW 13.8 % (11.9-15.9); WHITE BLOOD COUNT 8.1 K/mm3 (4.0-10.0)
[2018-06-10 10:48] LABS: ALBUMIN 2.2 g/dl (3.4-5.0); ANION GAP 6 MMOL/L (8-16); BILIRUBIN,TOTAL 0.3 mg/dL (0.2-1.0); BLOOD UREA NITROGEN 3 mg/dL (7-18); CALCIUM 8.2 mg/dL (8.5-10.1); CHLORIDE 101 mmol/L (98-107); CO2 33 mmol/L (21-32); CREATININE 0.5 mg/dL (0.55-1.3); GLUCOSE,RANDOM 109 mg/dL (74-106); POTASSIUM 3.9 mmol/L (3.5-5.1); SGOT/AST 16 U/L (15-37); SGPT/ALT 36 U/L (13-61); SODIUM 140 mmol/L (136-145); TOT PROT 5.7 g/dl (6.4-8.2)
[2018-06-10 10:49] LABS: ALK PHOS 82 U/L (45-117)
[2018-06-10] MEDS: hydrOXYzine PAMOATE 50 MG CAPSULE (FP) PO PRN (12:17)
--- NOTE | 2018-06-10 13:23 | PN ---
S CIWA - CIWA Score Nausea/Vomitin-Mild Nausea/No Vomiting Muscle Tremors: 4-Moderate,w/Arms Extend Anxiety: 3 Agitation: 3 Paroxysmal Sweats: 1-Minimal Palms Moist Orientation: 0-Oriented Tacttile Disturbances: 1-Very Mild Itch/Numbness Auditory Disturbances: 0-None Visual Disturbances: 0-None Headache: 1-Very Mild CIWA-Ar Total Score: 14 S Progress Note (SOAP) Subjective: restlessness sweat tremor irritable wants to see a psychiatrist mild diarrhea gi distress Objective: 06/10/18 13:21 Vital Signs Temperature 97.9 F 06/10/18 09:27 Pulse Rate 106 H 06/10/18 09:27 Respiratory Rate 18 06/10/18 09:27 Blood Pressure 144/73 06/10/18 09:27 O2 Sat by Pulse Oximetry (%) Laboratory Last Values WBC 8.1 K/mm3 (4.0-10.0) 06/10/18 07:25 RBC 3.02 M/mm3 (4.00-5.60) L 06/10/18 07:25 Hgb 9.5 GM/dL (11.7-16.9) L 06/10/18 07:25 Hct 28.7 % (35.4-49) L 06/10/18 07:25 MCV 95.0 fl (80-96) 06/10/18 07:25 MCH 31.6 pg (25.7-33.7) 06/10/18 07:25 MCHC 33.3 g/dl (32.0-35.9) 06/10/18 07:25 RDW 13.8 % (11.9-15.9) 06/10/18 07:25 Plt Count 280 K/MM3 (134-434) D 06/10/18 07:25 MPV 8.5 fl (7.5-11.1) 06/10/18 07:25 Sodium 140 mmol/L (136-145) 06/10/18 07:25 Potassium 3.9 mmol/L (3.5-5.1) 06/10/18 07:25 Chloride 101 mmol/L (98-107) 06/10/18 07:25 Carbon Dioxide 33 mmol/L (21-32) H 06/10/18 07:25 Anion Gap 6 MMOL/L (8-16) L 06/10/18 07:25 BUN 3 mg/dL (7-18) L 06/10/18 07:25 Creatinine 0.5 mg/dL (0.55-1.3) L 06/10/18 07:25 Creat Clearance w eGFR > 60 (>60) 06/10/18 07:25 Random Glucose 109 mg/dL (74-106) H 06/10/18 07:25 Calcium 8.2 mg/dL (8.5-10.1) L 06/10/18 07:25 Total Bilirubin 0.3 mg/dL (0.2-1.0) 06/10/18 07:25 AST 16 U/L (15-37) 06/10/18 07:25 ALT 36 U/L (13-61) 06/10/18 07:25 Alkaline Phosphatase 82 U/L (45-117) 06/10/18 07:25 Total Protein 5.7 g/dl (6.4-8.2) L 06/10/18 07:25 Albumin 2.2 g/dl (3.4-5.0) L 06/10/18 07:25 Urine Color Yellow 06/09/18 10:02 Urine Appearance Clear 06/09/18 10:02 Urine pH 6.0 (5.0-8.0) 06/09/18 10:02 Ur Specific [place] 1.009 (1.001-1.035) 06/09/18 10:02 Urine Protein Negative (NEGATIVE) 06/09/18 10:02 Urine Glucose (UA) Negative (NEGATIVE) 06/09/18 10:02 Urine Ketones Negative (NEGATIVE) 06/09/18 10:02 Urine Blood 1+ (NEGATIVE) H 06/09/18 10:02 Urine Nitrite Negative (NEGATIVE) 06/09/18 10:02 Urine Bilirubin Negative (<2.0 mg/dL) 06/09/18 10:02 Urine Urobilinogen Negative mg/dL (0.2-1.0) 06/09/18 10:02 Ur Leukocyte Esterase Negative (NEGATIVE) 06/09/18 10:02 Urine WBC (Auto) 2 /hpf (3-5) 06/09/18 10:02 Urine RBC (Auto) 6 /hpf (0-3) 06/09/18 10:02 Ur Epithelial Cells Rare /HPF (FEW) 06/09/18 10:02 Urine Mucus Rare 06/09/18 10:02 RPR Titer Nonreactive (NONREACTIVE) 06/10/18 07:25 06/10/18 13:30 lab noted Assessment: 06/10/18 13:31 withdrawal sx Plan: continue detox
[2018-06-10] MEDS: RANITIDINE HCL 150 MG TABLET (FP) PO SCH ×2 (13:33→22:22)
[2018-06-10] MEDS: AMOXICILLIN 500 MG CAPSULE (FP) PO SCH (22:22)
[2018-06-10] MEDS: THIAMINE HCL 100 MG TABLET (FP) PO SCH (22:22)
--- NOTE | 2018-06-10 22:30 | EKG ---
Test Reason : Blood Pressure : / mmHG Vent. Rate : 100 BPM Atrial Rate : 100 BPM P-R Int : 118 ms QRS Dur : 090 ms QT Int : 346 ms P-R-T Axes : 035 035 068 degrees QTc Int : 446 ms NORMAL SINUS RHYTHM NONSPECIFIC T WAVE ABNORMALITY ABNORMAL ECG WHEN COMPARED WITH ECG OF 08-JUN-2018 23:42, NO SIGNIFICANT CHANGE WAS FOUND Confirmed by LA NENA MONTENEGRO MD ([id number]) on 06/10/2018 10:30:26 PM Referred By: Confirmed By:LA NENA MONTENEGRO MD
[2018-06-11] MEDS: chlordiazePOXIDE HCL 25 MG CAPSULE PO PRN ×2 (00:55→12:26)
[2018-06-11] MEDS: hydrOXYzine PAMOATE 50 MG CAPSULE (FP) PO PRN (03:28)
[2018-06-11] MEDS: chlordiazePOXIDE HCL 25 MG CAPSULE PO SCH ×2 (05:53→10:27)
[2018-06-11] MEDS: FERROUS SO4 325 MG TABLET (FP) PO SCH (07:41)
--- NOTE | 2018-06-11 08:45 | CONSULT ---
[facility] Psychiatric Consult - Data Date of interview: 06/11/18 Admission source: [facility] Identifying data: This is a 32 years old male, single father of three, on/and off working, homeless, with psychiatric hospitalization history, gentleman here for detox from alcohol reporting alcohol withdrawal symptoms. Patient also on [facility] Methadone Program x 2 years (120mg.) Substance Abuse History: - Smoking Cessation. Smoking history: Current every day smoker. Have you smoked in the past 12 months: Yes. Aproximately how many cigarettes per day: 10. Hx Chewing Tobacco Use: No. Initiated information on smoking cessation: Yes. 'Breaking Loose' booklet given: 06/09/18 (give on floor ). - Substance & Tx. History. Hx Alcohol Use: Yes. Hx Substance Use: Yes. Substance Use Type: Alcohol. Hx Substance Use Treatment: Yes (detox, rehab, [facility]). - Substances Abused. Alcohol. Route: Oral. Frequency: Daily. Amount used: 20 NIPS OF BOURBAN. Age of first use: 7. Date of Last Use: Medical History: Asthma, Alcoholic Pancreatitis, Hypoikalemia history, lower extremity edema, Fatty Liver, HTN Psychiatric History: Patient reports history of depression and anxiety, reports unclear psychiatric admission for safety on about 10 years ago, reports durrently taking: Ambien 10mg po qhs. Vistaril 100mg po tid. Denies suicidal , homicidal history Physical/Sexual Abuse/Trauma History: Denies Additional Comment: Ambien 10mg po qhs. Vistaril 100mg po tid Mental Status Exam - Mental Status Exam Alert and Oriented to: Person Cognitive Function: Fair Patient Appearance: Unkempt Mood: Sad Affect: Flat Patient Behavior: Sedated Speech Pattern: Delayed Voice Loudness: Mildly Soft/Quiet Thought Process: Circumstantial Thought Disorder: Being Controlled Hallucinations: Denies Suicidal Ideation: Denies Homicidal Ideation: Denies Insight/Judgement: Fair Sleep: Difficulty falling asleep Appetite: Weight gain Muscle strength/Tone: Mild Hypotonicity Gait/Station: Deferred Additional Comments: Cymbalta 30mg poqd Psychiatric Findings - Problem List ([place] 1, 2,3) (1) Alcoholic pancreatitis Current Visit: Yes Status: Acute Qualifiers: Acute pancreatitis complication: unspecified (2) Edema of both lower extremities Current Visit: Yes Status: Acute (3) Nicotine dependence Current Visit: Yes Status: Acute Qualifiers: Nicotine product type: cigarettes Substance use status: uncomplicated Qualified Code(s): F17.210 - Nicotine dependence, cigarettes, uncomplicated (4) Alcohol dependence with uncomplicated withdrawal Current Visit: Yes Status: Chronic (5) Fatty liver Current Visit: Yes Status: Chronic (6) HTN (hypertension) Current Visit: Yes Status: Chronic Qualifiers: Hypertension type: essential hypertension Qualified Code(s): I10 - Essential (primary) hypertension (7) Methadone maintenance therapy patient Current Visit: Yes Status: Chronic (8) Alcohol dependence Current Visit: No Status: Acute (9) Alcohol intoxication Current Visit: No Status: Acute Qualifiers: Complication of substance-induced condition: with unspecified complication Qualified Code(s): F10.929 - Alcohol use, unspecified with intoxication, unspecified (10) Cocaine dependence Current Visit: No Status: Acute Qualifiers: Substance use status: uncomplicated Qualified Code(s): F14.20 - Cocaine dependence, uncomplicated (11) Hypokalemia Current Visit: No Status: Acute (12) Insomnia Current Visit: No Status: Acute Qualifiers: Insomnia type: unspecified Qualified Code(s): G47.00 - Insomnia, unspecified (13) Pancreatitis Current Visit: No Status: Acute Qualifiers: Chronicity: acute Pancreatitis type: unspecified pancreatitis type Acute pancreatitis complication: unspecified Qualified Code(s): K85.90 - Acute pancreatitis without necrosis or infection, unspecified (14) Anxiety and depression Current Visit: No Status: Chronic (15) Asthma Current Visit: No Status: Chronic Qualifiers: Asthma severity: unspecified severity Asthma persistence: intermittent Asthma complication type: unspecified Qualified Code(s): J45.20 - Mild intermittent asthma, uncomplicated (16) EtOH dependence Current Visit: No Status: Chronic Qualifiers: Substance use status: uncomplicated Qualified Code(s): F10.20 - Alcohol dependence, uncomplicated (17) Heroin dependence Current Visit: No Status: Chronic (18) Methadone maintenance therapy patient Current Visit: No Status: Chronic (19) Opioid dependence on agonist therapy Current Visit: No Status: Chronic - Initial Treatment Plan Initial Treatment Plan: Ambien 10mg po qhs. Vistaril 100mg po tid
[2018-06-11] MEDS: AMOXICILLIN 500 MG CAPSULE (FP) PO SCH ×2 (10:25→22:24)
[2018-06-11] MEDS: amLODIPine BESYLATE 10 MG TABLET (FP) PO SCH (10:28)
[2018-06-11] MEDS: HYDROCHLOROTHIAZIDE 25 MG TABLET (FP) PO SCH (10:28)
[2018-06-11] MEDS: PRENATAL VITAMINS W/ FOLIC ACID TABLET (FP) PO SCH (10:28)
[2018-06-11] MEDS: METHADONE HCL 40 MG DISPERSABLE TABLET PO SCH (10:28)
[2018-06-11] MEDS: RANITIDINE HCL 150 MG TABLET (FP) PO SCH ×2 (10:28→22:25)
[2018-06-11] MEDS: hydrOXYzine PAMOATE 50 MG CAPSULE (FP) PO SCH ×2 (14:38→22:24)
--- NOTE | 2018-06-11 15:34 | PN ---
S CIWA - CIWA Score Nausea/Vomitin-No Nausea/No Vomiting Muscle Tremors: 4-Moderate,w/Arms Extend Anxiety: 2 Agitation: 3 Paroxysmal Sweats: 1-Minimal Palms Moist Orientation: 1-Uncertain about Date Tacttile Disturbances: 1-Very Mild Itch/Numbness Auditory Disturbances: 0-None Visual Disturbances: 0-None Headache: 1-Very Mild CIWA-Ar Total Score: 13 BHS Progress Note (SOAP) Subjective: sweat tremor restlessness anxiety trouble sleep at night Objective: 06/11/18 15:33 Vital Signs Temperature 99.1 F 06/11/18 13:18 Pulse Rate 100 H 06/11/18 13:18 Respiratory Rate 20 06/11/18 13:18 Blood Pressure 139/70 06/11/18 13:18 O2 Sat by Pulse Oximetry (%) Laboratory Last Values WBC 8.1 K/mm3 (4.0-10.0) 06/10/18 07:25 RBC 3.02 M/mm3 (4.00-5.60) L 06/10/18 07:25 Hgb 9.5 GM/dL (11.7-16.9) L 06/10/18 07:25 Hct 28.7 % (35.4-49) L 06/10/18 07:25 MCV 95.0 fl (80-96) 06/10/18 07:25 MCH 31.6 pg (25.7-33.7) 06/10/18 07:25 MCHC 33.3 g/dl (32.0-35.9) 06/10/18 07:25 RDW 13.8 % (11.9-15.9) 06/10/18 07:25 Plt Count 280 K/MM3 (134-434) D 06/10/18 07:25 MPV 8.5 fl (7.5-11.1) 06/10/18 07:25 Sodium 140 mmol/L (136-145) 06/10/18 07:25 Potassium 3.9 mmol/L (3.5-5.1) 06/10/18 07:25 Chloride 101 mmol/L (98-107) 06/10/18 07:25 Carbon Dioxide 33 mmol/L (21-32) H 06/10/18 07:25 Anion Gap 6 MMOL/L (8-16) L 06/10/18 07:25 BUN 3 mg/dL (7-18) L 06/10/18 07:25 Creatinine 0.5 mg/dL (0.55-1.3) L 06/10/18 07:25 Creat Clearance w eGFR > 60 (>60) 06/10/18 07:25 Random Glucose 109 mg/dL (74-106) H 06/10/18 07:25 Calcium 8.2 mg/dL (8.5-10.1) L 06/10/18 07:25 Total Bilirubin 0.3 mg/dL (0.2-1.0) 06/10/18 07:25 AST 16 U/L (15-37) 06/10/18 07:25 ALT 36 U/L (13-61) 06/10/18 07:25 Alkaline Phosphatase 82 U/L (45-117) 06/10/18 07:25 Total Protein 5.7 g/dl (6.4-8.2) L 06/10/18 07:25 Albumin 2.2 g/dl (3.4-5.0) L 06/10/18 07:25 Urine Color Yellow 06/09/18 10:02 Urine Appearance Clear 06/09/18 10:02 Urine pH 6.0 (5.0-8.0) 06/09/18 10:02 Ur Specific [place] 1.009 (1.001-1.035) 06/09/18 10:02 Urine Protein Negative (NEGATIVE) 06/09/18 10:02 Urine Glucose (UA) Negative (NEGATIVE) 06/09/18 10:02 Urine Ketones Negative (NEGATIVE) 06/09/18 10:02 Urine Blood 1+ (NEGATIVE) H 06/09/18 10:02 Urine Nitrite Negative (NEGATIVE) 06/09/18 10:02 Urine Bilirubin Negative (<2.0 mg/dL) 06/09/18 10:02 Urine Urobilinogen Negative mg/dL (0.2-1.0) 06/09/18 10:02 Ur Leukocyte Esterase Negative (NEGATIVE) 06/09/18 10:02 Urine WBC (Auto) 2 /hpf (3-5) 06/09/18 10:02 Urine RBC (Auto) 6 /hpf (0-3) 06/09/18 10:02 Ur Epithelial Cells Rare /HPF (FEW) 06/09/18 10:02 Urine Mucus Rare 06/09/18 10:02 RPR Titer Nonreactive (NONREACTIVE) 06/10/18 07:25 lab noted Assessment: 06/11/18 15:34 withdrawal sx Plan: continue detox
[2018-06-11] MEDS: chlordiazePOXIDE 5 MG CAPSULE PO SCH ×2 (17:10→22:24)
[2018-06-11] MEDS: THIAMINE HCL 100 MG TABLET (FP) PO SCH (22:24)
[2018-06-11] MEDS: ZOLPIDEM TARTRATE 10 MG TABLET (PARK CARE ONLY) PO PRN (22:27)
[2018-06-12] MEDS: chlordiazePOXIDE HCL 25 MG CAPSULE PO PRN ×2 (02:30→09:00)
[2018-06-12] MEDS: hydrOXYzine PAMOATE 50 MG CAPSULE (FP) PO SCH ×3 (05:12→22:35)
[2018-06-12] MEDS: chlordiazePOXIDE 5 MG CAPSULE PO SCH ×2 (05:12→10:45)
[2018-06-12] MEDS: FERROUS SO4 325 MG TABLET (FP) PO SCH (08:30)
[2018-06-12] MEDS: amLODIPine BESYLATE 10 MG TABLET (FP) PO SCH (10:45)
[2018-06-12] MEDS: METHADONE HCL 40 MG DISPERSABLE TABLET PO SCH (10:45)
[2018-06-12] MEDS: HYDROCHLOROTHIAZIDE 25 MG TABLET (FP) PO SCH (10:45)
[2018-06-12] MEDS: PRENATAL VITAMINS W/ FOLIC ACID TABLET (FP) PO SCH (10:45)
[2018-06-12] MEDS: RANITIDINE HCL 150 MG TABLET (FP) PO SCH ×2 (10:45→22:35)
[2018-06-12] MEDS: chlordiazePOXIDE HCL 10 MG CAPSULE PO SCH ×2 (16:47→22:35)
[2018-06-12] MEDS: ZOLPIDEM TARTRATE 10 MG TABLET (PARK CARE ONLY) PO PRN (22:35)
[2018-06-12] MEDS: THIAMINE HCL 100 MG TABLET (FP) PO SCH (22:35)
[2018-06-13] MEDS: hydrOXYzine PAMOATE 50 MG CAPSULE (FP) PO SCH (05:33)
[2018-06-13] MEDS: chlordiazePOXIDE HCL 10 MG CAPSULE PO SCH (05:33)
[2018-06-13] MEDS: FERROUS SO4 325 MG TABLET (FP) PO SCH (07:11)
--- NOTE | 2018-06-13 08:59 | PN ---
BHS Progress Note (SOAP) Subjective: I'm better , no dizziness , weakness Objective: 06/13/18 08:59 Vital Signs Temperature 98.1 F 06/13/18 06:00 Pulse Rate 89 06/13/18 06:00 Respiratory Rate 18 06/13/18 06:00 Blood Pressure 114/64 06/13/18 06:00 O2 Sat by Pulse Oximetry (%) Laboratory Tests 06/09/18 06/10/18 06/10/18 10:02 07:25 07:25 WBC 8.1 RBC 3.02 L Hgb 9.5 L Hct 28.7 L MCV 95.0 MCH 31.6 MCHC 33.3 RDW 13.8 Plt Count 280 D MPV 8.5 Sodium 140 Potassium 3.9 Chloride 101 Carbon Dioxide 33 H Anion Gap 6 L BUN 3 L Creatinine 0.5 L Creat Clearance w eGFR > 60 Random Glucose 109 H Calcium 8.2 L Total Bilirubin 0.3 AST 16 ALT 36 Alkaline Phosphatase 82 Total Protein 5.7 L Albumin 2.2 L Urine Color Yellow Urine Appearance Clear Urine pH 6.0 Ur Specific [place] 1.009 Urine Protein Negative Urine Glucose (UA) Negative Urine Ketones Negative Urine Blood 1+ H Urine Nitrite Negative Urine Bilirubin Negative Urine Urobilinogen Negative Ur Leukocyte Esterase Negative Urine WBC (Auto) 2 Urine RBC (Auto) 6 Ur Epithelial Cells Rare Urine Mucus Rare RPR Titer 06/10/18 07:25 WBC RBC Hgb Hct MCV MCH MCHC RDW Plt Count MPV Sodium Potassium Chloride Carbon Dioxide Anion Gap BUN Creatinine Creat Clearance w eGFR Random Glucose Calcium Total Bilirubin AST ALT Alkaline Phosphatase Total Protein Albumin Urine Color Urine Appearance Urine pH Ur Specific [place] Urine Protein Urine Glucose (UA) Urine Ketones Urine Blood Urine Nitrite Urine Bilirubin Urine Urobilinogen Ur Leukocyte Esterase Urine WBC (Auto) Urine RBC (Auto) Ur Epithelial Cells Urine Mucus RPR Titer Nonreactive pt aox3in n nad ambulating 06/13/18 09:02 Assessment: 06/13/18 09:02 detox completed anemia Plan: d/c today hydration rehab at [facility] cont [email or web address]
--- NOTE | 2018-06-13 09:07 | DS ---
[facility] Detox Discharge Summary Admission Date: 06/09/18 Discharge Date: 06/13/18 - History Present History: Alcohol Dependence, Cocaine Dependence, [facility] - Physical Exam Results Vital Signs: Vital Signs Temperature 98.1 F 06/13/18 06:00 Pulse Rate 89 06/13/18 06:00 Respiratory Rate 18 06/13/18 06:00 Blood Pressure 114/64 06/13/18 06:00 O2 Sat by Pulse Oximetry (%) - Treatment Hospital Course: Detox Protocol Followed, Detoxed Safely, Responded well, Discharged Condition Good - Medication Discharge Medications: Ambulatory Orders Methadone [Dolophine -] 120 mg PO DAILY 02/05/18 Ferrous Sulfate [Feosol] 325 mg PO DAILY@0800 #30 ud 06/08/18 hydrOXYzine PAMOATE [Vistaril -] 100 mg PO TID #90 capsule 06/11/18 Albuterol Sulfate Inhaler - [Ventolin HFA Inhaler -] 2 puff IH Q4H PRN #1 inhaler 06/12/18 Amlodipine Besylate [Norvasc -] 10 mg PO DAILY #30 tablet 06/12/18 Amoxicillin - [Amoxicillin 500mg Capsule -] 500 mg PO BID #10 capsule 06/12/18 Hydrochlorothiazide [Hctz -] 25 mg PO DAILY #30 tablet 06/12/18 - Diagnosis (1) Anemia Current Visit: Yes Status: Acute Qualifiers: Anemia type: unspecified type Qualified Code(s): D64.9 - Anemia, unspecified (2) Nicotine dependence Current Visit: Yes Status: Acute Qualifiers: Nicotine product type: cigarettes Substance use status: uncomplicated Qualified Code(s): F17.210 - Nicotine dependence, cigarettes, uncomplicated (3) Alcohol dependence with uncomplicated withdrawal Current Visit: Yes Status: Chronic (4) Fatty liver Current Visit: Yes Status: Chronic (5) HTN (hypertension) Current Visit: Yes Status: Chronic Qualifiers: Hypertension type: essential hypertension Qualified Code(s): I10 - Essential (primary) hypertension (6) Cocaine dependence Current Visit: No Status: Acute Qualifiers: Substance use status: uncomplicated Qualified Code(s): F14.20 - Cocaine dependence, uncomplicated (7) Opioid dependence on agonist therapy Current Visit: Yes Status: Chronic - AMA Did Patient Leave Against Medical Advice: No
[2018-06-13 09:37] VITALS: BP 136/76; PULSE 102; TEMP 99.1
[2018-06-13] MEDS: PRENATAL VITAMINS W/ FOLIC ACID TABLET (FP) PO SCH (09:39)
[2018-06-13] MEDS: RANITIDINE HCL 150 MG TABLET (FP) PO SCH (09:39)
[2018-06-13] MEDS: METHADONE HCL 40 MG DISPERSABLE TABLET PO SCH (09:39)
[2018-06-13] MEDS: HYDROCHLOROTHIAZIDE 25 MG TABLET (FP) PO SCH (09:39)
[2018-06-13] MEDS: amLODIPine BESYLATE 10 MG TABLET (FP) PO SCH (09:39)
== END 2018-06-13 10:30 | disposition home or self-care (01) | DRG 773 ==
LOC: YASAS 08:07 → Y6N 10:11
PROC: HZ2ZZZZ Detoxification Services for Substance Abuse Treatment (ICD-10-PCS; principal; 2018-06-09)
DX: F10.230 Alcohol dependence with withdrawal, uncomplicated (principal); F14.20 Cocaine dependence, uncomplicated; F11.20 Opioid dependence, uncomplicated; F17.210 Nicotine dependence, cigarettes, uncomplicated; F41.8 Other specified anxiety disorders; D64.9 Anemia, unspecified; E86.0 Dehydration; E87.6 Hypokalemia; K76.0 Fatty (change of) liver, not elsewhere classified; K85.20 Alcohol induced acute pancreatitis without necrosis or infection; J45.20 Mild intermittent asthma, uncomplicated; R60.0 Localized edema; K59.03 Drug induced constipation
CPT/HCPCS: 36415; 80053; 81003; 81015; 85027; 86593; 93005; 93010; Q0162

== ENCOUNTER 2019-01-01 19:39 | Inpatient (IN) | payer OTHER ==
[2019-01-01 20:13] VITALS: BMI 32.3
--- NOTE | 2019-01-01 20:44 | HP ---
CIWA Score Nausea/Vomitin-Cont. Nausea/Vomiting Muscle Tremors: 5 Anxiety: 4-Mod. Anxious/Guarded Agitation: 0-Normal Activity Paroxysmal Sweats: 6 Orientation: 0-Oriented Tacttile Disturbances: 0-None Auditory Disturbances: 0-None Visual Disturbances: 0-None Headache: 0-None Present CIWA-Ar Total Score: 22 - Admission Criteria OASAS Guidelines: Admission for Medically Managed Detox: Requires at least one of the followin. CIWA greater than 12 2. Seizures within the past 24 hours 3. Delirium tremens within the past 24 hours 4. Hallucinations within the past 24 hours 5. Acute intervention needed for co occurring medical disorder 6. Acute intervention needed for co occurring psychiatric disorder 7. Severe withdrawal that cannot be handled at a lower level of care (continued vomiting, continued diarrhea, abnormal vital signs) requiring intravenous medication and/or fluids 8. Patient presents the following: CIWA greater than 12 Admission Criteria Met: Admission criteria met Admission ROS [facility] Chief Complaint: " I need medicine" Allergies/Adverse Reactions: Allergies Allergy/AdvReac Type Severity Reaction Status Date / Time No Known Allergies Allergy Verified 01/01/19 19:59 History of Present Illness: Patient is a 33 yo male with hx of alcohol dependence is here is seeking detox d /t withdrawal symptoms. Patient reports he has been experiencing ongoing vomiting and sweats, drinks pints of vodka per day, reports last drink today at 9AM. Patient reports hx of Fatty Liver, HTN and asthma. Il Edin MMTP 140 mg last medicated today, dose pending. Denies psych depression. Denies suicidal / homicidal ideation or hx of suicide attempt. Denies hx of seizures or blackouts. Exam Limitations: No Limitations - Ebola screening Have you traveled outside of the country in the last 21 days: No (N) Have you had contact with anyone from an Ebola affected area: No Do you have a fever: No - Review of Systems Constitutional: Chills, Diaphoresis, Weakness, Other EENT: reports: No Symptoms Reported Respiratory: reports: No Symptoms reported Cardiac: reports: No Symptoms Reported GI: reports: Nausea, Vomiting, Abdominal cramping : reports: No Symptoms Reported Musculoskeletal: reports: No Symptoms Reported Integumentary: reports: No Symptoms Reported Neuro: reports: Tremors Endocrine: reports: No Symptoms Reported Hematology: reports: No Symptoms Reported Psychiatric: reports: Orientated x3, Anxious Other Systems: Reviewed and Negative Patient History - Patient Medical History Hx Asthma: Yes Hx Chronic Obstructive Pulmonary Disease (COPD): No Hx Cancer: No Hx Cardiac Disorders: No Hx Congestive Heart Failure: No Hx Hypertension: Yes (on meds) Hx Hypercholesterolemia: No Hx Pacemaker: No HX Cerebrovascular Accident: No Hx Seizures: No Hx Dementia: No Hx Diabetes: No Hx Gastrointestinal Disorders: Yes (Pancreatitis) Hx Liver Disease: Yes (fatty liver) Hx Genitourinary Disorders: No Hx Sexually Transmitted Disorders: No Hx Renal Disease (ESRD): Yes (hx kidney stones) Hx Thyroid Disease: No Hx Human Immunodeficiency Virus (HIV): No Hx Hepatitis C: No Hx Depression: Yes (with anxiety; hx hospitalized years ago when young) Hx Suicide Attempt: No Hx Bipolar Disorder: No Hx Schizophrenia: No - Patient Surgical History Past Surgical History: Yes Hx Neurologic Surgery: No Hx Cataract Extraction: No Hx Cardiac Surgery: No Hx Lung Surgery: No Hx Breast Surgery: No Hx Breast Biopsy: No Hx Abdominal Surgery: No Hx Appendectomy: No Hx Cholecystectomy: No Hx Genitourinary Surgery: No Hx Section: No Hx Orthopedic Surgery: Yes (FOR FRACTURED RT. ANKLE BONES IN 2015) Other Surgical History: SURGERY FOR ABSCESS ON THE NECK - SEVERAL YRS. AGO Anesthesia Reaction: No - PPD History Previous Implant?: No Documented Results: Negative w/proof Date: 02/05/18 PPD to be Administered?: No - Smoking Cessation Smoking history: Current every day smoker Have you smoked in the past 12 months: Yes Aproximately how many cigarettes per day: 10 Hx Chewing Tobacco Use: No Initiated information on smoking cessation: Yes 'Breaking Loose' booklet given: 01/01/19 - Substance & Tx. History Hx Alcohol Use: Yes Hx Substance Use: Yes Hx Substance Use Treatment: Yes (Patient unable to provide information) - Substances abused Alcohol Other (specify): alcohol Substance route: Oral Frequency: Daily Amount used: 2 pints vodka Age of first use: 18 Date of last use: 01/01/19 Family Disease History - Family Disease History Family Disease History: Other: Father (DEPENDENT ON ETOH AND DRUGS), Mother ( Alive: healthy), Brother (1, healthy), Sister (1, healthy), Son (1, healthy), Daughter (2, healthy) Admission Physical Exam [facility] - Vital Signs Vital Signs: Vital Signs - 24 hr 01/01/19 20:06 Temperature 97.7 F Pulse Rate 139 H Respiratory 16 Rate Blood Pressure 173/105 H - Physical General Appearance: Yes: Appropriately Dressed, Severe Distress, Alcohol on Breath, Tremorous, Sweating, Anxious, Other (+vomiting) HEENTM: Yes: EOMI, Hearing grossly Normal, Normal ENT Inspection, Normocephalic , Normal Voice, DEXTER, Pharynx Normal, Tm's normal Respiratory: Yes: Chest Non-Tender, Lungs Clear, Normal Breath Sounds, No Respiratory Distress, No Accessory Muscle Use Neck: Yes: Within Normal Limits Breast: Yes: Breast Exam Deferred Cardiology: Yes: Regular Rhythm, Tachycardia Abdominal: Yes: Normal Bowel Sounds, Non Tender, Flat, Soft Genitourinary: Yes: Within Normal Limits Back: Yes: Normal Inspection Musculoskeletal: Yes: full range of Motion, Gait Steady, Pelvis Stable Extremities: Yes: Normal Capillary Refill, Normal Inspection, Normal Range of Motion Neurological: Yes: mobile practice lead II-XII NML intact, Fully Oriented, Alert, Motor Strength 5/5, Other (anxious) Integumentary: Yes: Normal Color, Warm, Diaphoresis Lymphatic: Yes: Within Normal Limits - Diagnostic (1) Alcohol dependence with uncomplicated withdrawal Current Visit: Yes Status: Acute (2) Asthma Current Visit: Yes Status: Chronic Qualifiers: Asthma severity: unspecified severity Asthma persistence: intermittent Asthma complication type: unspecified Qualified Code(s): J45.20 - Mild intermittent asthma, uncomplicated (3) Fatty liver Current Visit: Yes Status: Chronic (4) HTN (hypertension) Current Visit: Yes Status: Chronic Qualifiers: Hypertension type: essential hypertension Qualified Code(s): I10 - Essential (primary) hypertension (5) Nicotine dependence Current Visit: Yes Status: Chronic Qualifiers: Nicotine product type: cigarettes Substance use status: uncomplicated Qualified Code(s): F17.210 - Nicotine dependence, cigarettes, uncomplicated (6) Opioid dependence on agonist therapy Current Visit: Yes Status: Chronic Comment: on methadone maintance on 140 mg qd, last dose today, dose pending verification (7) Elevated blood pressure reading with diagnosis of hypertension Current Visit: Yes Status: Acute Cleared for Admission [facility] - Detox or Rehab S Level of Care: Medically Managed (ATIVA : HX FATTY LIVER) Inpatient Rehab Admission - Rehab Decision to Admit Inpatient rehab admission?: No
[2019-01-01] MEDS ORDERED: MAGNESIUM CITRATE 300 ML BOTTLE PO PRN (20:56)
[2019-01-01] MEDS ORDERED: MAGNESIUM HYDROX 2400MG/30ML ORAL SUSPENSION 30 ML CUP PO PRN (20:56)
[2019-01-01] MEDS ORDERED: LORazepam 2 MG TABLET PO ONE (20:56)
[2019-01-01] MEDS ORDERED: hydrOXYzine PAMOATE 25 MG CAPSULE (FP) PO PRN (20:56)
[2019-01-01] MEDS ORDERED: LORazepam 1 MG TABLET PO PRN (20:56)
[2019-01-01] MEDS ORDERED: IBUPROFEN 400 MG TABLET (FP) PO PRN (20:56)
[2019-01-01] MEDS ORDERED: MAG HYDROX/AL HYDROX/SIMETH 30 ML UNIT-DOSE CUP PO PRN (20:56)
[2019-01-01] MEDS: THIAMINE HCL 100 MG TABLET (FP) PO SCH (21:38)
[2019-01-01] MEDS ORDERED: TRIMETHOBENZAMIDE HCL 200MG/2ML INJ IM ONE (22:02)
--- NOTE | 2019-01-01 22:04 | PN ---
S Progress Note Note: Vital Signs Temperature 97.5 F L 01/01/19 21:55 Pulse Rate 118 H 01/01/19 21:55 Respiratory Rate 20 01/01/19 21:55 Blood Pressure 149/101 H 01/01/19 21:55 O2 Sat by Pulse Oximetry (%) Patient continue to vomit while on the unit tigan IM one dose ordered ice chips as tolerated continue to monitor
[2019-01-01] MEDS: MELATONIN 5 MG TABLETS PO PRN (22:21)
[2019-01-01] MEDS: METHOCARBAMOL 500 MG TABLET PO PRN (22:46)
[2019-01-01] MEDS ORDERED: LORazepam 2 MG TABLET PO SCH (23:00)
[2019-01-01] MEDS ORDERED: cloNIDine HCL 0.1 MG TABLET PO ONE (23:10)
--- NOTE | 2019-01-01 23:10 | PN ---
[facility] Progress Note Note: Has stopped vomiting. States still feels bad withdrawal. Wants to switch from Ativan to Libruim. Vital Signs 01/01/19 01/01/19 20:06 21:55 Temperature 97.7 F 97.5 F L Pulse Rate 139 H 118 H Respiratory 16 20 Rate Blood Pressure 173/105 H 149/101 H Plan: Clonidine 0.1 mg Once for DBP > 100 Librium protocol ordered.
[2019-01-02] MEDS ORDERED: chlordiazePOXIDE HCL 25 MG CAPSULE PO ONE (00:01)
[2019-01-02] MEDS: chlordiazePOXIDE HCL 25 MG CAPSULE PO SCH ×4 (06:04→23:15)
[2019-01-02] MEDS ORDERED: cloNIDine HCL 0.1 MG TABLET PO ONE ×2 (07:45→08:38)
[2019-01-02] MEDS ORDERED: METHADONE HCL 10 MG TABLET PO ONE (08:28)
[2019-01-02] MEDS ORDERED: METHADONE 120 MG, METHADONE 20 MG PO ONE (08:45)
[2019-01-02] MEDS ORDERED: METHADONE HCL 10 MG TABLET ONE (08:45)
[2019-01-02] MEDS ORDERED: METHADONE HCL 40 MG DISPERSABLE TABLET ONE (08:45)
[2019-01-02] MEDS: hydrOXYzine PAMOATE 25 MG CAPSULE (FP) PO PRN ×3 (09:23→20:58)
--- NOTE | 2019-01-02 09:34 | PN ---
[facility] CIWA - CIWA Score Nausea/Vomitin-No Nausea/No Vomiting Muscle Tremors: 3 Anxiety: 3 Agitation: 4-Moderately Restless Paroxysmal Sweats: 4-Forehead w/Sweat Beads Orientation: 0-Oriented Tacttile Disturbances: 0-None Auditory Disturbances: 0-None Visual Disturbances: 0-None Headache: 0-None Present CIWA-Ar Total Score: 14 BHS Progress Note (SOAP) Subjective: agitation sweats shakes interrupted sleep body aches irritable Objective: 01/02/19 09:33 Vital Signs Temperature 97.5 F L 01/02/19 09:18 Pulse Rate 111 H 01/02/19 09:18 Respiratory Rate 18 01/02/19 09:18 Blood Pressure 154/90 01/02/19 09:18 O2 Sat by Pulse Oximetry (%) labs pending aaox3 ambulating no acute distress Assessment: 01/02/19 09:49 withdrawal sx Plan: continue detox increase fluids labs pending clonidine 0.1 bid with parameters
[2019-01-02 09:55] LABS: HEMATOCRIT 40.3 % (35.4-49); HEMOGLOBIN 13.9 GM/dL (11.7-16.9); MCH 32.7 pg (25.7-33.7); MCHC 34.6 g/dl (32.0-35.9); MEAN CELL VOLUME 94.5 fl (80-96); MEAN PLT VOLUME 9.7 fl (7.5-11.1); PLATELET COUNT 201 K/MM3 (134-434); RBC 4.27 M/mm3 (4.00-5.60); RDW 14.3 % (11.9-15.9); WHITE BLOOD COUNT 9.4 K/mm3 (4.0-10.0)
[2019-01-02 09:59] LABS: ALBUMIN 3.7 g/dl (3.4-5.0); ALK PHOS 140 U/L (45-117); ANION GAP 9 MMOL/L (8-16); BILIRUBIN,TOTAL 2.6 mg/dL (0.2-1); BLOOD UREA NITROGEN 13 mg/dL (7-18); CHLORIDE 98 mmol/L (98-107); CO2 28 mmol/L (21-32); CREATININE 0.9 mg/dL (0.55-1.3); GLUCOSE,RANDOM 119 mg/dL (74-106); POTASSIUM 3.7 mmol/L (3.5-5.1); SGOT/AST 410 U/L (15-37); SGPT/ALT 204 U/L (13-61); SODIUM 136 mmol/L (136-145)
[2019-01-02] MEDS: HYDROCHLOROTHIAZIDE 25 MG TABLET (FP) PO SCH (10:42)
[2019-01-02] MEDS: amLODIPine BESYLATE 10 MG TABLET (FP) PO SCH (10:42)
[2019-01-02] MEDS: PRENATAL VITAMINS W/ FOLIC ACID TABLET (FP) PO SCH (10:42)
--- NOTE | 2019-01-02 12:30 | EKG ---
Test Reason : Blood Pressure : / mmHG Vent. Rate : 081 BPM Atrial Rate : 081 BPM P-R Int : 132 ms QRS Dur : 086 ms QT Int : 548 ms P-R-T Axes : 050 025 049 degrees QTc Int : 636 ms NORMAL SINUS RHYTHM PROLONGED QT ABNORMAL ECG WHEN COMPARED WITH ECG OF 09-JUN-2018 11:03, NONSPECIFIC T WAVE ABNORMALITY, IMPROVED IN LATERAL LEADS QT HAS LENGTHENED Confirmed by RENATA CRAWFORD, HELEN ([id number]) on 01/02/2019 12:30:10 PM Referred By: MOHAMUD KAUR Confirmed By:HELEN YANEZ MD
[2019-01-02] MEDS: chlordiazePOXIDE HCL 25 MG CAPSULE PO PRN ×2 (12:53→19:55)
[2019-01-02 13:56] LABS: EPI CELLS 1.1 /HPF (0-5/HPF); URINE APPEARANCE CLEAR; URINE BACTERIA 0.5 /hpf (NEGATIVE); URINE BILIRUBIN 1+ (NEGATIVE); URINE CASTS 11 /hpf (0-8); URINE COLOR DK YELLOW; URINE GLUCOSE (UA) NEGATIVE (NEGATIVE); URINE KETONE TRACE (NEGATIVE); URINE LEUK ESTERASE NEGATIVE (NEGATIVE); URINE NITRITE NEGATIVE (NEGATIVE); URINE PROTEIN TRACE (NEGATIVE); URINE RBC 2 /hpf (0-4); URINE WBC 1 /hpf (0-5)
[2019-01-02] MEDS: IBUPROFEN 400 MG TABLET (FP) PO PRN ×2 (14:00→21:09)
[2019-01-02] MEDS: METHOCARBAMOL 500 MG TABLET PO PRN ×2 (14:01→21:56)
--- NOTE | 2019-01-02 14:21 | CONSULT ---
[facility] Psychiatric Consult - Data Date of interview: 01/02/19 Admission source: [facility] Identifying data: This is one of several admissions to [facility] for this 33 y/ o male self-referred for detoxification (opioid, alcohol). Examined on . dependence.Patient indicates that his in a common-law relationship , a father of three, domiciled, unemployed and currently deprived of any source of income (occasional financial ssistance from relatives). Substance Abuse History: Confirmed by the patient in this session. Details in current [facility] report : Smoking history: Current every day smoker. Have you smoked in the past 12 months: Yes. Aproximately how many cigarettes per day: 10. Hx Chewing Tobacco Use: No. Initiated information on smoking cessation: Yes. 'Breaking Loose' booklet given: 01/01/19. - Substance & Tx. History. Hx Alcohol Use: Yes. Hx Substance Use: Yes. Hx Substance Use Treatment: Yes ( Patient unable to provide information). - Substances abused. Alcohol. Other (specify): alcohol. Substance route: Oral. Frequency: Daily. Amount used: 2 pints vodka. Age of first use: 18. Date of last use: 01/01/19 Medical History: Remarkable for hypertension, obesity, bronchial asthma, sciatica, nephrolithiasis, fatty liver, history of pancreatitis + antecedent of orthosurgery for fracture of right ankle (2014). Psychiatric History: Patient admits to a vague history of a psychiatric hospitalization at a facility in [facility]. Reportedly diagnosed with ADHD during adolescence. No information about care received at the time (no recall). No OPD care for several years until recently (prescribed trazodone + seroquel by a primary care physician). Medications not confirmed. Mr Johnson is currently on methadone maintenance (140 mg/day) at the [facility] program. Denies history of suicide attempts. Physical/Sexual Abuse/Trauma History: No history reported. Additional Comment: Toxicology is not available. Mental Status Exam - Mental Status Exam Alert and Oriented to: Time, Place, Person Cognitive Function: Good Patient Appearance: Unkempt (obese), Disheveled Mood: Nervous, Withdrawn, Anxious Affect: Mood Congruent, Constricted Patient Behavior: Fatigued, Appropriate, Cooperative Speech Pattern: Clear, Appropriate Voice Loudness: Normal Thought Process: Goal Oriented Thought Disorder: Not Present Hallucinations: Denies Suicidal Ideation: Denies Insight/Judgement: Poor Sleep: Difficulty falling asleep Appetite: Good Muscle strength/Tone: Normal Gait/Station: Normal Psychiatric Findings - Problem List ([place] 1, 2,3) (1) Alcohol dependence with uncomplicated withdrawal Current Visit: Yes Status: Acute (2) Opioid dependence on agonist therapy Current Visit: Yes Status: Chronic Comment: on methadone maintance on 140 mg qd, last dose today, dose pending verification (3) Nicotine dependence Current Visit: Yes Status: Chronic Qualifiers: Nicotine product type: cigarettes Substance use status: uncomplicated Qualified Code(s): F17.210 - Nicotine dependence, cigarettes, uncomplicated (4) Substance induced mood disorder Current Visit: Yes Status: Acute (5) Insomnia Current Visit: Yes Status: Chronic Qualifiers: Insomnia type: unspecified Qualified Code(s): G47.00 - Insomnia, unspecified - Initial Treatment Plan Initial Treatment Plan: Psychoeducation. Sleep hygiene. Support. Detoxification in progress. Recent pharmacy claims are revisited : no seroquel found; instead scripts for haloperidol + mirtazapine are noted as of 11/2018. Patient has expressed NO interest to resume these two formulations. Will observe this patient without any addition of psychotropic medications to his detox protocol. Psychiatry will follow.
[2019-01-02] MEDS: NICOTINE POLACRILEX 2 MG GUM BUC PRN (19:55)
[2019-01-02] MEDS: cloNIDine HCL 0.1 MG TABLET PO SCH (21:55)
[2019-01-02] MEDS: traZODone HCL 50 MG TABLET (FP) PO SCH (21:55)
[2019-01-02] MEDS: THIAMINE HCL 100 MG TABLET (FP) PO SCH (21:56)
[2019-01-02] MEDS ORDERED: cloNIDine HCL 0.1 MG TABLET PO SCH (22:00)
[2019-01-02] MEDS ORDERED: LORazepam 1 MG TABLET PO SCH (23:00)
[2019-01-03] MEDS: chlordiazePOXIDE HCL 25 MG CAPSULE PO PRN ×2 (03:03→18:56)
[2019-01-03] MEDS ORDERED: METHADONE HCL 40 MG DISPERSABLE TABLET ONE (04:47)
[2019-01-03] MEDS ORDERED: METHADONE HCL 10 MG TABLET ONE (04:47)
[2019-01-03] MEDS: METHADONE 120 MG, METHADONE 20 MG PO SCH (05:32)
[2019-01-03] MEDS: chlordiazePOXIDE HCL 25 MG CAPSULE PO SCH ×4 (05:32→21:59)
[2019-01-03] MEDS ORDERED: METHADONE HCL 10 MG TABLET PO SCH (06:00)
[2019-01-03] MEDS ORDERED: BENZOCAINE 20 % GEL TUBE MM PRN (08:43)
[2019-01-03] MEDS ORDERED: AMOX TR/POT CLAV 875MG/125MG TABLETS (FP) PO ONE (08:43)
[2019-01-03] MEDS ORDERED: COLLOIDAL OATMEAL 1 BAR EACH TP PRN (08:44)
[2019-01-03] MEDS: hydrOXYzine PAMOATE 25 MG CAPSULE (FP) PO PRN ×2 (09:16→17:29)
[2019-01-03] MEDS: MENTHOL/PHENOL 1 EACH UD MM PRN (09:16)
[2019-01-03] MEDS: METHOCARBAMOL 500 MG TABLET PO PRN ×2 (09:16→15:25)
[2019-01-03] MEDS: cloNIDine HCL 0.1 MG TABLET PO SCH ×2 (10:06→21:55)
[2019-01-03] MEDS: amLODIPine BESYLATE 10 MG TABLET (FP) PO SCH (10:06)
[2019-01-03] MEDS: PRENATAL VITAMINS W/ FOLIC ACID TABLET (FP) PO SCH (10:06)
[2019-01-03] MEDS: HYDROCHLOROTHIAZIDE 25 MG TABLET (FP) PO SCH (10:06)
--- NOTE | 2019-01-03 10:36 | PN ---
S CIWA - CIWA Score Nausea/Vomitin Muscle Tremors: 2 Anxiety: 2 Agitation: 2 Paroxysmal Sweats: 1-Minimal Palms Moist Orientation: 0-Oriented Tacttile Disturbances: 1-Very Mild Itch/Numbness Auditory Disturbances: 1-Very Mild Visual Disturbances: 0-None Headache: 2-Mild CIWA-Ar Total Score: 13 BHS Progress Note (SOAP) Subjective: alert,irritable,anxious,interrupted sleep,tremor Objective: 01/03/19 10:34 Vital Signs Temperature 97.3 F L 01/03/19 09:10 Pulse Rate 108 H 01/03/19 09:10 Respiratory Rate 01/03/19 09:10 Blood Pressure 150/90 01/03/19 09:10 O2 Sat by Pulse Oximetry (%) 01/03/19 10:34 Laboratory Last Values WBC 9.4 K/mm3 (4.0-10.0) 01/02/19 06:00 RBC 4.27 M/mm3 (4.00-5.60) 01/02/19 06:00 Hgb 13.9 GM/dL (11.7-16.9) 01/02/19 06:00 Hct 40.3 % (35.4-49) D 01/02/19 06:00 MCV 94.5 fl (80-96) 01/02/19 06:00 MCH 32.7 pg (25.7-33.7) 01/02/19 06:00 MCHC 34.6 g/dl (32.0-35.9) 01/02/19 06:00 RDW 14.3 % (11.9-15.9) 01/02/19 06:00 Plt Count 201 K/MM3 (134-434) D 01/02/19 06:00 MPV 9.7 fl (7.5-11.1) D 01/02/19 06:00 Sodium 136 mmol/L (136-145) 01/02/19 06:00 Potassium 3.7 mmol/L (3.5-5.1) 01/02/19 06:00 Chloride 98 mmol/L (98-107) 01/02/19 06:00 Carbon Dioxide 28 mmol/L (21-32) 01/02/19 06:00 Anion Gap 9 MMOL/L (8-16) 01/02/19 06:00 BUN 13 mg/dL (7-18) 01/02/19 06:00 Creatinine 0.9 mg/dL (0.55-1.3) 01/02/19 06:00 Creat Clearance w eGFR 98.42 (>60) 01/02/19 06:00 Random Glucose 119 mg/dL (74-106) H 01/02/19 06:00 Calcium 9.0 mg/dL (8.5-10.1) 01/02/19 06:00 Total Bilirubin 2.6 mg/dL (0.2-1) H 01/02/19 06:00 AST 410 U/L (15-37) H 01/02/19 06:00 ALT 204 U/L (13-61) H 01/02/19 06:00 Alkaline Phosphatase 140 U/L (45-117) H 01/02/19 06:00 Total Protein 7.0 g/dl (6.4-8.2) 01/02/19 06:00 Albumin 3.7 g/dl (3.4-5.0) 01/02/19 06:00 Urine Color Dk yellow 01/02/19 06:00 Urine Appearance Clear 01/02/19 06:00 Urine pH 6.0 (5.0-8.0) 01/02/19 06:00 Ur Specific [place] 1.034 (1.010-1.035) 01/02/19 06:00 Urine Protein Trace (NEGATIVE) 01/02/19 06:00 Urine Glucose (UA) Negative (NEGATIVE) 01/02/19 06:00 Urine Ketones Trace (NEGATIVE) H 01/02/19 06:00 Urine Blood Trace (NEGATIVE) 01/02/19 06:00 Urine Nitrite Negative (NEGATIVE) 01/02/19 06:00 Urine Bilirubin 1+ (NEGATIVE) H 01/02/19 06:00 Urine Urobilinogen 1.0 mg/dL (0.2-1.0) 01/02/19 06:00 Ur Leukocyte Esterase Negative (NEGATIVE) 01/02/19 06:00 Urine WBC (Auto) 1 /hpf (0-5) 01/02/19 06:00 Urine RBC (Auto) 2 /hpf (0-4) 01/02/19 06:00 Urine Casts (Auto) 11 /hpf (0-8) 01/02/19 06:00 U Epithel Cells (Auto) 1.1 /HPF (0-5/HPF) 01/02/19 06:00 Urine Bacteria (Auto) 0.5 /hpf (NEGATIVE) 01/02/19 06:00 RPR Titer Nonreactive (NONREACTIVE) 01/02/19 06:00 Assessment: 01/03/19 10:35 withdrawal symptom Plan: continue detox,d/c tylenol for elevation of alt,ast,repeat in am
[2019-01-03] MEDS ORDERED: hydrOXYzine PAMOATE 50 MG CAPSULE (FP) PO ONE (11:05)
[2019-01-03] MEDS: IBUPROFEN 400 MG TABLET (FP) PO PRN ×2 (13:23→18:56)
[2019-01-03] MEDS ORDERED: HALOPERIDOL 5 MG TABLET (FP) PO SCH (14:30)
--- NOTE | 2019-01-03 14:51 | PN ---
Psychiatric Progress Note Vital Signs: Vital Signs Period Temp Pulse Resp BP Sys/Kim Pulse Ox Last 24 Hr 97.3 F-98.6 F 84-108 - 130-158/73-102 Date of Session: 01/03/19 Chief Complaint:: "I am anxious" HPI: Patient tearful throughout the day. As per nursing staff patient is complaining of anxiety. ROS: Remarkable for hypertension, obesity, bronchial asthma, sciatica, nephrolithiasis, fatty liver, history of pancreatitis + antecedent of orthosurgery for fracture of right ankle (2014) Current Medications: Active Medications Generic Name Dose Route Start Last Admin Trade Name Freq PRN Reason Stop Dose Admin Al Hydroxide/Mg Hydroxide 30 ml 01/01/19 20:56 Mylanta Oral Suspension - PO Q6H PRN DYSPEPSIA Amlodipine Besylate 10 mg 01/02/19 10:00 01/03/19 10:06 Norvasc - PO 10 mg DAILY AUDIE Administration Amoxicillin/Clavulanate Potassium 1 tab 01/03/19 17:30 Augmentin - 875mg Tablet PO 01/10/19 17:29 BID@0800,1730 AUDIE Benzocaine 1 applic 01/03/19 08:43 Anbesol - MM Q6H PRN FOR TOOTHACHE Bismuth Subsalicylate 524 mg 01/01/19 20:56 Pepto-Bismol - PO Q1H PRN DIARRHEA Chlordiazepoxide HCl 10 mg 01/04/19 05:00 Librium - PO 01/04/19 23:01 [id number] AUDIE Chlordiazepoxide HCl 10 mg 01/05/19 05:00 Librium - PO 01/06/19 05:01 Q12H AUDIE Chlordiazepoxide HCl 10 mg 01/04/19 05:00 Librium - PO 01/05/19 05:00 Q4H PRN WITHDRAWAL(CONT SUBST) Chlordiazepoxide HCl 25 mg 01/03/19 05:00 01/03/19 10:07 Librium - PO 01/03/19 23:01 25 mg [id number] AUDIE Administration Chlordiazepoxide HCl 25 mg 01/02/19 00:01 01/03/19 03:03 Librium - PO 01/04/19 05:00 25 mg Q4H PRN Administration WITHDRAWAL(CONT SUBST) Clonidine 0.1 mg 01/02/19 22:00 01/03/19 10:06 Catapres - PO 0.1 mg BID AUDIE Administration Colloidal Oatmeal 1 applic 01/03/19 08:44 Aveeno Soap - TP DAILY PRN HYGEINE Eucalyptus/Menthol/Phenol/Sorbitol 1 each 01/01/19 20:56 01/03/19 09:16 Cepastat Lozenge - MM 01/07/19 20:56 1 each Q4H PRN Administration SORE THROAT Gabapentin 300 mg 01/03/19 14:30 Neurontin - PO TID AUDIE Hydrochlorothiazide 25 mg 01/02/19 10:00 01/03/19 10:06 Hctz - PO 25 mg DAILY AUDIE Administration Hydroxyzine Pamoate 50 mg 01/02/19 08:23 01/03/19 09:16 Vistaril - PO 01/07/19 20:56 50 mg Q6H PRN Administration For Anxiety Ibuprofen 400 mg 01/01/19 20:56 01/03/19 13:23 Motrin - PO 400 mg Q6H PRN Administration PAIN LEVEL 1 - 3 Ibuprofen 400 mg 01/01/19 20:56 Motrin - PO Q6H PRN FEVER Magnesium Citrate 300 ml 01/01/19 20:56 Citroma - PO Q48H PRN CONSTIPATION Magnesium Hydroxide 30 ml 01/01/19 20:56 Milk Of Magnesia - PO PRN PRN CONSTIPATION Melatonin 5 mg 01/01/19 20:56 01/01/19 22:21 Melatonin PO 5 mg HS PRN Administration INSOMNIA Methadone HCl 120 mg/ 140 mg 01/03/19 06:00 01/03/19 05:32 Methadone HCl 20 mg PO 01/09/19 05:59 140 mg DAILY@0600 AUDIE Administration Methocarbamol 500 mg 01/01/19 20:56 01/03/19 09:16 Robaxin - PO 01/07/19 20:56 500 mg Q6H PRN Administration MUSCLE SPASMS Nicotine Polacrilex 2 mg 01/02/19 19:48 01/02/19 19:55 Nicorette Gum - BUC 2 mg Q2H PRN Administration NICOTINE REPLACEMENT RX Multivit/Folic Acid/Iron 1 tab 01/02/19 10:00 01/03/19 10:06 Vitamins (Sjr) - PO 1 tab DAILY AUDIE Administration Thiamine HCl 100 mg 01/01/19 22:00 01/02/19 21:56 Vitamin B1 - PO 100 mg HS AUDIE Administration Trazodone HCl 50 mg 01/02/19 22:00 01/02/19 21:55 Desyrel - PO 50 mg HS AUDIE Administration Medication(s) Change(s): Yes. Will add Gabapentin 300mg TID. Current Side Effect: No Lab tests ordered: No Lab tests reviewed: Yes Provider note:: Patient tearful and anxious. He reports history of anxiety and reports taking seroquel and amitriptyline although medication is not noted on external records. Dr. Cobian note read and appreciated. External records show a prescription of haldol 5mg BID + Mirtzapine 15mg HS. Haldol and mirtzapine not prescribed as patient refused to accept medication when offered by Dr. Cobian. Patient is currently on methadone maintenance of 140mg daily. Patient has been admitted to detox/rehab on numerous ocassions and has not been prescribed seroquel. Patient reports most recently accepting haldol 5mg three days ago. No psychosis noted. EGK reviewed: Patient with a Prolong QT. Qt/ QTC 548/636 ms. Vistaril will not be increased at this time. Haldol 5mg will not be ordered due to further risk of prolonging qt. Trazodone 50mg effective for insomnia. Will continue current medication. Will order Gabapentin 300mg TID for anxiety. Medical VISUALIZER made aware. Patient denies chest pain. EKG ordered. Total face to face time:: 25 Mental Status Exam - Mental Status Exam Alert and Oriented to: Time, Place, Person Cognitive Function: Good Patient Appearance: Well Groomed Mood: Anxious Affect: Mood Congruent Patient Behavior: Crying, Cooperative Speech Pattern: Appropriate Voice Loudness: Moderately Soft/Quiet Thought Process: Goal Oriented Thought Disorder: Not Present Hallucinations: Denies Suicidal Ideation: Denies Homicidal Ideation: Denies Insight/Judgement: Poor Sleep: Fair Appetite: Fair Muscle strength/Tone: Normal Gait/Station: Normal Psychiatric Treatment Plan - Problem List (1) Substance-induced anxiety disorder Comment: .. (2) Alcohol dependence with uncomplicated withdrawal Comment: .. (3) Substance induced mood disorder Comment: .. (4) Insomnia Qualifiers: Insomnia type: unspecified Qualified Code(s): G47.00 - Insomnia, unspecified (5) Opioid dependence on agonist therapy Comment: on methadone maintance on 140 mg qd, last dose today, dose pending verification
[2019-01-03] MEDS: GABAPENTIN 300 MG CAPSULE (FP) PO SCH ×2 (14:56→21:55)
[2019-01-03] MEDS: AMOX TR/POT CLAV 875MG/125MG TABLETS (FP) PO SCH (16:37)
[2019-01-03] MEDS: THIAMINE HCL 100 MG TABLET (FP) PO SCH (21:55)
[2019-01-03] MEDS: traZODone HCL 50 MG TABLET (FP) PO SCH (21:55)
[2019-01-03] MEDS ORDERED: LORazepam 0.5 MG TABLET PO PRN (23:00)
[2019-01-03] MEDS ORDERED: LORazepam 0.5 MG TABLET PO SCH (23:00)
[2019-01-04] MEDS ORDERED: METHADONE HCL 40 MG DISPERSABLE TABLET ONE (03:12)
[2019-01-04] MEDS ORDERED: METHADONE HCL 10 MG TABLET ONE (03:13)
[2019-01-04] MEDS: hydrOXYzine PAMOATE 25 MG CAPSULE (FP) PO PRN ×2 (03:35→17:30)
[2019-01-04] MEDS ORDERED: chlordiazePOXIDE HCL 10 MG CAPSULE PO PRN (05:00)
[2019-01-04] MEDS: chlordiazePOXIDE HCL 10 MG CAPSULE PO SCH ×3 (05:24→16:56)
[2019-01-04] MEDS: GABAPENTIN 300 MG CAPSULE (FP) PO SCH ×3 (05:25→22:00)
[2019-01-04] MEDS: METHADONE 120 MG, METHADONE 20 MG PO SCH (05:25)
[2019-01-04] MEDS: IBUPROFEN 400 MG TABLET (FP) PO PRN ×3 (06:40→20:10)
[2019-01-04] MEDS: NICOTINE POLACRILEX 2 MG GUM BUC PRN ×2 (06:41→13:57)
[2019-01-04] MEDS: AMOX TR/POT CLAV 875MG/125MG TABLETS (FP) PO SCH ×2 (07:12→16:56)
[2019-01-04 10:09] LABS: SGOT/AST 188 U/L (15-37); SGPT/ALT 161 U/L (13-61)
[2019-01-04] MEDS: amLODIPine BESYLATE 10 MG TABLET (FP) PO SCH (10:23)
[2019-01-04] MEDS: HYDROCHLOROTHIAZIDE 25 MG TABLET (FP) PO SCH (10:23)
[2019-01-04] MEDS: cloNIDine HCL 0.1 MG TABLET PO SCH ×2 (10:23→22:00)
[2019-01-04] MEDS: PRENATAL VITAMINS W/ FOLIC ACID TABLET (FP) PO SCH (10:23)
--- NOTE | 2019-01-04 10:26 | EKG ---
Test Reason : Blood Pressure : / mmHG Vent. Rate : 093 BPM Atrial Rate : 093 BPM P-R Int : 130 ms QRS Dur : 080 ms QT Int : 278 ms P-R-T Axes : 041 015 035 degrees QTc Int : 345 ms NORMAL SINUS RHYTHM MINIMAL VOLTAGE CRITERIA FOR LVH, MAY BE NORMAL VARIANT NONSPECIFIC T WAVE ABNORMALITY ABNORMAL ECG WHEN COMPARED WITH ECG OF 02-JAN-2019 09:22, NONSPECIFIC T WAVE ABNORMALITY, WORSE IN LATERAL LEADS QT HAS SHORTENED Confirmed by RENATA CRAWFORD, HELEN ([id number]) on 01/04/2019 10:26:27 AM Referred By: TRICE GRACE Confirmed By:HELEN YANEZ MD
[2019-01-04 10:40] LABS: INR 0.98 (0.83-1.09); PROTHROMBIN TIME (PATIENT) 11.6 SEC (9.7-13.0)
--- NOTE | 2019-01-04 11:57 | PN ---
S Progress Note (SOAP) Subjective: alert,irritable,anxious,interrupted sleep Objective: 01/04/19 11:55 Vital Signs Temperature 97.5 F L 01/04/19 09:20 Pulse Rate 93 H 01/04/19 09:20 Respiratory Rate 18 01/04/19 09:20 Blood Pressure 116/77 01/04/19 09:20 O2 Sat by Pulse Oximetry (%) Assessment: 01/04/19 11:56 withdrawal symptom Plan: continue detox,discharge in am
[2019-01-04] MEDS: BISMUTH SUBSALICYLATE 524 MG/30 ML UD PO PRN ×2 (13:27→17:00)
--- NOTE | 2019-01-04 18:24 | PN ---
S Progress Note Note: pt c/o continued tremors w/ librium , requesting Valim . Per MR , pt initially w/ Lorazepam taper , changed to Librium 01/02/19 . O UE tremors , severe anxiety , pacing in the hallway CBC, BMP 01/02/19 06:00 01/02/19 06:00 Vital Signs - 8 hr 01/04/19 14:23 Temperature 97.2 F L Pulse Rate 96 H Respiratory 183 H Rate Blood Pressure 125/87 P : post -acute withdrawal . Chlordiazepoxide changed to Valium , taper to be completed 01/06/19 in the a.m.
[2019-01-04] MEDS: diazePAM 5 MG TABLET PO PRN (18:53)
[2019-01-04] MEDS: diazePAM 5 MG TABLET PO SCH (22:00)
[2019-01-04] MEDS: THIAMINE HCL 100 MG TABLET (FP) PO SCH (22:00)
[2019-01-04] MEDS: MELATONIN 5 MG TABLETS PO PRN (22:01)
[2019-01-04] MEDS: traZODone HCL 50 MG TABLET (FP) PO SCH (22:02)
[2019-01-05] MEDS: diazePAM 5 MG TABLET PO PRN ×4 (00:43→17:11)
[2019-01-05] MEDS: MENTHOL/PHENOL 1 EACH UD MM PRN (04:00)
[2019-01-05] MEDS ORDERED: chlordiazePOXIDE HCL 10 MG CAPSULE PO SCH (05:00)
[2019-01-05] MEDS ORDERED: METHADONE HCL 10 MG TABLET ONE (05:18)
[2019-01-05] MEDS ORDERED: METHADONE HCL 40 MG DISPERSABLE TABLET ONE (05:18)
[2019-01-05] MEDS: GABAPENTIN 300 MG CAPSULE (FP) PO SCH ×3 (05:21→22:03)
[2019-01-05] MEDS: METHADONE 120 MG, METHADONE 20 MG PO SCH (05:21)
[2019-01-05] MEDS: hydrOXYzine PAMOATE 25 MG CAPSULE (FP) PO PRN ×3 (07:55→20:20)
[2019-01-05] MEDS: METHOCARBAMOL 500 MG TABLET PO PRN ×3 (07:55→20:21)
[2019-01-05] MEDS: amLODIPine BESYLATE 10 MG TABLET (FP) PO SCH (09:50)
[2019-01-05] MEDS: PRENATAL VITAMINS W/ FOLIC ACID TABLET (FP) PO SCH (09:50)
[2019-01-05] MEDS: HYDROCHLOROTHIAZIDE 25 MG TABLET (FP) PO SCH (09:50)
[2019-01-05] MEDS: AMOX TR/POT CLAV 875MG/125MG TABLETS (FP) PO SCH ×2 (09:50→17:11)
[2019-01-05] MEDS: cloNIDine HCL 0.1 MG TABLET PO SCH ×2 (09:50→22:03)
[2019-01-05] MEDS: diazePAM 5 MG TABLET PO SCH ×2 (09:51→22:03)
[2019-01-05] MEDS: BISMUTH SUBSALICYLATE 524 MG/30 ML UD PO PRN ×2 (10:23→21:42)
--- NOTE | 2019-01-05 11:32 | PN ---
S Progress Note (SOAP) Subjective: Back pain,diarrhea, shakes and sweats Toothache Objective: 01/05/19 11:30 Vital Signs 01/05/19 01/05/19 06:25 10:00 Temperature 96 F L 97.5 F L Pulse Rate 92 H 81 Respiratory 18 16 Rate Blood Pressure 128/83 127/64 Laboratory Last Values WBC 9.4 K/mm3 (4.0-10.0) 01/02/19 06:00 RBC 4.27 M/mm3 (4.00-5.60) 01/02/19 06:00 Hgb 13.9 GM/dL (11.7-16.9) 01/02/19 06:00 Hct 40.3 % (35.4-49) D 01/02/19 06:00 MCV 94.5 fl (80-96) 01/02/19 06:00 MCH 32.7 pg (25.7-33.7) 01/02/19 06:00 MCHC 34.6 g/dl (32.0-35.9) 01/02/19 06:00 RDW 14.3 % (11.9-15.9) 01/02/19 06:00 Plt Count 201 K/MM3 (134-434) D 01/02/19 06:00 MPV 9.7 fl (7.5-11.1) D 01/02/19 06:00 PT with INR 11.60 SEC (9.7-13.0) 01/04/19 07:00 INR 0.98 (0.83-1.09) 01/04/19 07:00 Sodium 136 mmol/L (136-145) 01/02/19 06:00 Potassium 3.7 mmol/L (3.5-5.1) 01/02/19 06:00 Chloride 98 mmol/L (98-107) 01/02/19 06:00 Carbon Dioxide 28 mmol/L (21-32) 01/02/19 06:00 Anion Gap 9 MMOL/L (8-16) 01/02/19 06:00 BUN 13 mg/dL (7-18) 01/02/19 06:00 Creatinine 0.9 mg/dL (0.55-1.3) 01/02/19 06:00 Creat Clearance w eGFR 98.42 (>60) 01/02/19 06:00 Random Glucose 119 mg/dL (74-106) H 01/02/19 06:00 Calcium 9.0 mg/dL (8.5-10.1) 01/02/19 06:00 Total Bilirubin 2.6 mg/dL (0.2-1) H 01/02/19 06:00 AST 188 U/L (15-37) H 01/04/19 07:00 ALT 161 U/L (13-61) H 01/04/19 07:00 Alkaline Phosphatase 140 U/L (45-117) H 01/02/19 06:00 Total Protein 7.0 g/dl (6.4-8.2) 01/02/19 06:00 Albumin 3.7 g/dl (3.4-5.0) 01/02/19 06:00 Urine Color Dk yellow 01/02/19 06:00 Urine Appearance Clear 01/02/19 06:00 Urine pH 6.0 (5.0-8.0) 01/02/19 06:00 Ur Specific [place] 1.034 (1.010-1.035) 01/02/19 06:00 Urine Protein Trace (NEGATIVE) 01/02/19 06:00 Urine Glucose (UA) Negative (NEGATIVE) 01/02/19 06:00 Urine Ketones Trace (NEGATIVE) H 01/02/19 06:00 Urine Blood Trace (NEGATIVE) 01/02/19 06:00 Urine Nitrite Negative (NEGATIVE) 01/02/19 06:00 Urine Bilirubin 1+ (NEGATIVE) H 01/02/19 06:00 Urine Urobilinogen 1.0 mg/dL (0.2-1.0) 01/02/19 06:00 Ur Leukocyte Esterase Negative (NEGATIVE) 01/02/19 06:00 Urine WBC (Auto) 1 /hpf (0-5) 01/02/19 06:00 Urine RBC (Auto) 2 /hpf (0-4) 01/02/19 06:00 Urine Casts (Auto) 11 /hpf (0-8) 01/02/19 06:00 U Epithel Cells (Auto) 1.1 /HPF (0-5/HPF) 01/02/19 06:00 Urine Bacteria (Auto) 0.5 /hpf (NEGATIVE) 01/02/19 06:00 RPR Titer Nonreactive (NONREACTIVE) 01/02/19 06:00 Labs noted Assessment: 01/05/19 11:31 Withdrawal sx Infected tooth Plan: Continue detox Continue Augmentin
[2019-01-05] MEDS: IBUPROFEN 400 MG TABLET (FP) PO PRN (17:48)
[2019-01-05] MEDS: traZODone HCL 50 MG TABLET (FP) PO SCH (22:03)
[2019-01-05] MEDS: THIAMINE HCL 100 MG TABLET (FP) PO SCH (22:03)
[2019-01-05] MEDS: MELATONIN 5 MG TABLETS PO PRN (22:06)
[2019-01-06] MEDS: diazePAM 5 MG TABLET PO PRN (00:47)
[2019-01-06] MEDS: IBUPROFEN 400 MG TABLET (FP) PO PRN ×2 (00:52→07:03)
[2019-01-06] MEDS ORDERED: METHADONE HCL 10 MG TABLET ONE (04:33)
[2019-01-06] MEDS ORDERED: METHADONE HCL 40 MG DISPERSABLE TABLET ONE (04:33)
[2019-01-06] MEDS: METHADONE 120 MG, METHADONE 20 MG PO SCH (05:55)
[2019-01-06] MEDS: GABAPENTIN 300 MG CAPSULE (FP) PO SCH (05:57)
[2019-01-06] MEDS: METHOCARBAMOL 500 MG TABLET PO PRN (05:58)
[2019-01-06] MEDS ORDERED: diazePAM 5 MG TABLET PO SCH (06:00)
[2019-01-06 06:40] VITALS: BP 126/71; PULSE 97; TEMP 97.3
[2019-01-06] MEDS: BISMUTH SUBSALICYLATE 524 MG/30 ML UD PO PRN (07:24)
[2019-01-06] MEDS: AMOX TR/POT CLAV 875MG/125MG TABLETS (FP) PO SCH (07:24)
--- NOTE | 2019-01-06 11:28 | DS ---
[facility] Detox Discharge Summary Admission Date: 01/01/19 Discharge Date: 01/06/19 - History Present History: Alcohol Dependence - Physical Exam Results Vital Signs: Vital Signs Temperature 97.3 F L 01/06/19 06:39 Pulse Rate 97 H 01/06/19 06:39 Respiratory Rate 20 01/06/19 06:39 Blood Pressure 126/71 01/06/19 06:39 O2 Sat by Pulse Oximetry (%) - Treatment Hospital Course: Detox Protocol Followed, Detoxed Safely, Responded well, Discharged Condition Good, Rehab Referral Accepted Patient has Accepted a Rehab Referral to: PATIENT TO FOLLOW UP TOMORROW AT [facility] AT [facility]. - Medication Discharge Medications: Ambulatory Orders Methadone [Dolophine -] 140 mg PO DAILY 02/05/18 Ferrous Sulfate [Feosol] 325 mg PO DAILY@0800 #30 ud 06/08/18 hydrOXYzine PAMOATE [Vistaril -] 100 mg PO TID #90 capsule 06/11/18 Albuterol Sulfate Inhaler - [Ventolin HFA Inhaler -] 2 puff IH Q4H PRN #1 inhaler 06/12/18 Amlodipine Besylate [Norvasc -] 10 mg PO DAILY #30 tablet 06/12/18 Amoxicillin - [Amoxicillin 500mg Capsule -] 500 mg PO BID #10 capsule 06/12/18 Hydrochlorothiazide [Hctz -] 25 mg PO DAILY #30 tablet 06/12/18 Haloperidol [Haldol -] 5 mg PO BID 01/03/19 - AMA Did Patient Leave Against Medical Advice: No
== END 2019-01-06 09:11 | disposition home or self-care (01) | DRG 773 ==
LOC: YASAS 19:39 → Y6N 21:21
PROVIDERS: ADMIT Surgery; ATTEND Surgery
PROC: HZ2ZZZZ Detoxification Services for Substance Abuse Treatment (ICD-10-PCS; principal; 2019-01-01)
DX: F10.230 Alcohol dependence with withdrawal, uncomplicated (principal); F11.20 Opioid dependence, uncomplicated; F17.210 Nicotine dependence, cigarettes, uncomplicated; F19.24 Other psychoactive substance dependence with psychoactive substance-induced mood disorder; F41.8 Other specified anxiety disorders; F32.9 Major depressive disorder, single episode, unspecified; F19.280 Other psychoactive substance dependence with psychoactive substance-induced anxiety disorder; G47.00 Insomnia, unspecified; I10 Essential (primary) hypertension; J45.20 Mild intermittent asthma, uncomplicated; K76.0 Fatty (change of) liver, not elsewhere classified; K08.89 Other specified disorders of teeth and supporting structures
CPT/HCPCS: 36415; 80053; 81003; 84450; 84460; 85027; 85610; 86593; 93005; 93010; J0735